=== PATIENT | female | born 1970 | race Caucasian/White ===

== ENCOUNTER 2017-02-25 11:19 | Inpatient (IN) | payer OTHER ==
[2017-02-25] VITALS (9 sets, daily range): BP systolic 102–142; BP diastolic 45–80; PULSE 34–43; RESP 15–21; Ht 162.6 cm; Wt 64.3 kg
[~2017-02-25] VITALS: Ht 162.6 cm; Wt 64.3 kg
[~2017-02-25 11:19] MED LIST: DIAZ10TA4 PO; GABA300C16 PO; QUET400T PO
[2017-02-25] MEDS ORDERED: SOD CHLORIDE 0.9% 1,000 ML IV STA (11:32)
[2017-02-25] MEDS ORDERED: PROMETHAZINE 25 MG TAB PO ONE (12:00)
[2017-02-25] MEDS ORDERED: LEVE-5 PO (12:15)
[2017-02-25] MEDS ORDERED: DUR75P TD (12:15)
[2017-02-25 12:16] LABS: ADD SCAN DIFF NO
[2017-02-25] MEDS ORDERED: CLON-379 PO (12:16)
[2017-02-25 12:18] LABS: BASOPHILS % 0.4 % (0.0-2.0); EOSINOPHILS # 0.1 10^3/ul (0.0-0.5); EOSINOPHILS % 0.8 % (0.0-7.0); HEMATOCRIT 38.3 % (37.0-47.0); HEMOGLOBIN 12.6 g/dl (12.0-16.0); LYMPHOCYTES # 2.4 10^3/ul (0.8-2.9); LYMPHOCYTES % 32.1 % (15.0-51.0); MEAN CORPUSCULAR HGB CONC 32.9 g/dl (32.0-37.0); MEAN CORPUSCULAR VOLUME 85.1 fl (82.0-101.0); MEAN PLATELET VOLUME 10.5 fl (7.4-10.4); MONOCYTE # 0.4 10^3/ul (0.3-0.9); MONOCYTES % 5.2 % (0.0-11.0); NEUTROPHIL # 4.5 10^3/ul (1.6-7.5); NEUTROPHILS % 61.4 % (39.0-77.0); PLATELET COUNT 273 10^3/UL (140-415); RED CELL DISTRIBUTION WIDTH 14.4 % (11.5-14.5); WHITE BLOOD COUNT 7.3 10^3/ul (4.8-10.8)
[2017-02-25 12:42] LABS: INR 1.02; PROTIME 13.4 Sec (12.2-14.2)
[2017-02-25 12:43] LABS: ANION GAP 13 (8-16); BLOOD UREA NITROGEN 13 mg/dl (7-20); CALCIUM 9.7 mg/dl (8.4-10.2); CARBON DIOXIDE 23 mmol/L (21-31); CHLORIDE 108 mmol/L (97-110); CREATININE 0.66 mg/dl (0.44-1.00); GLUCOSE 127 mg/dl (70-220); PARTIAL THROMBOPLASTIN TIME 20.3 Sec (25.0-35.0); POTASSIUM 3.8 mmol/L (3.5-5.1); SODIUM 140 mmol/L (135-144)
[2017-02-25 12:59] LABS: TROPONIN-I < 0.012 ng/ml (0.00-0.12)
[2017-02-25] MEDS ORDERED: ACETAMINOPHEN 500 MG TAB PO STA (12:59)
--- NOTE | 2017-02-25 13:30 | RADRPT ---
PROCEDURE: Chest x-ray CLINICAL INDICATION: Chest pain TECHNIQUE: Chest single view COMPARISON: 01/10/2015 FINDINGS: The heart is normal in size. The pulmonary vessels are normal in caliber. The lungs are clear. Th e costophrenic angles are sharp. The visualized bony thorax is unremarkable. IMPRESSION: No acute cardiopulmonary disease. RPTAT: HH .José Srinivasan MD, Date Time Electronically viewed and signed by .José Srinivasan MD, MD on 02/25/2017 13:29 .W/
[2017-02-25] MEDS ORDERED: NALOXONE (0.4 MG/ML) INJ ONE (13:34)
[2017-02-25] MEDS ORDERED: NALOXONE (0.4 MG/ML) INJ IV ONE (14:00)
[2017-02-25] MEDS ORDERED: SOD CHLORIDE 0.9% 1,000 ML IV SCH (14:48)
--- NOTE | 2017-02-25 14:54 | ERA ---
ER Documentation Chief Complaint Date/Time DATE: 02/25/17 TIME: 14:50 Chief Complaint WITNESSED SYNCOPAL EPISODE HPI This is a 46-year-old female who presents to the emergency room after a syncopal episode. The patient states that she was at her pain management clinic and they did take a blood pressure noted her systolic pressure was 70. The patient was complaining of dizziness. They did stand her up to help her walk and she passed out. The patient states that she is feeling weak and dizzy and came to the ER by ambulance for evaluation from her pain management clinic. The patient states she has a history of a spinal tumor however she has not found a surgeon to remove the tumor at this point ROS All systems reviewed and are negative except as per history of present illness. Medications Home Meds Reported Medications Clonidine Hcl* (Clonidine Hcl*) 0.1 Mg Tab, 0.1 MG PO DAILY, TAB 02/25/17 Levetiracetam* (Keppra*) 500 Mg Tablet, 500 MG PO BID, TAB 02/25/17 Fentanyl Patch* (Duragesic Patch*) 75 Mcg/Hr Transdermal Patch, 50 PATCH TD Q72H , PATCH 02/25/17 Gabapentin* (Gabapentin*) 300 Mg Capsule, 300 MG PO BID, CAP 01/06/15 Diazepam* (Diazepam*) 10 Mg Tablet, 10 MG PO QHS, TAB 01/06/15 Quetiapine Fumarate* (Seroquel*) 400 Mg Tablet, 400 MG PO HS, TAB 01/06/15 Discontinued Reported Medications Diazepam* (Diazepam*) 10 Mg Tablet, 10 MG PO BID Y for ANXIETY, TAB 01/06/15 Allergies Allergies: Coded Allergies: ketorolac (Verified Allergy, Unknown, 01/10/15) metoclopramide (Verified Allergy, Unknown, 01/10/15) ondansetron (Verified Allergy, Unknown, 01/10/15) prednisone (Verified Allergy, Unknown, 01/10/15) prochlorperazine (Verified Allergy, Unknown, 01/06/15) PMhx/Soc History of Surgery: No Anesthesia Reaction: No Hx Neurological Disorder: No Hx Respiratory Disorders: Yes (Chronic URI) Hx Cardiac Disorders: No Hx Psychiatric Problems: No Hx Miscellaneous Medical Probl: Yes (Atopic Dermatitis;Scabies, "INFECTION IN BRAIN") Hx Alcohol Use: No Hx Substance Use: No Hx Tobacco Use: No Smoking Status: Never smoker Physical Exam Vitals Vital Signs Date Time Temp Pulse Resp B/P Pulse Ox O2 Delivery O2 Flow Rate FiO2 02/25/17 13:10 42 22 98/71 100 Nasal Cannula 2.0 02/25/17 13:08 Nasal Cannula 2 02/25/17 11:21 98.5 53 14 95/71 98 Physical Exam INITIAL VITAL SIGNS: Reviewed by me GENERAL: The patient is well developed and appropriate for usual state of health in no apparent distress HEENT: Dry mucous membranes, pupils equal, round, and reactive to light. EOMI. There is no scleral icterus. NECK: C-spine is soft and supple, there is no meningismus. There is no cervical lymphadenopathy. LUNGS: Clear to auscultation bilaterally. There are no rales, wheezes or rhonchi. HEART: Bradycardic, no murmurs, clicks, rubs or gallops. ABDOMEN: Soft, non-tender, non-distended. There are bowel sounds in all four quadrants. No rebound or guarding. EXTREMITIES: There is no peripheral cyanosis or edema. No focal swelling or erythema. NEUROLOGICAL: The patient moves all four extremities with 5/5 strength. Cranial nerves II - XII are intact. Normal gait. Alert and oriented SKIN: There is no apparent rash or petechiae. HEME/LYMPHATIC: There is no evidence of excessive bruising or lymphedema. PSYCHIATRIC: The patient does not appear anxious or depressed. Result Diagram: 02/25/17 1210 02/25/17 1210 Results 24 hrs Laboratory Tests Test 02/25/17 12:10 White Blood Count 7.310^3/ul Red Blood Count 4.5010^6/ul Hemoglobin 12.6g/dl Hematocrit 38.3% Mean Corpuscular Volume 85.1fl Mean Corpuscular Hemoglobin 28.0pg Mean Corpuscular Hemoglobin Concent 32.9g/dl Red Cell Distribution Width 14.4% Platelet Count 34055^3/UL Mean Platelet Volume 10.5fl Neutrophils % 61.4% Lymphocytes % 32.1% Monocytes % 5.2% Eosinophils % 0.8% Basophils % 0.4% Nucleated Red Blood Cells % 0.0/100WBC Neutrophils # 4.510^3/ul Lymphocytes # 2.410^3/ul Monocytes # 0.410^3/ul Eosinophils # 0.110^3/ul Basophils # 0.010^3/ul Nucleated Red Blood Cells # 0.010^3/ul Prothrombin Time 13.4Sec Prothrombin Time Ratio 1.0 INR International Normalized Ratio 1.02 Activated Partial Thromboplast Time 20.3Sec Sodium Level 140mmol/L Potassium Level 3.8mmol/L Chloride Level 108mmol/L Carbon Dioxide Level 23mmol/L Anion Gap 13 Blood Urea Nitrogen 13mg/dl Creatinine 0.66mg/dl Glucose Level 127mg/dl Calcium Level 9.7mg/dl Troponin I < 0.012ng/ml Current Medications Medications (Trade) Dose Ordered Sig/Smith Route PRN Reason Start Time Stop Time Status Last Admin Dose Admin Sodium Chloride (NS) 1,000 ml @ 1,000 mls/hr Q1H STAT IV 02/25/17 11:32 02/25/17 12:31 DC 02/25/17 12:00 Promethazine HCl (Phenergan) 25 mg ONCE ONCE PO 02/25/17 12:00 02/25/17 12:01 DC 02/25/17 12:30 Acetaminophen (Tylenol Tab) 1,000 mg ONCE STAT PO 02/25/17 12:59 02/25/17 13:00 DC 02/25/17 13:08 Naloxone HCl (Narcan) 0.1 mg ONCE ONCE IV 02/25/17 14:00 02/25/17 14:01 DC Naloxone HCl (Narcan) 0.4 mg STK-MED ONCE .ROUTE 02/25/17 13:34 02/25/17 13:35 DC Diphenhydramine HCl 25 mg 25 mg ONCE ONCE PO 02/25/17 15:00 02/25/17 15:01 Sodium Chloride (NS) 1,000 ml @ 80 mls/hr [id number] IV 02/25/17 14:48 02/26/17 03:17 Acetaminophen (Tylenol Tab) 650 mg ER BRIDGE PRN PO MILD PAIN/FEVER 02/25/17 15:00 02/26/17 14:59 Procedures/MDM EKG: Rate/Rhythm: Sinus bradycardia QRS, ST, T-waves: [No changes consistent w/ acute ischemia] Impression: [No evidence of ischemia or arrhythmia] Chest X-ray 1V Interpreted by me: Soft Tissue: No acute abnormalities Bones: No acute abnormalities Mediastinum/Cardiac Silhouette/Lungs: [No acute abnormalities] This 46-year-old female presents to the emergency room for evaluation of generalized weakness and syncopal episode. When I evaluated her she did have bradycardia. She was hypotensive with a systolic blood pressure of 74. I did did give the patient 2 L of fluid. The patient did state that she is not a strong narcotics. 0.1 mg of Narcan was given to this patient. The patient did have an increase in her blood pressure to 92 systolic, her heart rate was 65 bpm. As we are trying to ambulate this patient prior to discharge she felt extremely dizzy and stated she cannot ambulate. This patient will be placed in for admission at this time for gentle hydration and cardiac evaluation for symptomatic bradycardia Departure Diagnosis: Primary Impression: Symptomatic bradycardia Additional Impression: Syncope Condition: ANDREW Farah DO February 25, 2017 14:54
[2017-02-25] MEDS ORDERED: DIPHENHYDRAMINE 25 MG CAP PO ONE (15:00)
[2017-02-25] MEDS ORDERED: ACETAMINOPHEN 325 MG TAB PO PRN (15:00)
[2017-02-25] MEDS ORDERED: MAGNESIUM HYDROXIDE 30ML CUP PO PRN (18:00)
[2017-02-25] MEDS ORDERED: ALBUTEROL/IPRATROPIUM (NEB) 3 ML AMP HHN PRN (18:00)
[2017-02-25] MEDS ORDERED: ONDANSETRON 4 MG INJ IV PRN (18:00)
[2017-02-25] MEDS ORDERED: LORAZEPAM 2 MG INJ IV PRN (18:00)
[2017-02-25] MEDS ORDERED: NA PHOSPHATE/BIPHOS 133 ML ENEMA PR PRN (18:00)
[2017-02-25] MEDS ORDERED: hydrALAzine 20 MG INJ IV PRN (18:00)
[2017-02-25] MEDS: SOD CHLORIDE 0.9% 1,000 ML IV SCH (18:14)
[2017-02-25] MEDS: HYDROCODONE/APAP (5/325) TAB PO PRN (18:27)
[2017-02-25 18:47] LABS: CREATINE KINASE 41 IU/L (23-200)
[2017-02-25 18:56] LABS: CK-MB < 0.22 ng/ml (0.0-2.4)
[2017-02-25 18:59] LABS: TROPONIN-I < 0.012 ng/ml (0.00-0.12)
[2017-02-25] MEDS ORDERED: LORAZEPAM (2 MG/ML PO SYG) SL STA (20:32)
[2017-02-25] MEDS: LEVETIRACETAM 500 MG TAB PO SCH (21:06)
[2017-02-25] MEDS: morphine 2 MG INJ IV PRN (21:07)
[2017-02-25] MEDS: HEPARIN 5,000 UNIT/0.5 ML VIAL SC SCH (21:07)
[2017-02-26] VITALS (22 sets, daily range): BP systolic 89–123; BP diastolic 59–97; PULSE 33–50; RESP 12–25
[2017-02-26 01:29] LABS: CREATINE KINASE 44 IU/L (23-200)
[2017-02-26 01:46] LABS: CK-MB < 0.22 ng/ml (0.0-2.4); TROPONIN-I < 0.012 ng/ml (0.00-0.12)
[2017-02-26] MEDS: PROMETHAZINE 25 MG TAB PO PRN ×3 (03:10→15:11)
[2017-02-26] MEDS: SOD CHLORIDE 0.9% 1,000 ML IV SCH ×3 (03:56→21:07)
[2017-02-26] MEDS: PANTOPRAZOLE (EC) 40 MG TAB PO SCH (05:25)
[2017-02-26] MEDS: HYDROCODONE/APAP (5/325) TAB PO PRN (05:26)
[2017-02-26] MEDS ORDERED: LIDOCAINE 1% (MPF) 5 ML VIAL SC ONE (05:30)
--- NOTE | 2017-02-26 07:58 | HP ---
DATE OF ADMISSION: 02/25/2017 TIME SEEN: 2300 CHIEF COMPLAINT: Loss of consciousness. HISTORY OF PRESENT ILLNESS: The patient is a 46-year-old female with a history of spinal tumor, sei zure, anxiety, dermatitis, pulmonary aspergillosis who was sent from the clinic after she had a sync opal episode. The patient was at the Pain Clinic when she felt dizzy. Blood pressure reportedly at that time shows a systolic blood pressure in the low 70s. The patient continues to feel dizzy with generalized weakness, and reportedly had an episode of syncope or near syncope. She was then sent to the ER for further evaluation. The patient's main complaint at this time is generalized body hany n, especially back pain as well as headache and nausea. When the patient presented to the ER, blood pressure was 95/71, heart rate 53, respiratory rate 14, temperature 98.5, oxygen saturation 98% on room air. She then became progressively bradycardic, and since presentation to the ER, her heart rate has remained in the 30s with the lowest documented ana ng 34. Her systolic blood pressure for the most part has been in the low 100s as well as in the 90s . Laboratory value shows a normal CBC and BMP, and her troponins have been negative. Chest x-ray s hows no acute cardiopulmonary disease. EKG shows sinus bradycardia, no heart block was noted. The patient was initially admitted to the telemetry unit, but has been transferred to ICU. REVIEW OF SYSTEMS: A 12-point review of systems was performed, negative except as mentioned in the HPI. PAST MEDICAL HISTORY: As per HPI. PAST SURGICAL HISTORY: She states she has multiple back surgeries. SOCIAL HISTORY: Denied a history of tobacco, alcohol, or illicit drug use. ALLERGIES: 1. TORADOL. 2. REGLAN. 3. ZOFRAN. 4. PREDNISONE 5. PROCHLORPERAZINE. HOME MEDICATIONS: 1. Clonidine. 2. Diazepam. 3. Fentanyl patch. 4. Gabapentin. 5. Keppra. 6. Seroquel. PHYSICAL EXAMINATION: VITAL SIGNS: Blood pressure 121/77, heart rate 34, respiratory rate 21, temperature 97.9, oxygen sa turation 100% on 2 L. GENERAL: The patient is in mild distress due to generalized pain as well as back pain. HEENT: No obvious head deformity, pupils react to light, extraocular muscles intact. CARDIOVASCULAR: Bradycardic with regular rhythm. LUNGS: Clear. ABDOMEN: Soft, nontender, nondistended. Positive bowel sounds. EXTREMITIES: No edema. NEUROLOGIC: No focal deficits. LABORATORY: CBC and BMP are within normal limits. Her troponins have been negative. IMAGING: Chest x-ray shows no acute cardiopulmonary disease. IMPRESSION: 1. Sinus bradycardia, likely related to probable excessive pain medication. 2. History of spinal tumor. 3. History of seizure. 4. History of depression/anxiety. 5. Chronic pain. 6. History of pulmonary aspergillosis. PLAN: Continue ICU monitoring. Avoid narcotics and sedatives. She is currently awaiting evaluatio n per cardiology. We will obtain a 2-D echo. We will check her TSH and her thyroid profile. Further workup and management will be per clinical course. Dictated By: CHELA MOURA/MONIKA Conf#: [id number] DID#: [id number]
[2017-02-26] MEDS: LEVETIRACETAM 500 MG TAB PO SCH ×2 (08:47→20:33)
[2017-02-26] MEDS: HEPARIN 5,000 UNIT/0.5 ML VIAL SC SCH ×2 (08:48→20:43)
--- NOTE | 2017-02-26 10:39 | CONS ---
Date/Time of Note Date/Time of Note DATE: 02/26/17 TIME: 10:32 Assessment/Plan Assessment/Plan Additional Assessment/Plan Sinus bradycardia Hypotension Chronic pain on narcotics Spinal pathology -Patient with multiple possible etiologies for her bradycardia including her multiple narcotics, Catapres as well as possible neurologic etiology. Blood pressure has improved with IV fluids and heart rate is improving as well. We will continue to hold any antihypertensives or AV irineo blocking agents at the current time. Continue telemetry monitoring, check echocardiogram. 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 While she was there, patient was feeling lightheaded and fatigued. She states her blood pressure was in the 70s. She lie down and felt better. She went outside waiting for her ride and came back in because of the weather was very warm. With coming back in the building, patient passed out. She does not fully recall the episode. Because of the above, she was brought to the emergency room for further evaluation and care. She does complain of intermittent headaches, back and shoulder pain. She does complain of chest pain with deep inspiration which has been on and off for some time. She does tell me she has a history of a severe lung infection and has been having these chest pains since then. She currently feels better. She denies any dizziness or lightheadedness. She denies any current chest pain or shortness of breath. In the emergency room, patient's blood pressure improved with IV fluids and Narcan. She has been on multiple medications including fentanyl patch, Dilaudid , [place], Catapres. Past Medical History Multiple infections Spinal pathology Chronic pain Past Surgical History Multiple spine surgeries Family History Significant Family History: no pertinent family hx Social History Alcohol Use: none Smoking Status: Former smoker Exam/Review of Systems Vital Signs Vitals Vital Signs Date Time Temp Pulse Resp B/P Pulse Ox O2 Delivery O2 Flow Rate FiO2 02/26/17 10:00 50 20 96/80 96 Room Air 02/26/17 08:00 98.6 02/26/17 05:51 21 02/25/17 23:00 2.0 Intake and Output 02/25/17 02/25/17 02/26/17 15:00 23:00 07:00 Intake Total 200 ml 90 ml Output Total 400 ml Balance 200 ml -310 ml Exam No apparent distress, able to give history Constitutional: alert, oriented Head: normocephalic Respiratory: other (Coarse breath sounds bilaterally, no wheezing) Cardiovascular: other (S1-S2 heard), regular rate and rhythm Gastrointestinal: bowel sounds, non-tender, other (No guarding), soft Extremities: other (No edema) Results Result Diagram: 02/25/17 1210 02/25/17 1210 Results 24 hrs Laboratory Tests Test 02/25/17 12:10 02/25/17 18:10 02/26/17 01:00 White Blood Count 7.3 # Red Blood Count 4.50 Hemoglobin 12.6 # Hematocrit 38.3 # Mean Corpuscular Volume 85.1 Mean Corpuscular Hemoglobin 28.0 L Mean Corpuscular Hemoglobin Concent 32.9 Red Cell Distribution Width 14.4 # Platelet Count 273 Mean Platelet Volume 10.5 #H Neutrophils % 61.4 Lymphocytes % 32.1 Monocytes % 5.2 Eosinophils % 0.8 Basophils % 0.4 Nucleated Red Blood Cells % 0.0 Neutrophils # 4.5 Lymphocytes # 2.4 Monocytes # 0.4 Eosinophils # 0.1 Basophils # 0.0 Nucleated Red Blood Cells # 0.0 Prothrombin Time 13.4 Prothrombin Time Ratio 1.0 INR International Normalized Ratio 1.02 Activated Partial Thromboplast Time 20.3 L Sodium Level 140 Potassium Level 3.8 Chloride Level 108 Carbon Dioxide Level 23 Anion Gap 13 Blood Urea Nitrogen 13 Creatinine 0.66 Glucose Level 127 Calcium Level 9.7 Troponin I < 0.012 < 0.012 < 0.012 Creatine Kinase 41 44 Creatine Kinase Index 0.5 0.5 Creatinine Kinase MB (Mass) < 0.22 < 0.22 Free Thyroxine 0.68 Medications Medications Current Medications Ondansetron HCl (Zofran Inj) 4 mg Q6H PRN IV NAUSEA AND/OR VOMITING; Start at 18:00 Acetaminophen (Tylenol Tab) 650 mg Q6H PRN PO PAIN LEVEL 1-3 OR FEVER; Start at 18:00 Acetaminophen/ Hydrocodone Bitart ([place] (5/325)) 1 tab Q6H PRN PO MODERATE PAIN LEVEL 4-6 Last administered on 02/26/17 05:26; Admin Dose 1 TAB; Start at 18:00 Morphine Sulfate (morphine) 2 mg Q4H PRN IV SEVERE PAIN LEVEL 7-10 Last administered on 02/25/17 21:07; Admin Dose 2 MG; Start 02/25/17 at 18:00 Docusate Sodium (Colace) 100 mg Q12H PRN PO CONSTIPATION; Start 02/25/17 at 18: 00 Magnesium Hydroxide (Milk Of Mag) 30 ml DAILY PRN PO CONSTIPATION; Start at 18:00 Sodium Biphosphate/ Sodium Phosphate (Fleet Enema) 133 ml DAILY PRN CO CONSTIPATION; Start 02/25/17 at 18:00 Pantoprazole (Protonix Tab) 40 mg DAILY@06 PO Last administered on 02/26/17 05 :25; Admin Dose 40 MG; Start 02/26/17 at 06:00 Heparin Sodium (Porcine) (Heparin (5000 Units/0.5 ml)) 5,000 unit Q12 SC Last administered on 02/26/17 08:48; Admin Dose 5,000 UNIT; Start 02/25/17 at 21:00 Lorazepam 0.5 mg 0.5 mg Q6H PRN IV ANXIETY Last administered on 02/25/17 23:19 ; Admin Dose 0.5 MG; Start 02/25/17 at 18:00 Sodium Chloride (NS) 1,000 ml @ 100 mls/hr Q10H IV Last administered on 18:14; Admin Dose 100 MLS/HR; Start 02/25/17 at 17:56 Hydralazine HCl (Apresoline) 10 mg Q6H PRN IV ELEVATED BLOOD PRESSURE; Start at 18:00 Nitroglycerin (Nitroglycerin (Sl Tab) 0.4 Mg) 1 tab Q5M PRN SL ANGINA; Start at 18:00 Levetiracetam (Keppra) 500 mg BID PO Last administered on 02/26/17 08:47; Admin Dose 500 MG; Start 02/25/17 at 21:00 Promethazine HCl (Phenergan) 25 mg Q6H PRN PO NAUSEA AND/OR VOMITING Last administered on 02/26/17t 03:10; Admin Dose 25 MG; Start 02/25/17 at 21:00 Procedures Procedures ECG demonstrates sinus bradycardia at 50 bpm, QRS 86 ms, no significant ischemic STT wave abnormalities Telemetry reviewed with sinus bradycardia as low as 33 bpm. Brayden Ramirez DO February 26, 2017 10:39
--- NOTE | 2017-02-26 11:00 | RADRPT ---
PROCEDURE: XR Chest. CLINICAL INDICATION: PICC line placement TECHNIQUE: Single frontal view of the chest was obtained COMPARISON: 01/10/2015 FINDINGS: There is a new left-sided PICC line in place with its tip overlying the mid right atrium. The heart is normal in size. There is mild left lower lobe atelectasis. There is no pleural effusi on or pneumothorax. RPTAT: AA IMPRESSION: New PICC line in appropriate position. Mild left lower lobe linear atelectasis. .Jimi Valverde MD, MD Date Time Electronically viewed and signed by .Jimi Valverde MD, on 02/26/2017 10:59 .S/
[2017-02-26] MEDS: morphine 2 MG INJ IV PRN (11:13)
[2017-02-26] MEDS ORDERED: DIPHENHYDRAMINE 25 MG CAP PO PRN (11:30)
[2017-02-26 12:21] LABS: ADD SCAN DIFF NO
[2017-02-26 12:26] LABS: BASOPHILS % 0.5 % (0.0-2.0); EOSINOPHILS # 0.1 10^3/ul (0.0-0.5); HEMATOCRIT 34.3 % (37.0-47.0); HEMOGLOBIN 11.3 g/dl (12.0-16.0); LYMPHOCYTES # 2.8 10^3/ul (0.8-2.9); LYMPHOCYTES % 45.3 % (15.0-51.0); MEAN CORPUSCULAR HGB CONC 32.9 g/dl (32.0-37.0); MEAN CORPUSCULAR VOLUME 84.9 fl (82.0-101.0); MONOCYTE # 0.4 10^3/ul (0.3-0.9); MONOCYTES % 5.7 % (0.0-11.0); NEUTROPHIL # 2.9 10^3/ul (1.6-7.5); NEUTROPHILS % 47.3 % (39.0-77.0); PLATELET COUNT 280 10^3/UL (140-415); RED BLOOD COUNT 4.04 10^6/ul (4.20-5.40); RED CELL DISTRIBUTION WIDTH 13.9 % (11.5-14.5); WHITE BLOOD COUNT 6.1 10^3/ul (4.8-10.8)
[2017-02-26] MEDS ORDERED: FENTAnyl PATCH 50 MCG/HR TRANSDERM SCH (12:30)
--- NOTE | 2017-02-26 12:41 | RADRPT ---
Echocardiogram Report Patient Name: SHASHI LOWERY Gender: Female Date: 1970 Study Date: 26-Feb-2017 Mine Manager: Lex Brown RDCS Location: [id number] Ref. Physician: BUNNY STORY Quality: Good Procedures: Transthoracic echocardiogram with complete 2D, M-Mode, and doppler examination. Indications: Bradycardia. 2D/M Mode Doppler Measurement Value Normal Ranges Measurement Value Normal Ranges LVIDd 2D 3.5 3.5 - 5.6 cm AV Peak [place] 1.2 m/sec LVIDs 2D 1.9 2.1 - 4.1 cm AV Peak PG 6.0 mmHg FS 2D 46.1 % LVOT Peak [place] 1.0 m/sec LVPWd 2D 0.8 0.6 - 1.1 cm LVOT Peak PG 4.0 mmHg IVSd 2D 0.9 0.6 - 1.1 cm MV E Peak [place]arr[place] 0.9 m/sec IVS/LVPW 2D 1.1 MV A Peak [place]arr[place] 0.5 m/sec AoR Diam 2D 2.6 2.0 - 3.7 cm MV E/A 1.8 LA/Ao 2D 1 0 - 1 MV Decel Time 204 msec EDV 2D 41.8 cm3 MV E/A 1.8 ESV 2D 6.5 cm3 TR Peak [place] 2.4 m/sec LA Dimen 2D 2.6 2.3 - 4.0 cm TR Peak PG 23.0 mmHg RVSP 26.0 mmHg Findings Left Ventricle: Normal left ventricular systolic function. Normal left ventricular cavity size. Normal left ventricular wall thickness. Ejection fraction is visually estimated at 65 %. Right Ventricle: Normal right ventricular size. Normal right ventricular systolic function. Left Atrium: The left atrium is normal in size. Right Atrium: The right atrium is normal in size. Mitral Valve: Normal appearance and function of the mitral valve with trace physiologic regurgitation. Aortic Valve: No hemodynamically significant aortic stenosis by doppler. Aortic cusps appear mildly calcified. Trace aortic valve regurgitation. Tricuspid Valve: Normal appearance of the tricuspid valve. Estimated peak PA systolic pressure 26 mmHg. There is mild tricuspid regurgitation. Pulmonic Valve: Normal pulmonic valve appearance. There is mild pulmonic regurgitation. Pericardium: Normal pericardium with no significant pericardial effusion. Aorta: Normal aortic root. IVC: Normal size and normal respiratory collapse consistent with normal right atrial pressure. Conclusions 1.Normal left ventricular systolic function. Normal left ventricular cavity size. Normal left ventricular wall thickness. Ejection fraction is visually estimated at 65 %. 2.Normal right ventricular size. Normal right ventricular systolic function. 3.The left atrium is normal in size. 4.The right atrium is normal in size. 5.Estimated peak PA systolic pressure 26 mmHg. There is mild tricuspid regurgitation. 6.There is mild pulmonic regurgitation. 7.Normal appearance and function of the mitral valve with trace physiologic regurgitation. 8.No hemodynamically significant aortic stenosis by doppler. Trace aortic valve regurgitation. 9.Normal pericardium with no significant pericardial effusion. Electronically Signed By: Brayden Ramirez 26-Feb-2017 12:41:01 -0700 Patient Name: SHASHI LOWERY Study Date: 26-Feb-2017 [id number]
[2017-02-26 12:50] LABS: CALCIUM 8.8 mg/dl (8.4-10.2); CREATININE 0.56 mg/dl (0.44-1.00); MAGNESIUM 1.7 mg/dl (1.7-2.5); PHOSPHORUS 3.6 mg/dl (2.5-4.9); POTASSIUM 3.6 mmol/L (3.5-5.1)
--- NOTE | 2017-02-26 12:52 | CONS ---
DATE OF ADMISSION: 02/25/2017 DATE OF CONSULTATION: 02/26/2017 PAIN MEDICINE CONSULTATION HISTORY OF PRESENT ILLNESS: This is a very pleasant 46-year-old female who was admitted to [facility] with a syncopal episode, but not true vertigo. From a pain management standpoi nt, she says she has a longstanding history of low back discomfort. She has had 5 surgical procedur es, the last done approximately 2 years ago. She has had multiple epidural shots. She states that she had radiations into the left lower extremity which she describes as sharp, constant discomfort g oing all the way down into her calf ____ this pain is severe. Denies any serious warning signs, but she states she is incontinent of urine, but she is not incontinent of stool, pelvic anesthesia, or recent history of febrile disorder or a major acceleration of her pain. As an outpatient, the patie nt has taken a combination of Dilaudid and fentanyl, although her primary care pain management docto r has stopped the Dilaudid. She only takes fentanyl 50 mcg patch. With that, she states that she h as reasonably good alleviation of her discomfort. The rating is as per above. Not a numerical rati ng, but a subjective rating on her part. She gets significant relief once again from her current pa in control medication. She states she has been nauseous, but not vomiting. No history of constipat ion, pruritus, mental cloudiness, sweating, fatigue, or drowsiness associated with her current pain control medication. She does not appear to be overly sedated at this time. There is no history of purposeful over sedation, negative mood changes, request for frequent injections. No history of ove rdosing in the past, using pain control medications in response to situational stressors, nor does s he insist a certain medication by name or the only medication that she can take. There is no histor y abuse of smoking or drinking or any illicit drug use. Her overall severity of pain is severe. Th e patient's past medical history is somewhat complicated. 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 Questionable history of spinal tumors which is unclear at t his time, anxiety, dermatitis, pulmonary aspergillosis. Apparently she had been seen at a pain [facility], but has not had a workup yet secondary to insurance purposes. She has been referred to neurosurgeon; however, neurosurgical consultation in the community has been refused because of he r insurance status. MEDICATIONS: Please refer to reconciliation sheets. ALLERGIES: 1. TORADOL. 2. REGLAN. 3. ZOFRAN. 4. PREDNISONE. 5. PROCHLORPERAZINE. MAJOR MEDICAL PROBLEMS: As per history of present illness. SOCIAL HISTORY: Nonsmoker, nondrinker. FAMILY HISTORY: Noncontributory towards this examination. REVIEW OF SYSTEMS: A 12-point review of systems unremarkable except what is as per history of prese nt illness. PHYSICAL EXAMINATION: GENERAL: Shows a well-nourished, well-developed, very pleasant female who is currently in no major acute distress. VITAL SIGNS: Blood pressure 99/68, pulse of 40 and regular, respirations of 13, sats 99% on room ai r. HEENT: She is normocephalic and atraumatic. Anicteric, acyanotic. CHEST: Shows bilateral clear breath sounds throughout both lung [place]. CORONARY: S1, S2, without S3, S4, murmur, gallop, rub. Normal rate, normal rhythm. NEUROLOGIC: She is oriented x3. Affect is affable and pleasant. Cranial nerves II through XII are grossly intact. Motor and sensory findings nonfocal. EXTREMITIES: There is no gross evidence of neurological deficits, bilateral lower extremity. Motor , sensory grossly intact. LABORATORY TESTS: White blood cell count of 7.3, hemoglobin of 12.6, hematocrit of 38.3, MCV of 85. 1, platelet count of 273,000. Chemistry: Serum sodium 140, potassium 3.8, chloride 108, bicarbonat e 23, BUN of 13, creatinine 0.66, blood sugar 127. Serum sodium 140, potassium 3.8, chloride 108, b icarbonate 13, creatinine 0.66, blood sugar 127. Chest x-ray: No acute cardiopulmonary disease. ASSESSMENT AND PLAN: Insofar as pain management issue, this patient is on a fentanyl and her pain c ontrol seems to be reasonably under control at this time. I will discontinue other pain control med ications including [place], stop the Lorazepam, discontinue morphine, just continue with her fentanyl patch at 50 mcg, change every 72 hours. Will follow during this hospitalization. On another point, the patient states that her only medication which recently added was Catapres. I have conveyed thi s information to Dr. Brayden Ramirez and Dr. Gonzalez. I will follow while in-house. As an outpatient, I would strongly suggest that patient discontinue long-acting opioids including fentanyl and just sh ort acting as needed. Dictated By: BEAU GARCIA MD LP/MONIKA Conf#: [id number] DID#: [id number]
[2017-02-26 13:19] LABS: THYROID STIMULATING HORMONE 2.09 MIU/L (0.465-4.680)
[2017-02-26] MEDS ORDERED: DIPHENHYDRAMINE 50 MG INJ IV PRN (13:30)
--- NOTE | 2017-02-26 13:40 | PN ---
DATE: 02/26/2017 SUBJECTIVE: Patient alert. No complaints of chest pain, transferred to ICU last night because of c ontinued bradycardia. Seen by cardiology team and pain management team this morning. OBJECTIVE: VITAL SIGNS: Again, heart rate ranges still in the 36 to 40 range. The rest of the vital signs are stable including blood pressure. GENERAL: The patient lying in bed, presently getting PICC line in no acute distress. HEENT: Pupils equal, round, react to light. Extraocular muscles intact. NECK: Supple, no thyromegaly. LUNGS: Clear to auscultation bilaterally. CARDIOVASCULAR: Bradycardic heart sounds. No rubs or gallops. ABDOMEN: Soft, nontender, nondistended. Normal bowel sounds. No rebound or guarding. MUSCULOSKELETAL: No lower extremity bilaterally. NEUROLOGIC: No focal deficits. LABORATORY DATA: There is no new CBC or basic metabolic panel from this morning, it is still pendin g. Free T4 is 0.68 is normal. 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 1. Syncope. Again, continue to monitor for now. Most likely this is secondary to bradycardia. We are trying to work out why patient has bradycardia. Follow up consult recommendations for now. Co nsider MRI of the brain. 2. Sinus bradycardia. EKG did not show any signs of any heart block. Upon further questioning, ap parently the patient had been started on Catapres or clonidine about a month and a half ago. This c ould be possible source of patient's bradycardia. The patient has also been taking fentanyl patch a t home and Dilaudid. This could be less likely but also possibly be a cause of the patient's bradyc ardia. In any event, she is going to be off of those medications for now. Follow up cardiology and pain management recommendations. Continue to monitor heart rate very carefully. Follow up with ec hocardiogram results. 3. History of spinal tumor. Continue to monitor for now. Consider PT consult as well, pain manage ment. 4. History of seizures. Continue Keppra. 5. History of anxiety and depression. Continue to monitor for now. 6. Ativan p.r.n. 7. Chronic pain. Again, continue to follow up recommendations from the pain management team. 8. History of pulmonary aspergillosis. Monitor for now. 9. Neurocysticercosis, again consider brain imaging for now as well. Monitor for any seizures. 10 . Gastrointestinal prophylaxis. PPI. 11. Deep venous thrombosis prophylaxis. Heparin subcutaneously. 12. Critical care time spent on patient care today 40 minutes. Dictated By: BUNNY BISHOP Conf#: [id number] DID#: [id number]
[2017-02-26] MEDS ORDERED: SOD CHLORIDE 0.9% 100 ML ONE (13:52)
[2017-02-26] MEDS: ACETAMINOPHEN 325 MG TAB PO PRN (14:07)
[2017-02-26] MEDS: DIPHENHYDRAMINE 50 MG INJ IV PRN (20:34)
[2017-02-26] MEDS: QUETIAPINE 100 MG TAB PO SCH (22:12)
[2017-02-27] VITALS (23 sets, daily range): BP systolic 73–121; BP diastolic 54–85; PULSE 40–77; RESP 12–28
[2017-02-27] MEDS: DIPHENHYDRAMINE 50 MG INJ IV PRN ×5 (02:38→22:38)
[2017-02-27] MEDS: PANTOPRAZOLE (EC) 40 MG TAB PO SCH (06:24)
[2017-02-27 06:27] LABS: ADD SCAN DIFF NO
[2017-02-27 06:37] LABS: BASOPHILS % 0.6 % (0.0-2.0); EOSINOPHILS # 0.1 10^3/ul (0.0-0.5); EOSINOPHILS % 1.8 % (0.0-7.0); HEMOGLOBIN 10.6 g/dl (12.0-16.0); LYMPHOCYTES # 2.5 10^3/ul (0.8-2.9); LYMPHOCYTES % 48.2 % (15.0-51.0); MEAN CORPUSCULAR HEMOGLOBIN 28.2 pg (29.0-33.0); MEAN CORPUSCULAR HGB CONC 33.1 g/dl (32.0-37.0); MEAN CORPUSCULAR VOLUME 85.1 fl (82.0-101.0); MEAN PLATELET VOLUME 10.4 fl (7.4-10.4); MONOCYTE # 0.4 10^3/ul (0.3-0.9); MONOCYTES % 6.9 % (0.0-11.0); NEUTROPHIL # 2.2 10^3/ul (1.6-7.5); NEUTROPHILS % 42.5 % (39.0-77.0); PLATELET COUNT 234 10^3/UL (140-415); RED BLOOD COUNT 3.76 10^6/ul (4.20-5.40); RED CELL DISTRIBUTION WIDTH 14.1 % (11.5-14.5); WHITE BLOOD COUNT 5.1 10^3/ul (4.8-10.8)
[2017-02-27 06:53] LABS: POTASSIUM 3.2 mmol/L (3.5-5.1)
[2017-02-27 06:55] LABS: CREATININE 0.56 mg/dl (0.44-1.00)
[2017-02-27 06:56] LABS: CALCIUM 8.2 mg/dl (8.4-10.2)
[2017-02-27] MEDS: SOD CHLORIDE 0.9% 1,000 ML IV SCH ×2 (07:15→22:00)
[2017-02-27] MEDS: ACETAMINOPHEN 325 MG TAB PO PRN (08:12)
[2017-02-27] MEDS: PROMETHAZINE 25 MG TAB PO PRN ×3 (08:17→20:23)
--- NOTE | 2017-02-27 09:55 | PN ---
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 1. Syncope - likely sec to bradycardia. - Again, continue to monitor for now. 2. Sinus bradycardia - HR improved now (55-60 range presently). EKG did not show any signs of any heart block. Upon further questioning, apparently the patient had been started on Catapres or clonidine about a month and a half ago. This could be possible source of patient's bradycardia. The patient has also been taking fentanyl patch at home and Dilaudid. This could be less likely but also possibly be a cause of the patient's bradycardia. - holding those medications for now. - Follow up cardiology and pain management recommendations. - Continue to monitor heart rate very carefully. 3. History of spinal tumor. - Continue to monitor for now. - Consider PT consult as well, pain management. 4. History of seizures - possibly sec to prior Hx of neurocysticercosis -monitor, Continue Keppra. 5. History of anxiety and depression. Continue to monitor for now. 7. Chronic pain. Again, continue to follow up recommendations from the pain management team. On Fentanyl patch for now. 8. History of pulmonary aspergillosis. Monitor for now. 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 10. Gastrointestinal prophylaxis. PPI. 11. Deep venous thrombosis prophylaxis. Heparin subcutaneously. Critical care time spent on patient care today 40 minutes. Problems: Subjective 24 Hr Interval Summary Free Text/Dictation Pt more awake and alert, has some + cp however. Exam/Review of Systems Vital Signs Vitals Vital Signs Date Time Temp Pulse Resp B/P Pulse Ox O2 Delivery O2 Flow Rate FiO2 02/27/17 08:00 52 02/27/17 07:00 22 98/83 100 Room Air 02/27/17 04:00 98.3 02/27/17 02:24 21 02/25/17 23:00 2.0 Intake and Output 02/26/17 02/26/17 02/27/17 15:00 23:00 07:00 Intake Total 740 ml 860 ml 700 ml Output Total 300 ml 400 ml Balance 740 ml 560 ml 300 ml Exam GENERAL: The patient lying in bed, more alert HEENT: Pupils equal, round, react to light. Extraocular muscles intact. NECK: Supple, no thyromegaly. LUNGS: Clear to auscultation bilaterally. CARDIOVASCULAR: S1,S2, No rubs or gallops. ABDOMEN: Soft, nontender, nondistended. Normal bowel sounds. No rebound or guarding. MUSCULOSKELETAL: No lower extremity bilaterally. NEUROLOGIC: No focal deficits. Results Result Diagram: 02/27/17 0445 02/27/17 0444 Results 24 hrs Laboratory Tests Test 02/26/17 11:56 02/27/17 04:44 02/27/17 04:45 White Blood Count 6.1 5.1 Red Blood Count 4.04 L 3.76 L Hemoglobin 11.3 L 10.6 L Hematocrit 34.3 L 32.0 L Mean Corpuscular Volume 84.9 85.1 Mean Corpuscular Hemoglobin 28.0 L 28.2 L Mean Corpuscular Hemoglobin Concent 32.9 33.1 Red Cell Distribution Width 13.9 14.1 Platelet Count 280 234 Mean Platelet Volume 10.0 10.4 Neutrophils % 47.3 42.5 Lymphocytes % 45.3 48.2 Monocytes % 5.7 6.9 Eosinophils % 1.0 1.8 Basophils % 0.5 0.6 Nucleated Red Blood Cells % 0.0 0.0 Neutrophils # 2.9 2.2 Lymphocytes # 2.8 2.5 Monocytes # 0.4 0.4 Eosinophils # 0.1 0.1 Basophils # 0.0 0.0 Nucleated Red Blood Cells # 0.0 0.0 Sodium Level 136 140 Potassium Level 3.6 3.2 L Chloride Level 104 108 Carbon Dioxide Level 26 23 Anion Gap 10 12 Blood Urea Nitrogen 13 13 Creatinine 0.56 0.56 Glucose Level 99 74 Hemoglobin A1c 5.5 Calcium Level 8.8 8.2 L Phosphorus Level 3.6 Magnesium Level 1.7 Triglycerides Level 101 Cholesterol Level 150 LDL Cholesterol, Calculated 93 HDL Cholesterol 37 Cholesterol/HDL Ratio 4.0 Thyroid Stimulating Hormone (TSH) 2.090 Free Thyroxine 0.70 Free Triiodothyronine (T3) pg/mL 2.76 L Medications Medications Current Medications Acetaminophen (Tylenol Tab) 650 mg Q6H PRN PO PAIN LEVEL 1-3 OR FEVER Last administered on 02/27/17 08:12; Admin Dose 650 MG; Start 02/25/17 at 18:00 Docusate Sodium (Colace) 100 mg Q12H PRN PO CONSTIPATION; Start 02/25/17 at 18: 00 Magnesium Hydroxide (Milk Of Mag) 30 ml DAILY PRN PO CONSTIPATION; Start at 18:00 Sodium Biphosphate/ Sodium Phosphate (Fleet Enema) 133 ml DAILY PRN [place] CONSTIPATION; Start 02/25/17 at 18:00 Pantoprazole (Protonix Tab) 40 mg DAILY@06 PO Last administered on 02/27/17 06 :24; Admin Dose 40 MG; Start 02/26/17 at 06:00 Heparin Sodium (Porcine) 5000 unit 5,000 unit Q12 SC Last administered on 20:43; Admin Dose 5,000 UNIT; Start 02/25/17 at 21:00 Sodium Chloride (NS) 1,000 ml @ 100 mls/hr Q10H IV Last administered on 07:15; Admin Dose 100 MLS/HR; Start 02/25/17 at 17:56 Nitroglycerin (Nitroglycerin (Sl Tab) 0.4 Mg) 1 tab Q5M PRN SL ANGINA; Start at 18:00 Levetiracetam (Keppra) 500 mg BID PO Last administered on 02/26/17 20:33; Admin Dose 500 MG; Start 02/25/17 at 21:00 Promethazine HCl (Phenergan) 25 mg Q6H PRN PO NAUSEA AND/OR VOMITING Last administered on 02/27/17 08:17; Admin Dose 25 MG; Start 02/25/17 at 21:00 IV Flush (NS 10 ml) 10 ml PRN PRN IV IV PROTOCOL; Start 02/26/17 at 10:30 Fentanyl (Duragesic 50 Mcg/Hr Patch) 1 patch Q72H TRANSDERM Last administered on 02/26/17 12:37; Admin Dose 1 PATCH; Start 02/26/17 at 12:30 Diphenhydramine HCl (Benadryl) 25 mg Q6 PRN IV NAUSEA Last administered on 02/27 09:39; Admin Dose 25 MG; Start 02/26/17 at 20:00 Quetiapine Fumarate 100 mg 100 mg HS PO Last administered on 02/26/17 22:12; Admin Dose 100 MG; Start 02/26/17 at 21:30 Potassium Chloride (KCl 40 MEQ/250 ML NS) 250 ml @ 62.5 mls/hr ONCE ONCE IVPB ; Start 02/27/17 at 10:00; Stop 02/27/17 at 13:59 Procedures Procedures ECHO: Conclusions 1. Normal left ventricular systolic function. Normal left ventricular cavity size. Normal left ventricular wall thickness. Ejection fraction is visually estimated at 65 %. 2. Normal right ventricular size. Normal right ventricular systolic function. 3. The left atrium is normal in size. 4. The right atrium is normal in size. 5. Estimated peak PA systolic pressure 26 mmHg. There is mild tricuspid regurgitation. 6. There is mild pulmonic regurgitation. 7. Normal appearance and function of the mitral valve with trace physiologic regurgitation. 8. No hemodynamically significant aortic stenosis by doppler. Trace aortic valve regurgitation. 9. Normal pericardium with no significant pericardial effusion. BUNNY STORY February 27, 2017 09:55
[2017-02-27] MEDS ORDERED: POTASSIUM CHLORIDE 250 ML IVPB ONE (10:00)
[2017-02-27] MEDS: LEVETIRACETAM 500 MG TAB PO SCH ×2 (10:10→22:38)
[2017-02-27] MEDS: DOCUSATE SODIUM 100 MG CAP PO PRN (10:10)
[2017-02-27] MEDS: HEPARIN 5,000 UNIT/0.5 ML VIAL SC SCH ×2 (10:12→21:00)
[2017-02-27] MEDS ORDERED: DIPHENHYDRAMINE 50 MG INJ IV ONE (11:00)
--- NOTE | 2017-02-27 13:35 | CONS ---
Date/Time of Note Date/Time of Note DATE: 02/27/17 TIME: 13:33 Assessment/Plan Assessment/Plan Additional Assessment/Plan Sinus bradycardia-improved Hypotension-improved Preserved ejection fraction Chronic pain on narcotics Spinal pathology -Patient with improvement in heart rates on telemetry and blood pressure remains stable. Echocardiogram with preserved ejection fraction. No need for pacemaker at the current time. Consultation Date/Type/Reason Admit Date/Time February 25, 2017 at 14:49 Initial Consult Date Type of Consultation: cv 24 HR Interval Summary Free Text/Dictation Denies dizziness, shortness of breath, palpitations Exam/Review of Systems Vital Signs Vitals Vital Signs Date Time Temp Pulse Resp B/P Pulse Ox O2 Delivery O2 Flow Rate FiO2 02/27/17 11:00 77 23 108/72 96 Room Air 02/27/17 08:00 97.9 02/27/17 02:24 21 02/25/17 23:00 2.0 Intake and Output 02/26/17 02/26/17 02/27/17 15:00 23:00 07:00 Intake Total 740 ml 860 ml 700 ml Output Total 300 ml 400 ml Balance 740 ml 560 ml 300 ml Exam No apparent distress Constitutional: alert, oriented Head: normocephalic Respiratory: other (Coarse breath sounds bilaterally, no wheezing) Cardiovascular: other (S1-S2 heard), regular rate and rhythm Gastrointestinal: bowel sounds, non-tender, soft Extremities: other (No edema) Results Result Diagram: 02/27/17 0445 02/27/17 0444 Results 24 hrs Laboratory Tests Test 02/27/17 04:44 02/27/17 04:45 02/27/17 10:30 Sodium Level 140 Potassium Level 3.2 L Chloride Level 108 Carbon Dioxide Level 23 Anion Gap 12 Blood Urea Nitrogen 13 Creatinine 0.56 Glucose Level 74 Calcium Level 8.2 L White Blood Count 5.1 Red Blood Count 3.76 L Hemoglobin 10.6 L Hematocrit 32.0 L Mean Corpuscular Volume 85.1 Mean Corpuscular Hemoglobin 28.2 L Mean Corpuscular Hemoglobin Concent 33.1 Red Cell Distribution Width 14.1 Platelet Count 234 Mean Platelet Volume 10.4 Neutrophils % 42.5 Lymphocytes % 48.2 Monocytes % 6.9 Eosinophils % 1.8 Basophils % 0.6 Nucleated Red Blood Cells % 0.0 Neutrophils # 2.2 Lymphocytes # 2.5 Monocytes # 0.4 Eosinophils # 0.1 Basophils # 0.0 Nucleated Red Blood Cells # 0.0 Troponin I < 0.012 Medications Medications Current Medications Acetaminophen (Tylenol Tab) 650 mg Q6H PRN PO PAIN LEVEL 1-3 OR FEVER Last administered on 02/27/17 08:12; Admin Dose 650 MG; Start 02/25/17 at 18:00 Docusate Sodium (Colace) 100 mg Q12H PRN PO CONSTIPATION Last administered on 10:10; Admin Dose 100 MG; Start 02/25/17 at 18:00 Magnesium Hydroxide (Milk Of Mag) 30 ml DAILY PRN PO CONSTIPATION Last administered on 02/27/17 10:10; Admin Dose 30 ML; Start 02/25/17 at 18:00 Sodium Biphosphate/ Sodium Phosphate (Fleet Enema) 133 ml DAILY PRN [place] CONSTIPATION; Start 02/25/17 at 18:00 Pantoprazole (Protonix Tab) 40 mg DAILY@06 PO Last administered on 02/27/17 06 :24; Admin Dose 40 MG; Start 02/26/17 at 06:00 Heparin Sodium (Porcine) 5000 unit 5,000 unit Q12 SC Last administered on 10:12; Admin Dose 5,000 UNIT; Start 02/25/17 at 21:00 Sodium Chloride (NS) 1,000 ml @ 100 mls/hr Q10H IV Last administered on 07:15; Admin Dose 100 MLS/HR; Start 02/25/17 at 17:56 Nitroglycerin (Nitroglycerin (Sl Tab) 0.4 Mg) 1 tab Q5M PRN SL ANGINA; Start at 18:00 Levetiracetam (Keppra) 500 mg BID PO Last administered on 02/27/17 10:10; Admin Dose 500 MG; Start 02/25/17 at 21:00 Promethazine HCl (Phenergan) 25 mg Q6H PRN PO NAUSEA AND/OR VOMITING Last administered on 02/27/17 08:17; Admin Dose 25 MG; Start 02/25/17 at 21:00 IV Flush (NS 10 ml) 10 ml PRN PRN IV IV PROTOCOL; Start 02/26/17 at 10:30 Fentanyl (Duragesic 50 Mcg/Hr Patch) 1 patch Q72H TRANSDERM Last administered on 02/26/17 12:37; Admin Dose 1 PATCH; Start 02/26/17 at 12:30 Diphenhydramine HCl (Benadryl) 25 mg Q6 PRN IV NAUSEA Last administered on 02/27 09:39; Admin Dose 25 MG; Start 02/26/17 at 20:00 Quetiapine Fumarate 100 mg 100 mg HS PO Last administered on 02/26/17 22:12; Admin Dose 100 MG; Start 02/26/17 at 21:30 Potassium Chloride (KCl 40 MEQ/250 ML NS) 250 ml @ 62.5 mls/hr ONCE ONCE IVPB Last administered on 02/27/17 10:13; Admin Dose 62.5 MLS/HR; Start 02/27/17 at 10:00; Stop 02/27/17 at 13:59 Brayden Ramirez DO February 27, 2017 13:35
[2017-02-27] MEDS ORDERED: POTASSIUM CHLORIDE (SR) 20 MEQ TAB PO STA (16:46)
--- NOTE | 2017-02-27 17:39 | RADRPT ---
Vent Rate: 58 bpm RR Interval: 0 msec CA Interval: 154 msec QRS Duration: 86 msec QT Interval: 464 msec QTC Interval: 455 msec P-R-T [place]: 10 - 17 - 10 degrees Sinus bradycardia Low voltage QRS Cannot rule out Anterior infarct , age undetermined Abnormal ECG Electronically Signed By: Brayden Ramirez [id number]
[2017-02-27] MEDS: FENTAnyl PATCH 50 MCG/HR TRANSDERM SCH (20:00)
[2017-02-27] MEDS: QUETIAPINE 100 MG TAB PO SCH (22:39)
[2017-02-28] VITALS (11 sets, daily range): BP systolic 96–105; BP diastolic 54–64; PULSE 56–89; RESP 16–18
[2017-02-28] MEDS: DIPHENHYDRAMINE 50 MG INJ IV PRN ×4 (04:38→21:23)
[2017-02-28] MEDS: PANTOPRAZOLE (EC) 40 MG TAB PO SCH (06:01)
[2017-02-28] MEDS: SOD CHLORIDE 0.9% 1,000 ML IV SCH ×3 (06:01→22:42)
[2017-02-28 08:55] LABS: ADD SCAN DIFF NO
[2017-02-28 08:58] LABS: BASOPHILS % 0.7 % (0.0-2.0); EOSINOPHILS % 0.5 % (0.0-7.0); HEMATOCRIT 33.7 % (37.0-47.0); HEMOGLOBIN 11.4 g/dl (12.0-16.0); LYMPHOCYTES # 1.3 10^3/ul (0.8-2.9); LYMPHOCYTES % 21.7 % (15.0-51.0); MEAN CORPUSCULAR HEMOGLOBIN 28.1 pg (29.0-33.0); MEAN CORPUSCULAR HGB CONC 33.8 g/dl (32.0-37.0); MEAN PLATELET VOLUME 10.3 fl (7.4-10.4); MONOCYTE # 0.3 10^3/ul (0.3-0.9); MONOCYTES % 4.7 % (0.0-11.0); NEUTROPHIL # 4.3 10^3/ul (1.6-7.5); NEUTROPHILS % 72.2 % (39.0-77.0); PLATELET COUNT 276 10^3/UL (140-415); RED BLOOD COUNT 4.06 10^6/ul (4.20-5.40); RED CELL DISTRIBUTION WIDTH 13.9 % (11.5-14.5)
[2017-02-28] MEDS: LEVETIRACETAM 500 MG TAB PO SCH ×2 (08:59→21:12)
[2017-02-28] MEDS: HEPARIN 5,000 UNIT/0.5 ML VIAL SC SCH ×2 (09:01→21:18)
[2017-02-28 09:26] LABS: CALCIUM 8.9 mg/dl (8.4-10.2); CREATININE 0.57 mg/dl (0.44-1.00); POTASSIUM 3.7 mmol/L (3.5-5.1)
--- NOTE | 2017-02-28 10:14 | CONS ---
Date/Time of Note Date/Time of Note DATE: 02/28/17 TIME: 10:13 Assessment/Plan Assessment/Plan Additional Assessment/Plan Sinus bradycardia-improved Hypotension-improved Preserved ejection fraction Chronic pain on narcotics Spinal pathology -Patient with improvement in heart rates on telemetry and blood pressure remains stable. No need for pacemaker at the current time. DC planning Consultation Date/Type/Reason Admit Date/Time February 25, 2017 at 14:49 Type of Consultation: cv 24 HR Interval Summary Free Text/Dictation Denies dizziness, chest pain or palpitations Exam/Review of Systems Vital Signs Vitals Vital Signs Date Time Temp Pulse Resp B/P Pulse Ox O2 Delivery O2 Flow Rate FiO2 02/28/17 08:21 84 02/28/17 07:58 98.6 18 104/64 96 02/27/17 18:16 21 02/27/17 16:00 Room Air 02/25/17 23:00 2.0 Intake and Output 02/27/17 02/27/17 02/28/17 15:00 23:00 07:00 Intake Total 482.5 ml 1050 ml 660 ml Balance 482.5 ml 1050 ml 660 ml Exam No apparent distress Constitutional: alert, oriented Head: normocephalic Respiratory: other (Coarse breath sounds bilaterally, no wheezing) Cardiovascular: other (S1-S2 heard), regular rate and rhythm Gastrointestinal: bowel sounds, non-tender, soft Extremities: other (No edema) Results Result Diagram: 02/28/17 0756 02/28/17 0756 Results 24 hrs Laboratory Tests Test 02/27/17 10:30 02/28/17 07:56 Troponin I < 0.012 White Blood Count 6.0 Red Blood Count 4.06 L Hemoglobin 11.4 L Hematocrit 33.7 L Mean Corpuscular Volume 83.0 Mean Corpuscular Hemoglobin 28.1 L Mean Corpuscular Hemoglobin Concent 33.8 Red Cell Distribution Width 13.9 Platelet Count 276 Mean Platelet Volume 10.3 Neutrophils % 72.2 Lymphocytes % 21.7 Monocytes % 4.7 Eosinophils % 0.5 Basophils % 0.7 Nucleated Red Blood Cells % 0.0 Neutrophils # 4.3 Lymphocytes # 1.3 Monocytes # 0.3 Eosinophils # 0.0 Basophils # 0.0 Nucleated Red Blood Cells # 0.0 Sodium Level 138 Potassium Level 3.7 Chloride Level 109 Carbon Dioxide Level 20 L Anion Gap 13 Blood Urea Nitrogen 6 L Creatinine 0.57 Glucose Level 81 Calcium Level 8.9 Medications Medications Current Medications Acetaminophen (Tylenol Tab) 650 mg Q6H PRN PO PAIN LEVEL 1-3 OR FEVER Last administered on 02/27/17 08:12; Admin Dose 650 MG; Start 02/25/17 at 18:00 Docusate Sodium (Colace) 100 mg Q12H PRN PO CONSTIPATION Last administered on 10:10; Admin Dose 100 MG; Start 02/25/17 at 18:00 Magnesium Hydroxide (Milk Of Mag) 30 ml DAILY PRN PO CONSTIPATION Last administered on 02/27/17 10:10; Admin Dose 30 ML; Start 02/25/17 at 18:00 Sodium Biphosphate/ Sodium Phosphate (Fleet Enema) 133 ml DAILY PRN [place] CONSTIPATION; Start 02/25/17 at 18:00 Pantoprazole (Protonix Tab) 40 mg DAILY@06 PO Last administered on 02/28/17 06 :01; Admin Dose 40 MG; Start 02/26/17 at 06:00 Heparin Sodium (Porcine) 5000 unit 5,000 unit Q12 SC Last administered on 09:01; Admin Dose 5,000 UNIT; Start 02/25/17 at 21:00 Sodium Chloride (NS) 1,000 ml @ 100 mls/hr Q10H IV Last administered on 06:01; Admin Dose 100 MLS/HR; Start 02/25/17 at 17:56 Nitroglycerin (Nitroglycerin (Sl Tab) 0.4 Mg) 1 tab Q5M PRN SL ANGINA; Start at 18:00 Levetiracetam (Keppra) 500 mg BID PO Last administered on 02/28/17 08:59; Admin Dose 500 MG; Start 02/25/17 at 21:00 IV Flush (NS 10 ml) 10 ml PRN PRN IV IV PROTOCOL; Start 02/26/17 at 10:30 Diphenhydramine HCl (Benadryl) 25 mg Q6 PRN IV NAUSEA Last administered on 02/28 08:53; Admin Dose 25 MG; Start 02/26/17 at 20:00 Quetiapine Fumarate (Seroquel) 100 mg HS PO Last administered on 02/27/17 22: 39; Admin Dose 100 MG; Start 02/26/17 at 21:30 Fentanyl (Duragesic 50 Mcg/Hr Patch) 1 patch Q72H TRANSDERM Last administered on 02/27/17 20:00; Admin Dose 1 PATCH; Start 02/27/17 at 19:00 Promethazine HCl (Phenergan) 25 mg Q6H PRN PO NAUSEA AND/OR VOMITING Last administered on 02/27/17 20:23; Admin Dose 25 MG; Start 02/27/17 at 19:30 Brayden Ramirez DO February 28, 2017 10:14
[2017-02-28] MEDS: PROMETHAZINE 25 MG TAB PO PRN ×2 (10:46→17:55)
--- NOTE | 2017-02-28 15:31 | PN ---
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 1. Syncope - likely sec to bradycardia. - Again, continue to monitor for now. 2. Sinus bradycardia - HR improved now (65-70 range presently). EKG did not show any signs of any heart block. Upon further questioning, apparently the patient had been started on Catapres or clonidine about a month and a half ago. This could be possible source of patient's bradycardia. The patient has also been taking fentanyl patch at home and Dilaudid. This could be less likely but also possibly be a cause of the patient's bradycardia. - holding those medications for now. - Follow up cardiology and pain management recommendations. - Continue to monitor heart rate very carefully. 3. History of spinal tumor. - Continue to monitor for now. - Consider PT consult as well, pain management. 4. History of seizures - possibly sec to prior Hx of neurocysticercosis -monitor, Continue Keppra. 5. History of anxiety and depression. Continue to monitor for now. 7. Chronic pain. Again, continue to follow up recommendations from the pain management team. On Fentanyl patch for now. 8. History of pulmonary aspergillosis. Monitor for now. 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 10. Gastrointestinal prophylaxis. PPI. 11. Deep venous thrombosis prophylaxis. Heparin subcutaneously. Critical care time spent on patient care today 40 minutes. Problems: Subjective 24 Hr Interval Summary Free Text/Dictation No acute events overnight. Exam/Review of Systems Vital Signs Vitals Vital Signs Date Time Temp Pulse Resp B/P Pulse Ox O2 Delivery O2 Flow Rate FiO2 02/28/17 12:06 73 02/28/17 11:20 98.6 18 96/59 97 02/27/17 18:16 21 02/27/17 16:00 Room Air 02/25/17 23:00 2.0 Intake and Output 02/27/17 02/27/17 02/28/17 14:59 22:59 06:59 Intake Total 482.5 ml 1050 ml 660 ml Balance 482.5 ml 1050 ml 660 ml Exam GENERAL: The patient lying in bed, more alert HEENT: Pupils equal, round, react to light. Extraocular muscles intact. NECK: Supple, no thyromegaly. LUNGS: Clear to auscultation bilaterally. CARDIOVASCULAR: S1,S2, No rubs or gallops. ABDOMEN: Soft, nontender, nondistended. Normal bowel sounds. No rebound or guarding. MUSCULOSKELETAL: No lower extremity bilaterally. NEUROLOGIC: No focal deficits. Results Result Diagram: 02/28/17 0756 02/28/17 0756 Results 24 hrs Laboratory Tests Test 02/28/17 07:56 White Blood Count 6.0 Red Blood Count 4.06 L Hemoglobin 11.4 L Hematocrit 33.7 L Mean Corpuscular Volume 83.0 Mean Corpuscular Hemoglobin 28.1 L Mean Corpuscular Hemoglobin Concent 33.8 Red Cell Distribution Width 13.9 Platelet Count 276 Mean Platelet Volume 10.3 Neutrophils % 72.2 Lymphocytes % 21.7 Monocytes % 4.7 Eosinophils % 0.5 Basophils % 0.7 Nucleated Red Blood Cells % 0.0 Neutrophils # 4.3 Lymphocytes # 1.3 Monocytes # 0.3 Eosinophils # 0.0 Basophils # 0.0 Nucleated Red Blood Cells # 0.0 Sodium Level 138 Potassium Level 3.7 Chloride Level 109 Carbon Dioxide Level 20 L Anion Gap 13 Blood Urea Nitrogen 6 L Creatinine 0.57 Glucose Level 81 Calcium Level 8.9 Medications Medications Current Medications Acetaminophen (Tylenol Tab) 650 mg Q6H PRN PO PAIN LEVEL 1-3 OR FEVER Last administered on 02/27/17 08:12; Admin Dose 650 MG; Start 02/25/17 at 18:00 Docusate Sodium (Colace) 100 mg Q12H PRN PO CONSTIPATION Last administered on 10:10; Admin Dose 100 MG; Start 02/25/17 at 18:00 Magnesium Hydroxide (Milk Of Mag) 30 ml DAILY PRN PO CONSTIPATION Last administered on 02/27/17 10:10; Admin Dose 30 ML; Start 02/25/17 at 18:00 Sodium Biphosphate/ Sodium Phosphate (Fleet Enema) 133 ml DAILY PRN [place] CONSTIPATION; Start 02/25/17 at 18:00 Pantoprazole (Protonix Tab) 40 mg DAILY@06 PO Last administered on 02/28/17 06 :01; Admin Dose 40 MG; Start 02/26/17 at 06:00 Heparin Sodium (Porcine) 5000 unit 5,000 unit Q12 SC Last administered on 09:01; Admin Dose 5,000 UNIT; Start 02/25/17 at 21:00 Sodium Chloride (NS) 1,000 ml @ 100 mls/hr Q10H IV Last administered on 10:49; Admin Dose 100 MLS/HR; Start 02/25/17 at 17:56 Nitroglycerin (Nitroglycerin (Sl Tab) 0.4 Mg) 1 tab Q5M PRN SL ANGINA; Start at 18:00 Levetiracetam (Keppra) 500 mg BID PO Last administered on 02/28/17 08:59; Admin Dose 500 MG; Start 02/25/17 at 21:00 IV Flush (NS 10 ml) 10 ml PRN PRN IV IV PROTOCOL; Start 02/26/17 at 10:30 Diphenhydramine HCl (Benadryl) 25 mg Q6 PRN IV NAUSEA Last administered on 02/28 14:55; Admin Dose 25 MG; Start 02/26/17 at 20:00 Quetiapine Fumarate (Seroquel) 100 mg HS PO Last administered on 02/27/17 22: 39; Admin Dose 100 MG; Start 02/26/17 at 21:30 Fentanyl (Duragesic 50 Mcg/Hr Patch) 1 patch Q72H TRANSDERM Last administered on 02/27/17 20:00; Admin Dose 1 PATCH; Start 02/27/17 at 19:00 Promethazine HCl (Phenergan) 25 mg Q6H PRN PO NAUSEA AND/OR VOMITING Last administered on 02/28/17 10:46; Admin Dose 25 MG; Start 02/27/17 at 19:30 BUNNY STORY February 28, 2017 15:31
[2017-02-28] MEDS: QUETIAPINE 100 MG TAB PO SCH (21:12)
[2017-03-01] VITALS (12 sets, daily range): BP systolic 88–119; BP diastolic 55–74; PULSE 62–84; RESP 16–18
[2017-03-01] MEDS: DIPHENHYDRAMINE 50 MG INJ IV PRN ×4 (03:18→21:03)
[2017-03-01] MEDS: PANTOPRAZOLE (EC) 40 MG TAB PO SCH (05:45)
[2017-03-01 07:45] LABS: ADD SCAN DIFF NO
[2017-03-01 07:53] LABS: BASOPHILS % 0.9 % (0.0-2.0); EOSINOPHILS # 0.2 10^3/ul (0.0-0.5); EOSINOPHILS % 3.2 % (0.0-7.0); HEMATOCRIT 32.2 % (37.0-47.0); HEMOGLOBIN 10.7 g/dl (12.0-16.0); LYMPHOCYTES # 1.8 10^3/ul (0.8-2.9); LYMPHOCYTES % 39.1 % (15.0-51.0); MEAN CORPUSCULAR HEMOGLOBIN 28.1 pg (29.0-33.0); MEAN CORPUSCULAR HGB CONC 33.2 g/dl (32.0-37.0); MEAN CORPUSCULAR VOLUME 84.5 fl (82.0-101.0); MEAN PLATELET VOLUME 10.2 fl (7.4-10.4); MONOCYTE # 0.3 10^3/ul (0.3-0.9); MONOCYTES % 5.6 % (0.0-11.0); NEUTROPHIL # 2.4 10^3/ul (1.6-7.5); PLATELET COUNT 264 10^3/UL (140-415); RED BLOOD COUNT 3.81 10^6/ul (4.20-5.40); RED CELL DISTRIBUTION WIDTH 14.3 % (11.5-14.5); WHITE BLOOD COUNT 4.7 10^3/ul (4.8-10.8)
[2017-03-01 08:09] LABS: POTASSIUM 3.7 mmol/L (3.5-5.1)
[2017-03-01 08:12] LABS: CALCIUM 8.7 mg/dl (8.4-10.2); CREATININE 0.58 mg/dl (0.44-1.00)
[2017-03-01] MEDS: LEVETIRACETAM 500 MG TAB PO SCH ×2 (09:10→20:34)
[2017-03-01] MEDS: HEPARIN 5,000 UNIT/0.5 ML VIAL SC SCH ×2 (09:15→20:39)
[2017-03-01] MEDS: SOD CHLORIDE 0.9% 1,000 ML IV SCH ×3 (12:15→21:03)
--- NOTE | 2017-03-01 13:10 | PDOCDIS ---
Discharge Instructions CONDITION Patient Condition: Stable HOME CARE INSTRUCTIONS: Special Diet: regular diet ACTIVITY: Activity Restrictions: Slowly Increase Activity FOLLOW UP/APPOINTMENTS Appointments Please take your medications as prescribed, see your doctor in the clinic in 1 week. BUNNY STORY March 01, 2017 13:10
[2017-03-01] MEDS ORDERED: HYDR-902 PO (13:14)
--- NOTE | 2017-03-01 13:56 | DS ---
DATE OF ADMISSION: 02/25/2017 DATE OF DISCHARGE: 03/01/2017 HOSPITAL COURSE: A 46-year-old female originally admitted on 02/26/2017, being discharged home afte r being seen by physical therapy on 03/01/2017. The patient came in with altered level of conscious ness. She was admitted initially to the intensive care unit because she had sinus bradycardia. Hea rt rate was in the 30 to 40 range. It was determined that patient had recently been started on clon idine as an outpatient, and also she was on multiple pain medicines for chronic pain syndrome as wel l. So, most of her pain medicines were held and her clonidine was held. She was seen by cardiology team who recommended medical management at this time. There was no need for pacemaker at this curr ent time as after about 48 hours, her heart rate did come back to normal range. EKG did not show an y signs of any significant heart blocks or other acute EKG changes. She also was found with hypoten aspen on admission which improved after IV fluids were given. She also had an echocardiogram perform ed that showed ejection fraction of 65%, normal left ventricular systolic function, normal left vent ricular cavity size, normal left ventricular wall thickness. The valves appeared normal. The patie nt became more alert. She was supposed to be seen by physical therapy on the day of discharge. She was also seen by pain management doctor who recommended cautiously giving her a fentanyl patch, but stopping her other pain medications and on discharge, she will only be on short-acting opioid medic ations and not long-acting medicines. The patient is ambulating, tolerating p.o. diet and after ana ng seen by PT today and if her vital signs continue to remain stable, she will be discharged today i n improved condition. DISCHARGE MEDICATIONS: She will be sent with: 1. [place] 10/325 one tab p.o. q.6h. p.r.n. 2. Diazepam 10 mg at bedtime. 3. Gabapentin 300 mg b.i.d. 4. Keppra 500 mg b.i.d. 5. Seroquel 400 mg at bedtime. FOLLOWUP: She will need to follow up with primary care doctor in clinic in the next 1 to 2 weeks. FINAL DIAGNOSES: 1. Sinus bradycardia, likely secondary to a combination of clonidine use and pain medicine use as a n outpatient. Now heart rate improved, in normal sinus rhythm. 2. Hypotension, resolved. 3. History of spinal tumor in the past with multiple surgeries in the past, leading to chronic pain syndrome, now on pain management. 4. History of seizures. Continue Keppra. 5. History of anxiety and depression. 6. History of pulmonary aspergillosis in the past. 7. Neurocysticercosis, stable. Time spent discharging the patient 40 minutes. Dictated By: BUNNY BISHOP Conf#: [id number] DID#: [id number]
[2017-03-01] MEDS: QUETIAPINE 100 MG TAB PO SCH (20:35)
[2017-03-01] MEDS: PROMETHAZINE 25 MG TAB PO PRN (22:47)
[2017-03-02] VITALS (12 sets, daily range): BP systolic 92–111; BP diastolic 53–79; PULSE 54–83; RESP 18–20
[2017-03-02] MEDS: DIPHENHYDRAMINE 50 MG INJ IV PRN ×4 (02:32→20:45)
[2017-03-02] MEDS: PANTOPRAZOLE (EC) 40 MG TAB PO SCH (06:01)
[2017-03-02 07:53] LABS: ADD SCAN DIFF NO
[2017-03-02] MEDS: SOD CHLORIDE 0.9% 1,000 ML IV SCH ×4 (07:56→20:05)
[2017-03-02 08:17] LABS: BASOPHILS % 0.7 % (0.0-2.0); EOSINOPHILS # 0.3 10^3/ul (0.0-0.5); EOSINOPHILS % 4.3 % (0.0-7.0); HEMATOCRIT 32.1 % (37.0-47.0); HEMOGLOBIN 10.6 g/dl (12.0-16.0); LYMPHOCYTES # 2.1 10^3/ul (0.8-2.9); MEAN CORPUSCULAR VOLUME 84.9 fl (82.0-101.0); MEAN PLATELET VOLUME 10.4 fl (7.4-10.4); MONOCYTE # 0.3 10^3/ul (0.3-0.9); MONOCYTES % 5.9 % (0.0-11.0); NEUTROPHILS % 52.1 % (39.0-77.0); PLATELET COUNT 255 10^3/UL (140-415); RED BLOOD COUNT 3.78 10^6/ul (4.20-5.40); RED CELL DISTRIBUTION WIDTH 14.3 % (11.5-14.5); WHITE BLOOD COUNT 5.8 10^3/ul (4.8-10.8)
[2017-03-02] MEDS: LEVETIRACETAM 500 MG TAB PO SCH ×2 (08:52→20:04)
[2017-03-02] MEDS: HEPARIN 5,000 UNIT/0.5 ML VIAL SC SCH ×2 (08:53→20:07)
[2017-03-02 09:55] LABS: POTASSIUM 3.7 mmol/L (3.5-5.1)
[2017-03-02 09:57] LABS: CREATININE 0.59 mg/dl (0.44-1.00)
[2017-03-02 09:58] LABS: CALCIUM 9.1 mg/dl (8.4-10.2)
--- NOTE | 2017-03-02 10:14 | PN ---
Date/Time of Note Date/Time of Note DATE: 03/02/17 TIME: 10:13 Assessment/Plan VTE Prophylaxis VTE Prophylaxis Intervention: SCD's Lines/Catheters IV Catheter Type (from Nrsg): PICC Line Central line still needed: No Urinary Cath still in place: No Assessment/Plan Assessment/Plan Sinus bradycardia-improved Hypotension-improved Preserved ejection fraction Chronic pain on narcotics Spinal pathology -Patient with improvement in heart rates on telemetry and blood pressure remains stable. No need for pacemaker at the current time. DC planning Subjective 24 Hr Interval Summary Free Text/Dictation The patient with no change Exam/Review of Systems Vital Signs Vitals Vital Signs Date Time Temp Pulse Resp B/P Pulse Ox O2 Delivery O2 Flow Rate FiO2 03/02/17 07:54 98.3 95 18 111/79 100 02/28/17 16:00 Room Air 02/27/17 18:16 21 Intake and Output 03/01/17 03/01/17 03/02/17 15:00 23:00 07:00 Intake Total 1955 ml 1150 ml Balance 1955 ml 1150 ml Results Result Diagram: 03/02/17 0628 03/02/17 0628 Results 24 hrs Laboratory Tests Test 03/02/17 06:28 White Blood Count 5.8 # Red Blood Count 3.78 L Hemoglobin 10.6 L Hematocrit 32.1 L Mean Corpuscular Volume 84.9 Mean Corpuscular Hemoglobin 28.0 L Mean Corpuscular Hemoglobin Concent 33.0 Red Cell Distribution Width 14.3 Platelet Count 255 Mean Platelet Volume 10.4 Neutrophils % 52.1 Lymphocytes % 37.0 Monocytes % 5.9 Eosinophils % 4.3 Basophils % 0.7 Nucleated Red Blood Cells % 0.0 Neutrophils # 3.0 Lymphocytes # 2.1 Monocytes # 0.3 Eosinophils # 0.3 Basophils # 0.0 Nucleated Red Blood Cells # 0.0 Sodium Level 143 Potassium Level 3.7 Chloride Level 114 H Carbon Dioxide Level 25 Anion Gap 8 # Blood Urea Nitrogen 4 L Creatinine 0.59 Glucose Level 90 Calcium Level 9.1 Medications Medications Current Medications Acetaminophen (Tylenol Tab) 650 mg Q6H PRN PO PAIN LEVEL 1-3 OR FEVER Last administered on 02/27/17t 08:12; Admin Dose 650 MG; Start 02/25/17 at 18:00 Docusate Sodium (Colace) 100 mg Q12H PRN PO CONSTIPATION Last administered on 10:10; Admin Dose 100 MG; Start 02/25/17 at 18:00 Magnesium Hydroxide (Milk Of Mag) 30 ml DAILY PRN PO CONSTIPATION Last administered on 02/27/17 10:10; Admin Dose 30 ML; Start 02/25/17 at 18:00 Sodium Biphosphate/ Sodium Phosphate (Fleet Enema) 133 ml DAILY PRN [place] CONSTIPATION; Start 02/25/17 at 18:00 Pantoprazole (Protonix Tab) 40 mg DAILY@06 PO Last administered on 03/02/17 06 :01; Admin Dose 40 MG; Start 02/26/17 at 06:00 Heparin Sodium (Porcine) 5000 unit 5,000 unit Q12 SC Last administered on 08:53; Admin Dose 5,000 UNIT; Start 02/25/17 at 21:00 Sodium Chloride (NS) 1,000 ml @ 100 mls/hr Q10H IV Last administered on 09:35; Admin Dose 100 MLS/HR; Start 02/25/17 at 17:56 Nitroglycerin (Nitroglycerin (Sl Tab) 0.4 Mg) 1 tab Q5M PRN SL ANGINA; Start at 18:00 Levetiracetam (Keppra) 500 mg BID PO Last administered on 03/02/17 08:52; Admin Dose 500 MG; Start 02/25/17 at 21:00 IV Flush (NS 10 ml) 10 ml PRN PRN IV IV PROTOCOL; Start 02/26/17 at 10:30 Diphenhydramine HCl (Benadryl) 25 mg Q6 PRN IV NAUSEA Last administered on 03/02 08:53; Admin Dose 25 MG; Start 02/26/17 at 20:00 Quetiapine Fumarate (Seroquel) 100 mg HS PO Last administered on 03/01/17 20: 35; Admin Dose 100 MG; Start 02/26/17 at 21:30 Fentanyl (Duragesic 50 Mcg/Hr Patch) 1 patch Q72H TRANSDERM Last administered on 02/27/17 20:00; Admin Dose 1 PATCH; Start 02/27/17 at 19:00 Promethazine HCl (Phenergan) 25 mg Q6H PRN PO NAUSEA AND/OR VOMITING Last administered on 03/01/17t 22:47; Admin Dose 25 MG; Start 02/27/17 at 19:30 KEISHA BOONE MD March 02, 2017 10:14
[2017-03-02] MEDS: PROMETHAZINE 25 MG TAB PO PRN (11:36)
[2017-03-02] MEDS: ACETAMINOPHEN 325 MG TAB PO PRN (12:59)
--- NOTE | 2017-03-02 13:13 | DS ---
Date/Time of Note Date/Time of Note DATE: 03/02/17 TIME: 13:12 Discharge Summary Admission/Discharge Info Admit Date/Time February 25, 2017 at 14:49 Discharge Date/Time Final Diagnosis FINAL DIAGNOSES: 1. Sinus bradycardia, likely secondary to a combination of clonidine use and pain medicine use as an outpatient. Now heart rate improved, in normal sinus rhythm. 2. Hypotension, resolved. 3. History of spinal tumor in the past with multiple surgeries in the past, leading to chronic pain syndrome, now on pain management. 4. History of seizures. Continue Keppra. 5. History of anxiety and depression. 6. History of pulmonary aspergillosis in the past. 7. Neurocysticercosis, stable. Time spent discharging the patient 40 minutes. Hospital Course DATE OF ADMISSION: 02/25/2017 DATE OF DISCHARGE: 03/02/2017 HOSPITAL COURSE: A 46-year-old female originally admitted on 02/26/2017, being discharged home after being seen by physical therapy on 03/02/2017. The patient came in with altered level of consciousness. She was admitted initially to the intensive care unit because she had sinus bradycardia. Heart rate was in the 30 to 40 range. It was determined that patient had recently been started on clonidine as an outpatient, and also she was on multiple pain medicines for chronic pain syndrome as well. So, most of her pain medicines were held and her clonidine was held. She was seen by cardiology team who recommended medical management at this time. There was no need for pacemaker at this current time as after about 48 hours, her heart rate did come back to normal range. EKG did not show any signs of any significant heart blocks or other acute EKG changes. She also was found with hypotension on admission which improved after IV fluids were given. She also had an echocardiogram performed that showed ejection fraction of 65%, normal left ventricular systolic function, normal left ventricular cavity size, normal left ventricular wall thickness. The valves appeared normal. The patient became more alert. She was supposed to be seen by physical therapy on the day of discharge. She was also seen by pain management doctor who recommended cautiously giving her a fentanyl patch, but stopping her other pain medications and on discharge, she will only be on short-acting opioid medications and not long-acting medicines. The patient is ambulating with assistance from PT, tolerating p.o. diet and she will be discharged today to SNF with [facility] in improved condition. Discharge Med List - see Med Rec sheet Home Meds Active Scripts Hydrocodone/Acetaminophen ([place]ade 10-325 Tablet) 1 Each Tablet, 1 EACH PO Q6 for PAIN LEVEL 7-10 for 30 Days, TAB Prov:BUNNY STORY 03/01/17 Reported Medications Levetiracetam* (Keppra*) 500 Mg Tablet, 500 MG PO BID, TAB 02/25/17 Gabapentin* (Gabapentin*) 300 Mg Capsule, 300 MG PO BID, CAP 01/06/15 Diazepam* (Diazepam*) 10 Mg Tablet, 10 MG PO QHS, TAB 01/06/15 Quetiapine Fumarate* (Seroquel*) 400 Mg Tablet, 400 MG PO HS, TAB 01/06/15 Discontinued Reported Medications Clonidine Hcl* (Clonidine Hcl*) 0.1 Mg Tab, 0.1 MG PO DAILY, TAB 02/25/17 Fentanyl Patch* (Duragesic Patch*) 75 Mcg/Hr Transdermal Patch, 50 PATCH TD Q72H , PATCH 02/25/17 Diazepam* (Diazepam*) 10 Mg Tablet, 10 MG PO BID Y for ANXIETY, TAB 01/06/15 Primary Care Provider Brayden Simms MD Pending Labs Laboratory Tests Test 03/02/17 06:28 White Blood Count 5.810^3/ul (4.8-10.8) Red Blood Count 3.7810^6/ul (4.20-5.40) Hemoglobin 10.6g/dl (12.0-16.0) Hematocrit 32.1% (37.0-47.0) Mean Corpuscular Volume 84.9fl (82.0-101.0) Mean Corpuscular Hemoglobin 28.0pg (29.0-33.0) Mean Corpuscular Hemoglobin Concent 33.0g/dl (32.0-37.0) Red Cell Distribution Width 14.3% (11.5-14.5) Platelet Count 22865^3/UL (140-415) Mean Platelet Volume 10.4fl (7.4-10.4) Neutrophils % 52.1% (39.0-77.0) Lymphocytes % 37.0% (15.0-51.0) Monocytes % 5.9% (0.0-11.0) Eosinophils % 4.3% (0.0-7.0) Basophils % 0.7% (0.0-2.0) Nucleated Red Blood Cells % 0.0/100WBC (0.0-0.0) Neutrophils # 3.010^3/ul (1.6-7.5) Lymphocytes # 2.110^3/ul (0.8-2.9) Monocytes # 0.310^3/ul (0.3-0.9) Eosinophils # 0.310^3/ul (0.0-0.5) Basophils # 0.010^3/ul (0.0-0.1) Nucleated Red Blood Cells # 0.010^3/ul (0.0-0.0) Sodium Level 143mmol/L (135-144) Potassium Level 3.7mmol/L (3.5-5.1) Chloride Level 114mmol/L (97-110) Carbon Dioxide Level 25mmol/L (21-31) Anion Gap 8 (8-16) Blood Urea Nitrogen 4mg/dl (7-20) Creatinine 0.59mg/dl (0.44-1.00) Glucose Level 90mg/dl (70-220) Calcium Level 9.1mg/dl (8.4-10.2) BUNNY STORY March 02, 2017 13:13
[2017-03-02] MEDS: QUETIAPINE 100 MG TAB PO SCH (20:04)
[2017-03-02] MEDS: FENTAnyl PATCH 50 MCG/HR TRANSDERM SCH (20:14)
[2017-03-03] VITALS (13 sets, daily range): BP systolic 98–133; BP diastolic 62–78; PULSE 58–85; RESP 18–20
[2017-03-03] MEDS: SOD CHLORIDE 0.9% 1,000 ML IV SCH ×3 (03:56→18:11)
[2017-03-03] MEDS: DIPHENHYDRAMINE 50 MG INJ IV PRN ×4 (04:03→20:53)
[2017-03-03] MEDS: PANTOPRAZOLE (EC) 40 MG TAB PO SCH (05:58)
[2017-03-03 07:01] LABS: ADD SCAN DIFF NO
[2017-03-03 07:11] LABS: BASOPHIL # 0.1 10^3/ul (0.0-0.1); EOSINOPHILS # 0.3 10^3/ul (0.0-0.5); EOSINOPHILS % 5.2 % (0.0-7.0); HEMATOCRIT 32.2 % (37.0-47.0); HEMOGLOBIN 10.5 g/dl (12.0-16.0); LYMPHOCYTES % 40.8 % (15.0-51.0); MEAN CORPUSCULAR HEMOGLOBIN 28.1 pg (29.0-33.0); MEAN CORPUSCULAR HGB CONC 32.6 g/dl (32.0-37.0); MEAN CORPUSCULAR VOLUME 86.1 fl (82.0-101.0); MEAN PLATELET VOLUME 10.7 fl (7.4-10.4); MONOCYTE # 0.3 10^3/ul (0.3-0.9); MONOCYTES % 6.4 % (0.0-11.0); NEUTROPHIL # 2.3 10^3/ul (1.6-7.5); NEUTROPHILS % 46.4 % (39.0-77.0); PLATELET COUNT 243 10^3/UL (140-415); RED BLOOD COUNT 3.74 10^6/ul (4.20-5.40); RED CELL DISTRIBUTION WIDTH 14.9 % (11.5-14.5)
[2017-03-03 07:38] LABS: CALCIUM 8.9 mg/dl (8.4-10.2); CREATININE 0.6 mg/dl (0.44-1.00); POTASSIUM 3.8 mmol/L (3.5-5.1)
[2017-03-03] MEDS: LEVETIRACETAM 500 MG TAB PO SCH ×2 (08:35→20:47)
[2017-03-03] MEDS: HEPARIN 5,000 UNIT/0.5 ML VIAL SC SCH ×2 (08:36→20:50)
--- NOTE | 2017-03-03 14:36 | PN ---
Date/Time of Note Date/Time of Note DATE: 03/03/17 TIME: 14:27 Assessment/Plan VTE Prophylaxis VTE Prophylaxis Intervention: heparin Lines/Catheters IV Catheter Type (from Nrsg): PICC Line Central line still needed: Yes Urinary Cath still in place: No Assessment/Plan Assessment/Plan 1. Sinus bradycardia, likely secondary to a combination of clonidine use and pain medicine use as an outpatient. Now heart rate improved, in normal sinus rhythm. 2. Hypotension, resolved. 3. History of spinal tumor in the past with multiple surgeries in the past, leading to chronic pain syndrome, now on pain management. 4. Seizure disorder. stable, Continue Keppra. 5. Anxiety and depression, stable, on seroqual 6. History of pulmonary aspergillosis in the past. 7. Neurocysticercosis, stable. 8. Mechanical fall with right shoulder pain, X-ray 9. DVT prophylaxis: heparin Subjective 24 Hr Interval Summary Free Text/Dictation no dizziness. fell on right shoulder yesterday due to slippery floor with pain on right shoulder, no difficulty in moving hand and fingers. pain only at right shoulder. Exam/Review of Systems Vital Signs Vitals Vital Signs Date Time Temp Pulse Resp B/P Pulse Ox O2 Delivery O2 Flow Rate FiO2 03/03/17 12:10 73 03/03/17 11:38 97.4 20 98/62 98 02/28/17 16:00 Room Air 02/27/17 18:16 21 Intake and Output 03/02/17 03/02/17 03/03/17 15:00 23:00 07:00 Intake Total 950 ml 1350 ml Balance 950 ml 1350 ml Exam Constitutional: alert, oriented, well developed Head: atraumatic, normocephalic Eyes: EOMI, PERRL, nl conjunctiva, nl lids, nl sclera ENMT: nl external ears & nose, nl lips & teeth, nl nasal mucosa & septum Neck: non-tender, supple Respiratory: clear to auscultation, normal air movement, No congested cough, No crackles/rales, No diminished breath sounds, No intercostal retraction, No labored breathing, No other, No respirations, No tactile fremitus, No wheezing Cardiovascular: nl pulses, regular rate and rhythm, No S3, No S4, No bruits, No diastolic murmur, No edema, No gallop, No irregular rhythm, No jugular venous distention (JVD), No murmurs/extra sounds, No other, No rub, No systolic murmur Gastrointestinal: nl liver, spleen, non-tender, soft, No ascites, No bowel sounds, No distended, No firm, No hepatomegaly, No mass , No other, No rebound or guarding, No splenomegaly, No surgical scars, No tender Musculoskeletal: nl extremities to inspection Extremities: normal pulses, other (right shoulder pain limits her movement on right shoulder but no skin lesions, no linitation on right hand, fingers, or right elbow), No calf tenderness, No clubbing, No cyanosis, No edema, No palpable cord, No pitting pedal edema Neurological: SASH FINISHER II-XII intact, nl mental status, nl speech, nl strength Skin: nl turgor Lymph: nl lymph nodes Results Result Diagram: 03/03/1760403/03/17 06 Results 24 hrs Laboratory Tests Test 03/03/17 06:05 White Blood Count 5.0 Red Blood Count 3.74 L Hemoglobin 10.5 L Hematocrit 32.2 L Mean Corpuscular Volume 86.1 Mean Corpuscular Hemoglobin 28.1 L Mean Corpuscular Hemoglobin Concent 32.6 Red Cell Distribution Width 14.9 H Platelet Count 243 Mean Platelet Volume 10.7 H Neutrophils % 46.4 Lymphocytes % 40.8 Monocytes % 6.4 Eosinophils % 5.2 Basophils % 1.0 Nucleated Red Blood Cells % 0.0 Neutrophils # 2.3 Lymphocytes # 2.0 Monocytes # 0.3 Eosinophils # 0.3 Basophils # 0.1 Nucleated Red Blood Cells # 0.0 Sodium Level 145 H Potassium Level 3.8 Chloride Level 110 Carbon Dioxide Level 23 Anion Gap 16 # Blood Urea Nitrogen 6 L Creatinine 0.60 Glucose Level 82 Calcium Level 8.9 Medications Medications Current Medications Acetaminophen (Tylenol Tab) 650 mg Q6H PRN PO PAIN LEVEL 1-3 OR FEVER Last administered on 03/02/17 12:59; Admin Dose 650 MG; Start 02/25/17 at 18:00 Docusate Sodium (Colace) 100 mg Q12H PRN PO CONSTIPATION Last administered on 10:10; Admin Dose 100 MG; Start 02/25/17 at 18:00 Magnesium Hydroxide (Milk Of Mag) 30 ml DAILY PRN PO CONSTIPATION Last administered on 02/27/17 10:10; Admin Dose 30 ML; Start 02/25/17 at 18:00 Sodium Biphosphate/ Sodium Phosphate (Fleet Enema) 133 ml DAILY PRN [place] CONSTIPATION; Start 02/25/17 at 18:00 Pantoprazole (Protonix Tab) 40 mg DAILY@06 PO Last administered on 03/03/17 05 :58; Admin Dose 40 MG; Start 02/26/17 at 06:00 Heparin Sodium (Porcine) 5000 unit 5,000 unit Q12 SC Last administered on 08:36; Admin Dose 5,000 UNIT; Start 02/25/17 at 21:00 Sodium Chloride (NS) 1,000 ml @ 100 mls/hr Q10H IV Last administered on 05:58; Admin Dose 100 MLS/HR; Start 02/25/17 at 17:56 Nitroglycerin (Nitroglycerin (Sl Tab) 0.4 Mg) 1 tab Q5M PRN SL ANGINA; Start at 18:00 Levetiracetam (Keppra) 500 mg BID PO Last administered on 03/03/17 08:35; Admin Dose 500 MG; Start 02/25/17 at 21:00 IV Flush (NS 10 ml) 10 ml PRN PRN IV IV PROTOCOL; Start 02/26/17 at 10:30 Diphenhydramine HCl (Benadryl) 25 mg Q6 PRN IV NAUSEA Last administered on 03/03 10:01; Admin Dose 25 MG; Start 02/26/17 at 20:00 Quetiapine Fumarate (Seroquel) 100 mg HS PO Last administered on 03/02/17 20: 04; Admin Dose 100 MG; Start 02/26/17 at 21:30 Fentanyl (Duragesic 50 Mcg/Hr Patch) 1 patch Q72H TRANSDERM Last administered on 03/02/17 20:14; Admin Dose 1 PATCH; Start 02/27/17 at 19:00 Promethazine HCl (Phenergan) 25 mg Q6H PRN PO NAUSEA AND/OR VOMITING Last administered on 03/02/17 11:36; Admin Dose 25 MG; Start 02/27/17 at 19:30 SLY WRIGHT MD March 03, 2017 14:36
--- NOTE | 2017-03-03 15:55 | RADRPT ---
PROCEDURE: XR right shoulder. CLINICAL INDICATION: Pain TECHNIQUE: AP and lateral views of the right shoulder were performed. COMPARISON: None. FINDINGS: There is a subluxed appearance of the right shoulder inferiorly however this may be positional in na ture. There is no radiographic evidence for fracture. IMPRESSION: Suspected anterior partial dislocation or subluxation of the right shoulder without visible fracture . This may be artifactual secondary to poor positioning during the exam. Repeat study can be perfo rmed with a full shoulder series to confirm. RPTAT: AA .Racheal Kohler MD, Date Time Electronically viewed and signed by .Racheal Kohler MD, on 03/03/2017 15:54 .J/
[2017-03-03] MEDS: QUETIAPINE 100 MG TAB PO SCH (20:47)
[2017-03-03] MEDS: ACETAMINOPHEN 325 MG TAB PO PRN (20:47)
[2017-03-04] VITALS (12 sets, daily range): BP systolic 93–116; BP diastolic 52–71; PULSE 60–99; RESP 18–20
[2017-03-04] MEDS: DIPHENHYDRAMINE 50 MG INJ IV PRN ×3 (03:04→19:46)
[2017-03-04] MEDS: SOD CHLORIDE 0.9% 1,000 ML IV SCH ×2 (03:05→09:21)
[2017-03-04] MEDS: PANTOPRAZOLE (EC) 40 MG TAB PO SCH (05:48)
[2017-03-04 07:11] LABS: ADD SCAN DIFF NO
[2017-03-04 07:16] LABS: BASOPHILS % 0.6 % (0.0-2.0); EOSINOPHILS # 0.2 10^3/ul (0.0-0.5); EOSINOPHILS % 4.7 % (0.0-7.0); HEMATOCRIT 31.6 % (37.0-47.0); HEMOGLOBIN 10.4 g/dl (12.0-16.0); LYMPHOCYTES # 2.2 10^3/ul (0.8-2.9); LYMPHOCYTES % 42.3 % (15.0-51.0); MEAN CORPUSCULAR HEMOGLOBIN 28.4 pg (29.0-33.0); MEAN CORPUSCULAR HGB CONC 32.9 g/dl (32.0-37.0); MEAN CORPUSCULAR VOLUME 86.3 fl (82.0-101.0); MEAN PLATELET VOLUME 10.3 fl (7.4-10.4); MONOCYTE # 0.3 10^3/ul (0.3-0.9); MONOCYTES % 6.5 % (0.0-11.0); NEUTROPHIL # 2.3 10^3/ul (1.6-7.5); NEUTROPHILS % 45.7 % (39.0-77.0); PLATELET COUNT 231 10^3/UL (140-415); RED BLOOD COUNT 3.66 10^6/ul (4.20-5.40); RED CELL DISTRIBUTION WIDTH 14.4 % (11.5-14.5); WHITE BLOOD COUNT 5.1 10^3/ul (4.8-10.8)
[2017-03-04 07:34] LABS: POTASSIUM 3.8 mmol/L (3.5-5.1)
[2017-03-04 07:37] LABS: CREATININE 0.61 mg/dl (0.44-1.00)
[2017-03-04 07:38] LABS: CALCIUM 8.6 mg/dl (8.4-10.2)
[2017-03-04] MEDS: ACETAMINOPHEN 325 MG TAB PO PRN ×3 (09:11→21:33)
[2017-03-04] MEDS: LEVETIRACETAM 500 MG TAB PO SCH ×2 (09:11→21:33)
[2017-03-04] MEDS: HEPARIN 5,000 UNIT/0.5 ML VIAL SC SCH ×2 (09:21→21:40)
--- NOTE | 2017-03-04 13:33 | CONS ---
Date/Time of Note Date/Time of Note DATE: 03/04/17 TIME: 13:32 Assessment/Plan Assessment/Plan Additional Assessment/Plan Sinus bradycardia-improved Intermittent hypotension Preserved ejection fraction Chronic pain on narcotics Spinal pathology -Heart rate trend remained stable. Continue to hold antihypertensives at the current time. Consultation Date/Type/Reason Admit Date/Time February 25, 2017 at 14:49 Type of Consultation: cv 24 HR Interval Summary Free Text/Dictation Denies palpitations, dizziness Exam/Review of Systems Vital Signs Vitals Vital Signs Date Time Temp Pulse Resp B/P Pulse Ox O2 Delivery O2 Flow Rate FiO2 03/04/17 12:11 98.3 64 20 93/52 98 02/28/17 16:00 Room Air Intake and Output 03/03/17 03/03/17 03/04/17 14:59 22:59 06:59 Intake Total 2200 ml 450 ml Balance 2200 ml 450 ml Exam No apparent distress Constitutional: alert, oriented Head: normocephalic Respiratory: other (Coarse breath sounds bilaterally, no wheezing) Cardiovascular: other (S1-S2 heard), regular rate and rhythm Gastrointestinal: bowel sounds, non-tender, soft Extremities: other (No edema) Results Result Diagram: 03/04/17 0650 03/04/17 0650 Results 24 hrs Laboratory Tests Test 03/04/17 06:50 White Blood Count 5.1 Red Blood Count 3.66 L Hemoglobin 10.4 L Hematocrit 31.6 L Mean Corpuscular Volume 86.3 Mean Corpuscular Hemoglobin 28.4 L Mean Corpuscular Hemoglobin Concent 32.9 Red Cell Distribution Width 14.4 Platelet Count 231 Mean Platelet Volume 10.3 Neutrophils % 45.7 Lymphocytes % 42.3 Monocytes % 6.5 Eosinophils % 4.7 Basophils % 0.6 Nucleated Red Blood Cells % 0.0 Neutrophils # 2.3 Lymphocytes # 2.2 Monocytes # 0.3 Eosinophils # 0.2 Basophils # 0.0 Nucleated Red Blood Cells # 0.0 Sodium Level 142 Potassium Level 3.8 Chloride Level 114 H Carbon Dioxide Level 27 Anion Gap 5 #L Blood Urea Nitrogen 7 Creatinine 0.61 Glucose Level 80 Calcium Level 8.6 Medications Medications Current Medications Acetaminophen (Tylenol Tab) 650 mg Q6H PRN PO PAIN LEVEL 1-3 OR FEVER Last administered on 03/04/17t 09:11; Admin Dose 650 MG; Start 02/25/17 at 18:00 Docusate Sodium (Colace) 100 mg Q12H PRN PO CONSTIPATION Last administered on 10:10; Admin Dose 100 MG; Start 02/25/17 at 18:00 Magnesium Hydroxide (Milk Of Mag) 30 ml DAILY PRN PO CONSTIPATION Last administered on 02/27/17 10:10; Admin Dose 30 ML; Start 02/25/17 at 18:00 Sodium Biphosphate/ Sodium Phosphate (Fleet Enema) 133 ml DAILY PRN [place] CONSTIPATION; Start 02/25/17 at 18:00 Pantoprazole (Protonix Tab) 40 mg DAILY@06 PO Last administered on 03/04/17 05 :48; Admin Dose 40 MG; Start 02/26/17 at 06:00 Heparin Sodium (Porcine) (Heparin (5000 Units/0.5 ml)) 5,000 unit Q12 SC Last administered on 03/04/17 09:21; Admin Dose 5,000 UNIT; Start 02/25/17 at 21:00 Nitroglycerin (Nitroglycerin (Sl Tab) 0.4 Mg) 1 tab Q5M PRN SL ANGINA; Start at 18:00 Levetiracetam (Keppra) 500 mg BID PO Last administered on 03/04/17 09:11; Admin Dose 500 MG; Start 02/25/17 at 21:00 IV Flush (NS 10 ml) 10 ml PRN PRN IV IV PROTOCOL; Start 02/26/17 at 10:30 Diphenhydramine HCl (Benadryl) 25 mg Q6 PRN IV NAUSEA Last administered on 03/04 09:11; Admin Dose 25 MG; Start 02/26/17 at 20:00 Quetiapine Fumarate (Seroquel) 100 mg HS PO Last administered on 03/03/17 20: 47; Admin Dose 100 MG; Start 02/26/17 at 21:30 Fentanyl (Duragesic 50 Mcg/Hr Patch) 1 patch Q72H TRANSDERM Last administered on 03/02/17 20:14; Admin Dose 1 PATCH; Start 02/27/17 at 19:00 Promethazine HCl (Phenergan) 25 mg Q6H PRN PO NAUSEA AND/OR VOMITING Last administered on 03/02/17 11:36; Admin Dose 25 MG; Start 02/27/17 at 19:30 Brayden Ramirez DO March 04, 2017 13:33
--- NOTE | 2017-03-04 16:05 | PN ---
Date/Time of Note Date/Time of Note DATE: 03/04/17 TIME: 16:02 Assessment/Plan VTE Prophylaxis VTE Prophylaxis Intervention: heparin, SCD's Lines/Catheters IV Catheter Type (from Nrsg): PICC Line Central line still needed: Yes (difficult peripheral access ) Urinary Cath still in place: No Assessment/Plan Assessment/Plan 1. Sinus bradycardia, likely secondary to a combination of clonidine use and pain medicine use as an outpatient. Now heart rate improved, in normal sinus rhythm. 2. Hypotension, resolved. 3. History of spinal tumor in the past with multiple surgeries in the past, leading to chronic pain syndrome, now on pain management. 4. Seizure disorder. stable, Continue Keppra. 5. Anxiety and depression, stable, on seroqual 6. History of pulmonary aspergillosis in the past. 7. Neurocysticercosis, stable. 8. Mechanical fall with right shoulder pain, d ray showed partial dislocation, will order MRI Right shoulder and Orthopedic DrApril [place] ena sánchez consulted to see pt 9. DVT prophylaxis: heparin downgrade to med/surge floor Subjective 24 Hr Interval Summary Free Text/Dictation HR stable,c/o right shoulder pain Exam/Review of Systems Vital Signs Vitals Vital Signs Date Time Temp Pulse Resp B/P Pulse Ox O2 Delivery O2 Flow Rate FiO2 03/04/17 15:53 98.3 68 20 116/54 98 02/28/17 16:00 Room Air Intake and Output 03/03/17 03/03/17 03/04/17 15:00 23:00 07:00 Intake Total 2200 ml 450 ml Balance 2200 ml 450 ml Exam GENERAL: The patient lying in bed, more alert HEENT: Pupils equal, round, react to light. Extraocular muscles intact. NECK: Supple, no thyromegaly. LUNGS: Clear to auscultation bilaterally. CARDIOVASCULAR: S1,S2, No rubs or gallops. ABDOMEN: Soft, nontender, nondistended. Normal bowel sounds. No rebound or guarding. MUSCULOSKELETAL: No lower extremity bilaterally. NEUROLOGIC: No focal deficits. Right shoulder Tender to palpation Results Result Diagram: 03/04/17 0650 03/04/17 0650 Results 24 hrs Laboratory Tests Test 03/04/17 06:50 White Blood Count 5.1 Red Blood Count 3.66 L Hemoglobin 10.4 L Hematocrit 31.6 L Mean Corpuscular Volume 86.3 Mean Corpuscular Hemoglobin 28.4 L Mean Corpuscular Hemoglobin Concent 32.9 Red Cell Distribution Width 14.4 Platelet Count 231 Mean Platelet Volume 10.3 Neutrophils % 45.7 Lymphocytes % 42.3 Monocytes % 6.5 Eosinophils % 4.7 Basophils % 0.6 Nucleated Red Blood Cells % 0.0 Neutrophils # 2.3 Lymphocytes # 2.2 Monocytes # 0.3 Eosinophils # 0.2 Basophils # 0.0 Nucleated Red Blood Cells # 0.0 Sodium Level 142 Potassium Level 3.8 Chloride Level 114 H Carbon Dioxide Level 27 Anion Gap 5 #L Blood Urea Nitrogen 7 Creatinine 0.61 Glucose Level 80 Calcium Level 8.6 Medications Medications Current Medications Acetaminophen (Tylenol Tab) 650 mg Q6H PRN PO PAIN LEVEL 1-3 OR FEVER Last administered on 03/04/17 14:50; Admin Dose 650 MG; Start 02/25/17 at 18:00 Docusate Sodium (Colace) 100 mg Q12H PRN PO CONSTIPATION Last administered on 10:10; Admin Dose 100 MG; Start 02/25/17 at 18:00 Magnesium Hydroxide (Milk Of Mag) 30 ml DAILY PRN PO CONSTIPATION Last administered on 02/27/17 10:10; Admin Dose 30 ML; Start 02/25/17 at 18:00 Sodium Biphosphate/ Sodium Phosphate (Fleet Enema) 133 ml DAILY PRN [place] CONSTIPATION; Start 02/25/17 at 18:00 Pantoprazole (Protonix Tab) 40 mg DAILY@06 PO Last administered on 03/04/17 05 :48; Admin Dose 40 MG; Start 02/26/17 at 06:00 Heparin Sodium (Porcine) (Heparin (5000 Units/0.5 ml)) 5,000 unit Q12 SC Last administered on 03/04/17 09:21; Admin Dose 5,000 UNIT; Start 02/25/17 at 21:00 Nitroglycerin (Nitroglycerin (Sl Tab) 0.4 Mg) 1 tab Q5M PRN SL ANGINA; Start at 18:00 Levetiracetam (Keppra) 500 mg BID PO Last administered on 03/04/17 09:11; Admin Dose 500 MG; Start 02/25/17 at 21:00 IV Flush (NS 10 ml) 10 ml PRN PRN IV IV PROTOCOL; Start 02/26/17 at 10:30 Diphenhydramine HCl (Benadryl) 25 mg Q6 PRN IV NAUSEA Last administered on 03/04 09:11; Admin Dose 25 MG; Start 02/26/17 at 20:00 Quetiapine Fumarate (Seroquel) 100 mg HS PO Last administered on 03/03/17 20: 47; Admin Dose 100 MG; Start 02/26/17 at 21:30 Fentanyl (Duragesic 50 Mcg/Hr Patch) 1 patch Q72H TRANSDERM Last administered on 03/02/17 20:14; Admin Dose 1 PATCH; Start 02/27/17 at 19:00 Promethazine HCl (Phenergan) 25 mg Q6H PRN PO NAUSEA AND/OR VOMITING Last administered on 03/02/17 11:36; Admin Dose 25 MG; Start 02/27/17 at 19:30 SHARI MONGE MD March 04, 2017 16:04
[2017-03-04] MEDS ORDERED: LORAZEPAM 2 MG INJ IV ONE (16:30)
--- NOTE | 2017-03-04 17:59 | RADRPT ---
PROCEDURE: MRI OF THE RIGHT SHOULDER CLINICAL INDICATION: The patient fell. Right shoulder pain. TECHNIQUE: MRI images of the right shoulder were obtained utilizing multiple sequences in multiple planes. Images were interpreted on high-resolution PACS system. COMPARISON: none . FINDINGS: Osseous acromion outlet: The acromion is type 2. Coronal images demonstrate moderate lateral downslo ping. The AC joint is unremarkable. Rotator Cuff: There is a strain of the critical zone and insertion of the supraspinatus tendon anter iorly seen on coronal images 9-11. There is minimal critical zone articular surface partial tearing . There is also bursitis and there is reactive edema within the adjacent greater tuberosity. The s ubscapularis tendon is intact. Labral and capsular structures: There is either capsulitis or capsular sprain seen anteriorly on cor onal image number 11. No detachment is seen. Biceps tendon and anchor: There is fraying of the biceps anchor. No evidence for biceps dislocatio n, subluxation or rupture. Osseous structures: There is bone marrow edema within the greater tuberosity both anteriorly and pos teriorly seen on axial image number 11. Findings are consistent with reactive edema secondary to ro tator cuff tendinopathy and capsulitis versus contusion. Other findings: The suprascapular and spinoglenoid notch appear normal. No mass identified. IMPRESSION: 1. Strain of the critical zone and insertion of the supraspinatus tendon with minimal articular antionette face partial tearing. 2. Capsulitis versus capsular sprain. 3. Bone marrow edema within the greater tuberosity is most likely reactive and secondary to rotator cuff tendinopathy and capsulitis versus contusion. No cortical fracture Is seen. 4. Fraying of the biceps anchor. RPTAT: XX .Emmanuel Cleaning MD, MD Date Time Electronically viewed and signed by .Emmanuel Cleaning MD, MD on 03/04/2017 17:59 .T/
[2017-03-04] MEDS: QUETIAPINE 100 MG TAB PO SCH (21:33)
[2017-03-04] MEDS: morphine 2 MG INJ IV PRN (22:24)
[2017-03-05] VITALS (8 sets, daily range): BP systolic 96–116; BP diastolic 52–66; PULSE 71–79; RESP 16–20
[2017-03-05] MEDS: DIPHENHYDRAMINE 50 MG INJ IV PRN ×4 (02:34→20:50)
[2017-03-05] MEDS: morphine 2 MG INJ IV PRN ×5 (02:34→20:51)
[2017-03-05] MEDS: PANTOPRAZOLE (EC) 40 MG TAB PO SCH (06:00)
[2017-03-05] MEDS: LEVETIRACETAM 500 MG TAB PO SCH ×2 (08:48→20:51)
[2017-03-05] MEDS: HEPARIN 5,000 UNIT/0.5 ML VIAL SC SCH ×2 (09:55→20:47)
[2017-03-05 10:00] LABS: ADD SCAN DIFF NO
[2017-03-05 10:04] LABS: BASOPHILS % 0.8 % (0.0-2.0); EOSINOPHILS # 0.1 10^3/ul (0.0-0.5); EOSINOPHILS % 2.9 % (0.0-7.0); HEMATOCRIT 32.8 % (37.0-47.0); HEMOGLOBIN 10.8 g/dl (12.0-16.0); LYMPHOCYTES # 2.1 10^3/ul (0.8-2.9); LYMPHOCYTES % 43.4 % (15.0-51.0); MEAN CORPUSCULAR HEMOGLOBIN 28.1 pg (29.0-33.0); MEAN CORPUSCULAR HGB CONC 32.9 g/dl (32.0-37.0); MEAN CORPUSCULAR VOLUME 85.4 fl (82.0-101.0); MEAN PLATELET VOLUME 10.2 fl (7.4-10.4); MONOCYTE # 0.3 10^3/ul (0.3-0.9); MONOCYTES % 6.4 % (0.0-11.0); NEUTROPHIL # 2.2 10^3/ul (1.6-7.5); NEUTROPHILS % 46.3 % (39.0-77.0); PLATELET COUNT 226 10^3/UL (140-415); RED BLOOD COUNT 3.84 10^6/ul (4.20-5.40); RED CELL DISTRIBUTION WIDTH 14.2 % (11.5-14.5); WHITE BLOOD COUNT 4.8 10^3/ul (4.8-10.8)
[2017-03-05 10:20] LABS: POTASSIUM 3.8 mmol/L (3.5-5.1)
[2017-03-05 10:22] LABS: CREATININE 0.61 mg/dl (0.44-1.00)
[2017-03-05 10:23] LABS: CALCIUM 8.9 mg/dl (8.4-10.2)
--- NOTE | 2017-03-05 16:31 | CONS ---
DATE OF ADMISSION: 02/25/2017 DATE OF CONSULTATION: 03/05/2017 TYPE OF CONSULTATION: Orthopedic. HISTORY OF PRESENT ILLNESS: The patient is a 46-year-old female who was admitted on 02/25/2017 when she was sent to the emergency room from her pain clinic because of the possible syncopal episode wi th dizziness and generalized weakness. She obviously had an unwitnessed slip and fall about 2 days prior to my examination, landing on her right side. According to the patient, she has been having pain around the right shoulder and right arm following the incidents. She is known to have multiple medical problems including history of spinal tumor, seizure disorder, anxiety, dermatitis and pulmonary aspergillosis. At the time of admission, she was complaining of g eneralized body pain, back pain and headaches. PHYSICAL EXAMINATION: My examination revealed a 46-year-old female who was alert and oriented. Her main complaints were involving her right and right shoulder. Palpation did not revealed any locali zed tenderness over the acromioclavicular joint or subacromial space. There was tenderness over the lateral aspect of the upper portion of the impingement test while her attention was not directed to the shoulder. It did not show any positive impingement signs. There was no evidence of acute neur ovascular compromise involving the right lower extremity. There was no obvious swelling. There wer e no obvious signs of ecchymosis. During the discussion, she was moving her right upper extremity w ithout any major difficulties. X-rays of the right shoulder was essentially within normal limits. MRI scan of the right shoulder d id not show any evidence of acute trauma. There were no signs of acute fracture or dislocations. DIAGNOSTIC IMPRESSION: Pain around the right shoulder and right upper arm, possibly from soft tissu e contusion, rule out possible development of the shoulder impingement syndrome. RECOMMENDATIONS FOR MANAGEMENT: 1. Temporary protection in a sling. 2. Consider possible subacromial space injection with steroid. 3. Avoid any position or activities that cause pain in order to prevent further worsening of the sy mptoms and reduce the pain medications so she can ____ the pain. During the discussion seems to be very unhappy that we did not discover any major problems on the di agnostic studies, etc. and she requested a second opinion consultation. My further ortho followup will be on p.r.n. basis. Dictated By: SILVIA BARBER/MONIKA Conf#: [id number] DID#: [id number]
--- NOTE | 2017-03-05 17:53 | PN ---
Date/Time of Note Date/Time of Note DATE: 03/05/17 TIME: 17:51 Assessment/Plan VTE Prophylaxis VTE Prophylaxis Intervention: heparin Lines/Catheters IV Catheter Type (from Nrsg): PICC Line Central line still needed: Yes (difficult peripheral access ) Urinary Cath still in place: No Assessment/Plan Assessment/Plan 1. Sinus bradycardia, likely secondary to a combination of clonidine use and pain medicine use as an outpatient. Now heart rate improved, in normal sinus rhythm. 2. Hypotension, resolved. 3. History of spinal tumor in the past with multiple surgeries in the past, leading to chronic pain syndrome, now on pain management. 4. Seizure disorder. stable, Continue Keppra. 5. Anxiety and depression, stable, on seroqual 6. History of pulmonary aspergillosis in the past. 7. Neurocysticercosis, stable. 8. Mechanical fall with right shoulder pain, d ray showed partial dislocation, MRI Right shoulder negative for Acute findings, S/p Orthopedic saw pt- no acute indication at this time 9. DVT prophylaxis: heparin Subjective 24 Hr Interval Summary Free Text/Dictation c/oright shoulder pain, MRI negative for acute findings, S/p Orthopedic follow up Exam/Review of Systems Vital Signs Vitals Vital Signs Date Time Temp Pulse Resp B/P Pulse Ox O2 Delivery O2 Flow Rate FiO2 03/05/17 12:14 97.6 79 16 104/66 99 Room Air Intake and Output 03/04/17 03/04/17 03/05/17 15:00 23:00 07:00 Intake Total 500 ml 800 ml Balance 500 ml 800 ml Exam GENERAL: The patient lying in bed, more alert HEENT: Pupils equal, round, react to light. Extraocular muscles intact. NECK: Supple, no thyromegaly. LUNGS: Clear to auscultation bilaterally. CARDIOVASCULAR: S1,S2, No rubs or gallops. ABDOMEN: Soft, nontender, nondistended. Normal bowel sounds. No rebound or guarding. MUSCULOSKELETAL: No lower extremity bilaterally. NEUROLOGIC: No focal deficits. Right shoulder Tender to palpation Results Result Diagram: 03/05/17 0940 03/05/17 0940 Results 24 hrs Laboratory Tests Test 03/05/17 09:40 White Blood Count 4.8 Red Blood Count 3.84 L Hemoglobin 10.8 L Hematocrit 32.8 L Mean Corpuscular Volume 85.4 Mean Corpuscular Hemoglobin 28.1 L Mean Corpuscular Hemoglobin Concent 32.9 Red Cell Distribution Width 14.2 Platelet Count 226 Mean Platelet Volume 10.2 Neutrophils % 46.3 Lymphocytes % 43.4 Monocytes % 6.4 Eosinophils % 2.9 Basophils % 0.8 Nucleated Red Blood Cells % 0.0 Neutrophils # 2.2 Lymphocytes # 2.1 Monocytes # 0.3 Eosinophils # 0.1 Basophils # 0.0 Nucleated Red Blood Cells # 0.0 Sodium Level 142 Potassium Level 3.8 Chloride Level 113 H Carbon Dioxide Level 27 Anion Gap 6 L Blood Urea Nitrogen 8 Creatinine 0.61 Glucose Level 84 Calcium Level 8.9 Medications Medications Current Medications Acetaminophen (Tylenol Tab) 650 mg Q6H PRN PO PAIN LEVEL 1-3 OR FEVER Last administered on 03/04/17 21:33; Admin Dose 650 MG; Start 02/25/17 at 18:00 Docusate Sodium (Colace) 100 mg Q12H PRN PO CONSTIPATION Last administered on 10:10; Admin Dose 100 MG; Start 02/25/17 at 18:00 Magnesium Hydroxide (Milk Of Mag) 30 ml DAILY PRN PO CONSTIPATION Last administered on 02/27/17 10:10; Admin Dose 30 ML; Start 02/25/17 at 18:00 Sodium Biphosphate/ Sodium Phosphate (Fleet Enema) 133 ml DAILY PRN [place] CONSTIPATION; Start 02/25/17 at 18:00 Pantoprazole (Protonix Tab) 40 mg DAILY@06 PO Last administered on 03/05/17 06 :00; Admin Dose 40 MG; Start 02/26/17 at 06:00 Heparin Sodium (Porcine) (Heparin (5000 Units/0.5 ml)) 5,000 unit Q12 SC Last administered on 03/05/17 09:55; Admin Dose 5,000 UNIT; Start 02/25/17 at 21:00 Nitroglycerin (Nitroglycerin (Sl Tab) 0.4 Mg) 1 tab Q5M PRN SL ANGINA; Start at 18:00 Levetiracetam (Keppra) 500 mg BID PO Last administered on 03/05/17 08:48; Admin Dose 500 MG; Start 02/25/17 at 21:00 IV Flush (NS 10 ml) 10 ml PRN PRN IV IV PROTOCOL Last administered on 16:42; Admin Dose 10 ML; Start 02/26/17 at 10:30 Diphenhydramine HCl (Benadryl) 25 mg Q6 PRN IV NAUSEA Last administered on 03/05 14:47; Admin Dose 25 MG; Start 02/26/17 at 20:00 Quetiapine Fumarate (Seroquel) 100 mg HS PO Last administered on 03/04/17 21: 33; Admin Dose 100 MG; Start 02/26/17 at 21:30 Fentanyl (Duragesic 50 Mcg/Hr Patch) 1 patch Q72H TRANSDERM Last administered on 03/02/17 20:14; Admin Dose 1 PATCH; Start 02/27/17 at 19:00 Promethazine HCl (Phenergan) 25 mg Q6H PRN PO NAUSEA AND/OR VOMITING Last administered on 03/02/17 11:36; Admin Dose 25 MG; Start 02/27/17 at 19:30 Morphine Sulfate (morphine) 2 mg Q4H PRN IV PAIN Last administered on 16:42; Admin Dose 2 MG; Start 03/04/17 at 22:30 SHARI MONGE MD March 05, 2017 17:53
[2017-03-05] MEDS: FENTAnyl PATCH 50 MCG/HR TRANSDERM SCH (19:06)
[2017-03-05] MEDS: QUETIAPINE 100 MG TAB PO SCH (20:51)
[2017-03-06] MEDS: morphine 2 MG INJ IV PRN ×5 (04:25→20:46)
[2017-03-06] MEDS: DIPHENHYDRAMINE 50 MG INJ IV PRN ×3 (04:26→16:45)
[2017-03-06] MEDS: PANTOPRAZOLE (EC) 40 MG TAB PO SCH (06:24)
[2017-03-06 07:40] VITALS: BP 113/55; RESP 18
[2017-03-06] MEDS: LEVETIRACETAM 500 MG TAB PO SCH ×2 (08:09→20:37)
[2017-03-06] MEDS: NACL 0.9% 3 ML SYG IV SCH (08:10)
[2017-03-06] MEDS: HEPARIN 5,000 UNIT/0.5 ML VIAL SC SCH ×2 (08:11→20:38)
--- NOTE | 2017-03-06 11:42 | PN ---
Date/Time of Note Date/Time of Note DATE: 03/06/17 TIME: 11:38 Assessment/Plan VTE Prophylaxis VTE Prophylaxis Intervention: heparin Lines/Catheters IV Catheter Type (from Nrsg): PICC Line Central line still needed: Yes (IV access ) Urinary Cath still in place: No Assessment/Plan Assessment/Plan 1. Sinus bradycardia, likely secondary to a combination of clonidine use and pain medicine use as an outpatient. Now heart rate improved, in normal sinus rhythm. 2. Hypotension, resolved. 3. History of spinal tumor in the past with multiple surgeries in the past, leading to chronic pain syndrome, now on pain management. 4. Seizure disorder. stable, Continue Keppra. 5. Anxiety and depression, stable, on seroqual 6. History of pulmonary aspergillosis in the past. 7. Neurocysticercosis, stable. 8. Mechanical fall with right shoulder pain,MRI right shoulder neg for disolocation/fracture s/p ortho consult- no surgical intervention 9. DVT prophylaxis: heparin Subjective 24 Hr Interval Summary Free Text/Dictation c/o right shoulder pain Exam/Review of Systems Vital Signs Vitals Vital Signs Date Time Temp Pulse Resp B/P Pulse Ox O2 Delivery O2 Flow Rate FiO2 03/06/17 07:40 98.6 76 18 113/55 96 03/05/17 12:14 Room Air Intake and Output 03/05/17 03/05/17 03/06/17 15:00 23:00 07:00 Intake Total 470 ml 400 ml Balance 470 ml 400 ml Exam GENERAL: The patient lying in bed, more alert HEENT: Pupils equal, round, react to light. Extraocular muscles intact. NECK: Supple, no thyromegaly. LUNGS: Clear to auscultation bilaterally. CARDIOVASCULAR: S1,S2, No rubs or gallops. ABDOMEN: Soft, nontender, nondistended. Normal bowel sounds. No rebound or guarding. MUSCULOSKELETAL: No lower extremity bilaterally. NEUROLOGIC: No focal deficits. Right shoulder Tender to palpation Results Result Diagram: 03/05/1740 03/05/17 0940 Medications Medications Current Medications Acetaminophen (Tylenol Tab) 650 mg Q6H PRN PO PAIN LEVEL 1-3 OR FEVER Last administered on 03/04/17t 21:33; Admin Dose 650 MG; Start 02/25/17 at 18:00 Docusate Sodium (Colace) 100 mg Q12H PRN PO CONSTIPATION Last administered on 10:10; Admin Dose 100 MG; Start 02/25/17 at 18:00 Magnesium Hydroxide (Milk Of Mag) 30 ml DAILY PRN PO CONSTIPATION Last administered on 02/27/17 10:10; Admin Dose 30 ML; Start 02/25/17 at 18:00 Sodium Biphosphate/ Sodium Phosphate (Fleet Enema) 133 ml DAILY PRN [place] CONSTIPATION; Start 02/25/17 at 18:00 Pantoprazole (Protonix Tab) 40 mg DAILY@06 PO Last administered on 03/06/17 06: 24; Admin Dose 40 MG; Start 02/26/17 at 06:00 Heparin Sodium (Porcine) (Heparin (5000 Units/0.5 ml)) 5,000 unit Q12 SC Last administered on 03/06/17 08:11; Admin Dose 5,000 UNIT; Start 02/25/17 at 21:00 Nitroglycerin (Nitroglycerin (Sl Tab) 0.4 Mg) 1 tab Q5M PRN [place] ANGINA; Start at 18:00 Levetiracetam (Keppra) 500 mg BID PO Last administered on 03/06/17 08:09; Admin Dose 500 MG; Start 02/25/17 at 21:00 IV Flush (NS 10 ml) 10 ml PRN PRN IV IV PROTOCOL Last administered on 03/06/17 10:29; Admin Dose 10 ML; Start 02/26/17 at 10:30 Diphenhydramine HCl (Benadryl) 25 mg Q6 PRN IV NAUSEA Last administered on 10:29; Admin Dose 25 MG; Start 02/26/17 at 20:00 Quetiapine Fumarate (Seroquel) 100 mg HS PO Last administered on 03/05/17 20: 51; Admin Dose 100 MG; Start 02/26/17 at 21:30 Fentanyl (Duragesic 50 Mcg/Hr Patch) 1 patch Q72H TRANSDERM Last administered on 03/05/17 19:06; Admin Dose 1 PATCH; Start 02/27/17 at 19:00 Promethazine HCl (Phenergan) 25 mg Q6H PRN PO NAUSEA AND/OR VOMITING Last administered on 03/02/17 11:36; Admin Dose 25 MG; Start 02/27/17 at 19:30 Morphine Sulfate (morphine) 2 mg Q4H PRN IV PAIN Last administered on 03/06/17 08:10; Admin Dose 2 MG; Start 03/04/17 at 22:30 SHARI MONGE MD Mar 06, 2017 11:42
[2017-03-06] MEDS ORDERED: METH500T PO (11:45)
--- NOTE | 2017-03-06 13:03 | PN ---
Date/Time of Note Date/Time of Note DATE: 03/06/17 TIME: 13:03 Assessment/Plan VTE Prophylaxis VTE Prophylaxis Intervention: SCD's Lines/Catheters IV Catheter Type (from Nrsg): PICC Line Central line still needed: No Urinary Cath still in place: No Reason Cath still needed: urinary retention Assessment/Plan Assessment/Plan Sinus bradycardia-improved Intermittent hypotension Preserved ejection fraction Chronic pain on narcotics Spinal pathology -Heart rate trend remained stable. Continue to hold antihypertensives at the current time. Subjective 24 Hr Interval Summary Free Text/Dictation the aptient with no cahge Exam/Review of Systems Vital Signs Vitals Vital Signs Date Time Temp Pulse Resp B/P Pulse Ox O2 Delivery O2 Flow Rate FiO2 03/06/17 07:40 98.6 76 18 113/55 96 03/05/17 12:14 Room Air Intake and Output 03/05/17 03/05/17 03/06/17 15:00 23:00 07:00 Intake Total 470 ml 400 ml Balance 470 ml 400 ml Results Result Diagram: 03/05/17 0940 03/05/17 0940 Medications Medications Current Medications Acetaminophen (Tylenol Tab) 650 mg Q6H PRN PO PAIN LEVEL 1-3 OR FEVER Last administered on 03/04/17 21:33; Admin Dose 650 MG; Start 02/25/17 at 18:00 Docusate Sodium (Colace) 100 mg Q12H PRN PO CONSTIPATION Last administered on 10:10; Admin Dose 100 MG; Start 02/25/17 at 18:00 Magnesium Hydroxide (Milk Of Mag) 30 ml DAILY PRN PO CONSTIPATION Last administered on 02/27/17 10:10; Admin Dose 30 ML; Start 02/25/17 at 18:00 Sodium Biphosphate/ Sodium Phosphate (Fleet Enema) 133 ml DAILY PRN [place] CONSTIPATION; Start 02/25/17 at 18:00 Pantoprazole (Protonix Tab) 40 mg DAILY@06 PO Last administered on 03/06/17 06: 24; Admin Dose 40 MG; Start 02/26/17 at 06:00 Heparin Sodium (Porcine) (Heparin (5000 Units/0.5 ml)) 5,000 unit Q12 SC Last administered on 03/06/17 08:11; Admin Dose 5,000 UNIT; Start 02/25/17 at 21:00 Nitroglycerin (Nitroglycerin (Sl Tab) 0.4 Mg) 1 tab Q5M PRN SL ANGINA; Start at 18:00 Levetiracetam (Keppra) 500 mg BID PO Last administered on 03/06/17 08:09; Admin Dose 500 MG; Start 02/25/17 at 21:00 IV Flush (NS 10 ml) 10 ml PRN PRN IV IV PROTOCOL Last administered on 03/06/17 10:29; Admin Dose 10 ML; Start 02/26/17 at 10:30 Diphenhydramine HCl (Benadryl) 25 mg Q6 PRN IV NAUSEA Last administered on 10:29; Admin Dose 25 MG; Start 02/26/17 at 20:00 Quetiapine Fumarate (Seroquel) 100 mg HS PO Last administered on 03/05/17 20: 51; Admin Dose 100 MG; Start 02/26/17 at 21:30 Fentanyl (Duragesic 50 Mcg/Hr Patch) 1 patch Q72H TRANSDERM Last administered on 03/05/17 19:06; Admin Dose 1 PATCH; Start 02/27/17 at 19:00 Promethazine HCl (Phenergan) 25 mg Q6H PRN PO NAUSEA AND/OR VOMITING Last administered on 03/02/17 11:36; Admin Dose 25 MG; Start 02/27/17 at 19:30 Morphine Sulfate (morphine) 2 mg Q4H PRN IV PAIN Last administered on 03/06/17 12:26; Admin Dose 2 MG; Start 03/04/17 at 22:30 KEISHA BOONE MD Mar 06, 2017 13:03
[2017-03-06] MEDS: QUETIAPINE 100 MG TAB PO SCH (20:37)
[2017-03-06 20:55] VITALS: BP 101/56; RESP 19
[2017-03-07] MEDS: DIPHENHYDRAMINE 50 MG INJ IV PRN ×4 (00:38→21:16)
[2017-03-07] MEDS: morphine 2 MG INJ IV PRN ×6 (00:46→21:17)
[2017-03-07] MEDS: PANTOPRAZOLE (EC) 40 MG TAB PO SCH (05:52)
[2017-03-07 07:40] VITALS: BP 105/64; RESP 18
[2017-03-07] MEDS: LEVETIRACETAM 500 MG TAB PO SCH ×2 (08:39→21:18)
[2017-03-07] MEDS: HEPARIN 5,000 UNIT/0.5 ML VIAL SC SCH ×2 (08:40→21:18)
--- NOTE | 2017-03-07 13:09 | CONS ---
Date/Time of Note Date/Time of Note DATE: 03/07/17 TIME: 13:07 Assessment/Plan Assessment/Plan Chief Complaint/Hosp Course Sinus bradycardia-improved Intermittent hypotension Preserved ejection fraction Chronic pain on narcotics Spinal pathology Chest pain Problems: Additional Assessment/Plan 1) Chest pain is noncardiac and likely musculosceletal 2) no change in therapy from cards Consultation Date/Type/Reason Admit Date/Time February 25, 2017 at 14:49 Initial Consult Date Type of Consultation: cv 24 HR Interval Summary Free Text/Dictation reports chest pain, localized, sharp, no radiation, worse with movement associated with green flem Detailed Summary Respiratory: cough Cardiovascular: chest pain Musculoskeletal: no complaints Skin: no complaints Neurologic: no complaints Exam/Review of Systems Vital Signs Vitals Vital Signs Date Time Temp Pulse Resp B/P Pulse Ox O2 Delivery O2 Flow Rate FiO2 03/07/17 07:40 98.4 76 18 105/64 94 03/05/17 12:14 Room Air Intake and Output 03/06/17 03/06/17 03/07/17 15:00 23:00 07:00 Intake Total 240 ml 250 ml Balance 240 ml 250 ml Exam Constitutional: alert, oriented Head: atraumatic, normocephalic Neck: supple Respiratory: clear to auscultation Cardiovascular: regular rate and rhythm Gastrointestinal: soft Musculoskeletal: nl extremities to inspection Extremities: normal pulses Results Result Diagram: 03/05/17 0940 03/05/17 0940 Medications Medications Current Medications Acetaminophen (Tylenol Tab) 650 mg Q6H PRN PO PAIN LEVEL 1-3 OR FEVER Last administered on 03/04/17 21:33; Admin Dose 650 MG; Start 02/25/17 at 18:00 Docusate Sodium (Colace) 100 mg Q12H PRN PO CONSTIPATION Last administered on 10:10; Admin Dose 100 MG; Start 02/25/17 at 18:00 Magnesium Hydroxide (Milk Of Mag) 30 ml DAILY PRN PO CONSTIPATION Last administered on 02/27/17 10:10; Admin Dose 30 ML; Start 02/25/17 at 18:00 Sodium Biphosphate/ Sodium Phosphate (Fleet Enema) 133 ml DAILY PRN [place] CONSTIPATION; Start 02/25/17 at 18:00 Pantoprazole (Protonix Tab) 40 mg DAILY@06 PO Last administered on 03/07/17 05: 52; Admin Dose 40 MG; Start 02/26/17 at 06:00 Heparin Sodium (Porcine) (Heparin (5000 Units/0.5 ml)) 5,000 unit Q12 SC Last administered on 03/07/17 08:40; Admin Dose 5,000 UNIT; Start 02/25/17 at 21:00 Nitroglycerin (Nitroglycerin (Sl Tab) 0.4 Mg) 1 tab Q5M PRN SL ANGINA; Start at 18:00 Levetiracetam (Keppra) 500 mg BID PO Last administered on 03/07/17 08:39; Admin Dose 500 MG; Start 02/25/17 at 21:00 IV Flush (NS 10 ml) 10 ml PRN PRN IV IV PROTOCOL Last administered on 03/06/17 10:29; Admin Dose 10 ML; Start 02/26/17 at 10:30 Diphenhydramine HCl (Benadryl) 25 mg Q6 PRN IV NAUSEA Last administered on 07:49; Admin Dose 25 MG; Start 02/26/17 at 20:00 Quetiapine Fumarate (Seroquel) 100 mg HS PO Last administered on 03/06/17 20:37 ; Admin Dose 100 MG; Start 02/26/17 at 21:30 Fentanyl (Duragesic 50 Mcg/Hr Patch) 1 patch Q72H TRANSDERM Last administered on 03/05/17 19:06; Admin Dose 1 PATCH; Start 02/27/17 at 19:00 Promethazine HCl (Phenergan) 25 mg Q6H PRN PO NAUSEA AND/OR VOMITING Last administered on 03/02/17 11:36; Admin Dose 25 MG; Start 02/27/17 at 19:30 Morphine Sulfate (morphine) 2 mg Q4H PRN IV PAIN Last administered on 03/07/17 12:57; Admin Dose 2 MG; Start 03/04/17 at 22:30 BLAKE CHURCH MD Mar 07, 2017 13:09
[2017-03-07] MEDS ORDERED: GABA300C16 PO (14:49)
--- NOTE | 2017-03-07 15:03 | DS ---
Date/Time of Note Date/Time of Note DATE: 03/07/17 TIME: 14:59 Discharge Summary Admission/Discharge Info Admit Date/Time February 25, 2017 at 14:49 Discharge Date/Time Final Diagnosis symptomatic bradycardia Patient Condition: Good Consults cardiology, orthopedic surgery Procedures 5.23 CXR no infiltrate 5.24 US guided PICC line placement 5.29 R shoulder XR IMPRESSION: Suspected anterior partial dislocation or subluxation of the right shoulder without visible fracture. This may be artifactual secondary to poor positioning during the exam. Repeat study can be performed with a full shoulder series to confirm. 5.30 MRI R shoulder IMPRESSION: 1. Strain of the critical zone and insertion of the supraspinatus tendon with minimal articular surface partial tearing. 2. Capsulitis versus capsular sprain. 3. Bone marrow edema within the greater tuberosity is most likely reactive and secondary to rotator cuff tendinopathy and capsulitis versus contusion. No cortical fracture Is seen. 4. Fraying of the biceps anchor. Hx of Present Illness The patient is a 46-year-old female with a history of spinal tumor, seizure, anxiety, dermatitis, pulmonary aspergillosis who was sent from the clinic after she had a syncopal episode. The patient was at the [facility] when she felt dizzy. Blood pressure reportedly at that time shows a systolic blood pressure in the low 70s. The patient continues to feel dizzy with generalized weakness, and reportedly had an episode of syncope or near syncope. She was then sent to the ER for further evaluation. The patient's main complaint at this time is generalized body pain, especially back pain as well as headache and nausea. When the patient presented to the ER, blood pressure was 95/71, heart rate 53, respiratory rate 14, temperature 98.5, oxygen saturation 98% on room air. She then became progressively bradycardic, and since presentation to the ER, her heart rate has remained in the 30s with the lowest documented being 34. Her systolic blood pressure for the most part has been in the low 100s as well as in the 90s. Laboratory value shows a normal CBC and BMP, and her troponins have been negative. Chest x-ray shows no acute cardiopulmonary disease. EKG shows sinus bradycardia, no heart block was noted. The patient was initially admitted to the telemetry unit, but has been transferred to ICU. Hospital Course Final Diagnosis FINAL DIAGNOSES: 1. Sinus bradycardia, likely secondary to a combination of clonidine use and pain medicine use as an outpatient. resolved 2. Hypotension, resolved. 3. History of spinal tumor in the past with multiple surgeries in the past, leading to chronic pain syndrome, now on pain management. 4. History of seizures. Continue Keppra. 5. History of anxiety and depression. 6. History of pulmonary aspergillosis in the past. 7. Neurocysticercosis, stable. 8. R shoulder pain 2/2 fall with residual soft tissue injury, no fracture HOSPITAL COURSE: A 46-year-old female originally admitted on 02/26/2017, being discharged home after being seen by physical therapy on 03/02/2017. The patient came in with altered level of consciousness. She was admitted initially to the intensive care unit because she had sinus bradycardia. Heart rate was in the 30 to 40 range. It was determined that patient had recently been started on clonidine as an outpatient, and also she was on multiple pain medicines for chronic pain syndrome as well. So, most of her pain medicines were held and her clonidine was held. She was seen by cardiology team who recommended medical management at this time. There was no need for pacemaker at this current time as after about 48 hours, her heart rate did come back to normal range. EKG did not show any signs of any significant heart blocks or other acute EKG changes. She also was found with hypotension on admission which improved after IV fluids were given. She also had an echocardiogram performed that showed ejection fraction of 65%, normal left ventricular systolic function, normal left ventricular cavity size, normal left ventricular wall thickness. The valves appeared normal. The patient became more alert. She was supposed to be seen by physical therapy on the day of discharge. She was also seen by pain management doctor who recommended cautiously giving her a fentanyl patch, but stopping her other pain medications and on discharge, she will only be on short-acting opioid medications and not long-acting medicines. The patient is ambulating with assistance from PT, tolerating p.o. diet and she will be discharged today to SNF with [facility] in improved condition. Of note, initial planned discharge date was 03.01 however she fell on 03.02 onto her R shoulder. Imaging as above, no evidence of fracture. Pt seen by Dr Hawkins from orthopedics service as well as Dr Michaels of orthopedic service, both advised nonoperative management. Pt's home gabapentin increased to aid with residual shoulder pain. Home Meds Active Scripts Gabapentin* (Gabapentin*) 300 Mg Capsule, 300 MG PO TID, #90 CAP Prov:REY BLACKMON MD 03/07/17 Methocarbamol* (Robaxin*) 500 Mg Tab, 500 MG PO BID, #14 TAB Prov:SHARI MONGE MD 03/06/17 Hydrocodone/Acetaminophen ([place] 10-325 Tablet) 1 Each Tablet, 1 EACH PO Q6 for PAIN LEVEL 7-10 for 30 Days, TAB Prov:BUNNY STORY 03/01/17 Reported Medications Levetiracetam* (Keppra*) 500 Mg Tablet, 500 MG PO BID, TAB 02/25/17 Diazepam* (Diazepam*) 10 Mg Tablet, 10 MG PO QHS, TAB 01/06/15 Quetiapine Fumarate* (Seroquel*) 400 Mg Tablet, 400 MG PO HS, TAB 01/06/15 Discontinued Reported Medications Clonidine Hcl* (Clonidine Hcl*) 0.1 Mg Tab, 0.1 MG PO DAILY, TAB 02/25/17 Fentanyl Patch* (Duragesic Patch*) 75 Mcg/Hr Transdermal Patch, 50 PATCH TD Q72H , PATCH 02/25/17 Follow-up Plan Follow up with PCP within 1 week for HR check Follow up with orthopedic surgery as advised by ortho service Primary Care Provider Brayden Simms MD Time spent on discharge: > 30 minutes REY BLACKMON MD Mar 07, 2017 15:03
--- NOTE | 2017-03-07 17:27 | PN ---
Date/Time of Note Date/Time of Note DATE: 03/07/17 TIME: 17:23 Assessment/Plan VTE Prophylaxis VTE Prophylaxis Intervention: SCD's Lines/Catheters IV Catheter Type (from Nrsg): PICC Line Central line still needed: No Urinary Cath still in place: No Assessment/Plan Assessment/Plan 46 yo F with pmhx seizure d/o, chronic pain 2/2 multiple spinal surgeries for spinal tumor, anxiety/depression admtited for bradycardia, thought to be iatrogenic. Resolved with alternation of pain/BP meds. sp fall onto R shoulder 5.28 without evidence of fracture. Plan was discharge home with HH today but per PT pt not yet sufficiently stable on her feet. PLAN cont current BP and pain regimen pt to be walked by nursing or PT TID cont AED and seizure precautions SCDs general diet dispo pending PT clearance Subjective 24 Hr Interval Summary Free Text/Dictation Initial plan this afternoon was for patient to go home with HH however per PT is not yet steady enough on her feet Exam/Review of Systems Vital Signs Vitals Vital Signs Date Time Temp Pulse Resp B/P Pulse Ox O2 Delivery O2 Flow Rate FiO2 03/07/17 07:40 98.4 76 18 105/64 94 03/05/17 12:14 Room Air Intake and Output 03/06/17 03/06/17 03/07/17 14:59 22:59 06:59 Intake Total 240 ml 250 ml Balance 240 ml 250 ml Exam nad, sitting in bed, wearing sling on R arm resp nonlabored no gross abd distension no le edema no rashes Results Result Diagram: 03/05/17 0940 03/05/17 0940 Medications Medications Current Medications Acetaminophen (Tylenol Tab) 650 mg Q6H PRN PO PAIN LEVEL 1-3 OR FEVER Last administered on 03/04/17 21:33; Admin Dose 650 MG; Start 02/25/17 at 18:00 Docusate Sodium (Colace) 100 mg Q12H PRN PO CONSTIPATION Last administered on 10:10; Admin Dose 100 MG; Start 02/25/17 at 18:00 Magnesium Hydroxide (Milk Of Mag) 30 ml DAILY PRN PO CONSTIPATION Last administered on 02/27/17 10:10; Admin Dose 30 ML; Start 02/25/17 at 18:00 Sodium Biphosphate/ Sodium Phosphate (Fleet Enema) 133 ml DAILY PRN [place] CONSTIPATION; Start 02/25/17 at 18:00 Pantoprazole (Protonix Tab) 40 mg DAILY@06 PO Last administered on 03/07/17 05: 52; Admin Dose 40 MG; Start 02/26/17 at 06:00 Heparin Sodium (Porcine) (Heparin (5000 Units/0.5 ml)) 5,000 unit Q12 SC Last administered on 03/07/17 08:40; Admin Dose 5,000 UNIT; Start 02/25/17 at 21:00 Nitroglycerin (Nitroglycerin (Sl Tab) 0.4 Mg) 1 tab Q5M PRN SL ANGINA; Start at 18:00 Levetiracetam (Keppra) 500 mg BID PO Last administered on 03/07/17 08:39; Admin Dose 500 MG; Start 02/25/17 at 21:00 IV Flush (NS 10 ml) 10 ml PRN PRN IV IV PROTOCOL Last administered on 03/06/17 10:29; Admin Dose 10 ML; Start 02/26/17 at 10:30 Diphenhydramine HCl (Benadryl) 25 mg Q6 PRN IV NAUSEA Last administered on 07:49; Admin Dose 25 MG; Start 02/26/17 at 20:00 Quetiapine Fumarate (Seroquel) 100 mg HS PO Last administered on 03/06/17 20:37 ; Admin Dose 100 MG; Start 02/26/17 at 21:30 Fentanyl (Duragesic 50 Mcg/Hr Patch) 1 patch Q72H TRANSDERM Last administered on 03/05/17 19:06; Admin Dose 1 PATCH; Start 02/27/17 at 19:00 Promethazine HCl (Phenergan) 25 mg Q6H PRN PO NAUSEA AND/OR VOMITING Last administered on 03/02/17 11:36; Admin Dose 25 MG; Start 02/27/17 at 19:30 Morphine Sulfate (morphine) 2 mg Q4H PRN IV PAIN Last administered on 03/07/17 17:04; Admin Dose 2 MG; Start 03/04/17 at 22:30 RYE BLACKMON MD Mar 07, 2017 17:27
[2017-03-07] MEDS: QUETIAPINE 100 MG TAB PO SCH (21:19)
[2017-03-07 22:06] VITALS: BP 90/56; RESP 16
[2017-03-08] MEDS: morphine 2 MG INJ IV PRN ×6 (01:18→22:01)
[2017-03-08] MEDS: PANTOPRAZOLE (EC) 40 MG TAB PO SCH (05:41)
[2017-03-08] MEDS: DIPHENHYDRAMINE 50 MG INJ IV PRN ×3 (05:58→22:01)
[2017-03-08 07:50] VITALS: BP 110/75; RESP 18; RESP 20
[2017-03-08] MEDS: LEVETIRACETAM 500 MG TAB PO SCH ×2 (08:16→21:06)
[2017-03-08] MEDS: HEPARIN 5,000 UNIT/0.5 ML VIAL SC SCH ×2 (08:17→21:07)
--- NOTE | 2017-03-08 10:23 | PN ---
Date/Time of Note Date/Time of Note DATE: 03/08/17 TIME: 10:21 Assessment/Plan VTE Prophylaxis VTE Prophylaxis Intervention: SCD's (per RN needs access) Lines/Catheters IV Catheter Type (from Nrsg): PICC Line Central line still needed: Yes Urinary Cath still in place: No Assessment/Plan Assessment/Plan 46 yo F with pmhx seizure d/o, chronic pain 2/2 multiple spinal surgeries for spinal tumor, anxiety/depression admtited for bradycardia, thought to be iatrogenic. Resolved with alternation of pain/BP meds. sp fall onto R shoulder 5.28 without evidence of fracture. Plan was discharge home with HH today but per PT pt not yet sufficiently stable on her feet. PLAN cont current BP regimen augment IV pain meds with PO to facilitate discharge pt to be walked by nursing or PT TID cont AED and seizure precautions SCDs general diet dispo pending PT clearance Subjective 24 Hr Interval Summary Free Text/Dictation Pt's R shoulder still sore HH still pending Exam/Review of Systems Vital Signs Vitals Vital Signs Date Time Temp Pulse Resp B/P Pulse Ox O2 Delivery O2 Flow Rate FiO2 03/07/17 22:06 97.5 75 16 90/56 96 03/07/17 21:13 21 03/05/17 12:14 Room Air Intake and Output 03/07/17 03/07/17 03/08/17 15:00 23:00 07:00 Intake Total 900 ml 480 ml Balance 900 ml 480 ml Exam sitting in bed, wearing cooling blanket on R shoulder no mrg lungs clear abd soft no le edema Results Result Diagram: 03/05/17 0940 03/05/17 0940 Medications Medications Current Medications Acetaminophen (Tylenol Tab) 650 mg Q6H PRN PO PAIN LEVEL 1-3 OR FEVER Last administered on 03/04/17 21:33; Admin Dose 650 MG; Start 02/25/17 at 18:00 Docusate Sodium (Colace) 100 mg Q12H PRN PO CONSTIPATION Last administered on 10:10; Admin Dose 100 MG; Start 02/25/17 at 18:00 Magnesium Hydroxide (Milk Of Mag) 30 ml DAILY PRN PO CONSTIPATION Last administered on 02/27/17 10:10; Admin Dose 30 ML; Start 02/25/17 at 18:00 Sodium Biphosphate/ Sodium Phosphate (Fleet Enema) 133 ml DAILY PRN [place] CONSTIPATION; Start 02/25/17 at 18:00 Pantoprazole (Protonix Tab) 40 mg DAILY@06 PO Last administered on 03/08/17 05: 41; Admin Dose 40 MG; Start 02/26/17 at 06:00 Heparin Sodium (Porcine) (Heparin (5000 Units/0.5 ml)) 5,000 unit Q12 SC Last administered on 03/08/17 08:17; Admin Dose 5,000 UNIT; Start 02/25/17 at 21:00 Nitroglycerin (Nitroglycerin (Sl Tab) 0.4 Mg) 1 tab Q5M PRN SL ANGINA; Start at 18:00 Levetiracetam (Keppra) 500 mg BID PO Last administered on 03/08/17 08:16; Admin Dose 500 MG; Start 02/25/17 at 21:00 IV Flush (NS 10 ml) 10 ml PRN PRN IV IV PROTOCOL Last administered on 03/06/17 10:29; Admin Dose 10 ML; Start 02/26/17 at 10:30 Quetiapine Fumarate (Seroquel) 100 mg HS PO Last administered on 03/07/17 21:19 ; Admin Dose 100 MG; Start 02/26/17 at 21:30 Fentanyl (Duragesic 50 Mcg/Hr Patch) 1 patch Q72H TRANSDERM Last administered on 03/05/17 19:06; Admin Dose 1 PATCH; Start 02/27/17 at 19:00 Promethazine HCl (Phenergan) 25 mg Q6H PRN PO NAUSEA AND/OR VOMITING Last administered on 03/02/17 11:36; Admin Dose 25 MG; Start 02/27/17 at 19:30 Morphine Sulfate (morphine) 2 mg Q4H PRN IV PAIN Last administered on 03/08/17 10:09; Admin Dose 2 MG; Start 03/04/17 at 22:30 Diphenhydramine HCl (Benadryl) 25 mg Q6H PRN PO ITCHING; Start 03/08/17 at 10:30 ; Status REY MCGUIRE MD Mar 08, 2017 10:23
[2017-03-08] MEDS: DIPHENHYDRAMINE 25 MG CAP PO PRN (13:21)
[2017-03-08] MEDS: QUETIAPINE 100 MG TAB PO SCH (21:06)
[2017-03-08 21:22] VITALS: BP 95/57; RESP 19
[2017-03-08] MEDS: FENTAnyl PATCH 50 MCG/HR TRANSDERM SCH (22:35)
[2017-03-09] MEDS: HYDROCODONE/APAP (5/325) TAB PO PRN ×2 (01:08→20:33)
[2017-03-09] MEDS: morphine 2 MG INJ IV PRN ×6 (02:31→22:32)
[2017-03-09] MEDS: PANTOPRAZOLE (EC) 40 MG TAB PO SCH (05:46)
[2017-03-09] MEDS: DIPHENHYDRAMINE 50 MG INJ IV PRN ×3 (06:45→20:34)
[2017-03-09 07:52] VITALS: BP 92/52; RESP 18
[2017-03-09] MEDS: HEPARIN 5,000 UNIT/0.5 ML VIAL SC SCH ×2 (08:57→20:35)
[2017-03-09] MEDS: LEVETIRACETAM 500 MG TAB PO SCH ×2 (08:58→20:33)
--- NOTE | 2017-03-09 17:25 | PN ---
Date/Time of Note Date/Time of Note DATE: 03/09/17 TIME: 17:23 Assessment/Plan VTE Prophylaxis VTE Prophylaxis Intervention: SCD's Lines/Catheters IV Catheter Type (from Nrsg): PICC Line Central line still needed: No Urinary Cath still in place: No Assessment/Plan Assessment/Plan 46 yo F with pmhx seizure d/o, chronic pain 2/2 multiple spinal surgeries for spinal tumor, anxiety/depression admtited for bradycardia, thought to be iatrogenic. Resolved with alternation of pain/BP meds. sp fall onto R shoulder 5.28 without evidence of fracture. PLAN cont current BP regimen augment IV pain meds with PO to facilitate discharge pt to be walked by nursing or PT TID cont AED and seizure precautions SCDs general diet dispo pending PT clearance, arrangement for HH services near pt's sister's home Subjective 24 Hr Interval Summary Free Text/Dictation Shoulder pain unchanged though ROM improving, states pain meds are making her nauseated but doesn't want to decrease pain meds at this time. states AROM in R shoulder improving Exam/Review of Systems Vital Signs Vitals Vital Signs Date Time Temp Pulse Resp B/P Pulse Ox O2 Delivery O2 Flow Rate FiO2 03/09/17 07:52 98.0 79 18 92/52 95 03/07/17 21:13 21 03/05/17 12:14 Room Air Intake and Output 03/08/17 03/08/17 03/09/17 15:00 23:00 07:00 Intake Total 950 ml 480 ml Balance 950 ml 480 ml Exam nad, sitting up in bed R shoulder: pt able to aDuct ~35 degrees no mrg lungs clear abd soft no rashes Results Result Diagram: 03/05/17 0940 03/05/17 0940 Medications Medications Current Medications Acetaminophen (Tylenol Tab) 650 mg Q6H PRN PO PAIN LEVEL 1-3 OR FEVER Last administered on 03/04/17 21:33; Admin Dose 650 MG; Start 02/25/17 at 18:00 Docusate Sodium (Colace) 100 mg Q12H PRN PO CONSTIPATION Last administered on 10:10; Admin Dose 100 MG; Start 02/25/17 at 18:00 Magnesium Hydroxide (Milk Of Mag) 30 ml DAILY PRN PO CONSTIPATION Last administered on 02/27/17 10:10; Admin Dose 30 ML; Start 02/25/17 at 18:00 Sodium Biphosphate/ Sodium Phosphate (Fleet Enema) 133 ml DAILY PRN [place] CONSTIPATION; Start 02/25/17 at 18:00 Pantoprazole (Protonix Tab) 40 mg DAILY@06 PO Last administered on 03/09/17 05: 46; Admin Dose 40 MG; Start 02/26/17 at 06:00 Heparin Sodium (Porcine) (Heparin (5000 Units/0.5 ml)) 5,000 unit Q12 SC Last administered on 03/09/17 08:57; Admin Dose 5,000 UNIT; Start 02/25/17 at 21:00 Nitroglycerin (Nitroglycerin (Sl Tab) 0.4 Mg) 1 tab Q5M PRN SL ANGINA; Start at 18:00 Levetiracetam (Keppra) 500 mg BID PO Last administered on 03/09/17 08:58; Admin Dose 500 MG; Start 02/25/17 at 21:00 IV Flush (NS 10 ml) 10 ml PRN PRN IV IV PROTOCOL Last administered on 03/06/17 10:29; Admin Dose 10 ML; Start 02/26/17 at 10:30 Quetiapine Fumarate (Seroquel) 100 mg HS PO Last administered on 03/08/17 21:06 ; Admin Dose 100 MG; Start 02/26/17 at 21:30 Fentanyl (Duragesic 50 Mcg/Hr Patch) 1 patch Q72H TRANSDERM Last administered on 03/08/17 22:35; Admin Dose 1 PATCH; Start 02/27/17 at 19:00 Promethazine HCl (Phenergan) 25 mg Q6H PRN PO NAUSEA AND/OR VOMITING Last administered on 03/02/17 11:36; Admin Dose 25 MG; Start 02/27/17 at 19:30 Morphine Sulfate (morphine) 2 mg Q4H PRN IV PAIN Last administered on 03/09/17 14:39; Admin Dose 2 MG; Start 03/04/17 at 22:30 Diphenhydramine HCl (Benadryl) 25 mg Q6H PRN PO ITCHING Last administered on 13:21; Admin Dose 25 MG; Start 03/08/17 at 10:30 Acetaminophen/ Hydrocodone Bitart ([place] (325)) 1 tab Q4H PRN PO PAIN Last administered on 03/09/17 01:08; Admin Dose 1 TAB; Start 03/08/17 at 10:30 Diphenhydramine HCl (Benadryl) 25 mg Q6H PRN IV itching Last administered on 14:39; Admin Dose 25 MG; Start 03/08/17 at 15:00 REY BLACKMON MD Mar 09, 2017 17:25
[2017-03-09] MEDS: QUETIAPINE 100 MG TAB PO SCH (20:33)
[2017-03-09 23:03] VITALS: BP 102/63; RESP 20
[2017-03-10] MEDS: DIPHENHYDRAMINE 50 MG INJ IV PRN ×4 (02:32→21:54)
[2017-03-10] MEDS: morphine 2 MG INJ IV PRN ×6 (02:32→22:15)
[2017-03-10] MEDS: PANTOPRAZOLE (EC) 40 MG TAB PO SCH (05:42)
[2017-03-10 08:05] VITALS: BP 94/54; RESP 18
[2017-03-10] MEDS: HEPARIN 5,000 UNIT/0.5 ML VIAL SC SCH ×2 (08:27→20:19)
[2017-03-10] MEDS: LEVETIRACETAM 500 MG TAB PO SCH ×2 (08:28→20:18)
--- NOTE | 2017-03-10 13:55 | PN ---
Date/Time of Note Date/Time of Note DATE: 03/10/17 TIME: 13:50 Assessment/Plan VTE Prophylaxis VTE Prophylaxis Intervention: heparin Lines/Catheters IV Catheter Type (from Nrsg): PICC Line Central line still needed: Yes Urinary Cath still in place: No Assessment/Plan Assessment/Plan 1. Dizzy on standing but not orthostatic on blood pressure check, continue physical therapy 2. Right shoulder sprain, fall on 03/02/2017, unremarkable MRI, pain management 3. S/o hypotension and bradycardia, drug-related, improved 4. History of spinal tumor. 5. History of seizure. 6 History of depression/anxiety. 7 Chronic pain. 8. History of pulmonary aspergillosis. 9. DVT prophylaxis: heparin Subjective 24 Hr Interval Summary Free Text/Dictation right shoulder pain. Dizzy on standing Exam/Review of Systems Vital Signs Vitals Vital Signs Date Time Temp Pulse Resp B/P Pulse Ox O2 Delivery O2 Flow Rate FiO2 03/10/17 08:05 98.6 87 18 94/54 97 03/07/17 21:13 21 Intake and Output 03/09/17 03/09/17 03/10/17 15:00 23:00 07:00 Intake Total 775 ml 460 ml Balance 775 ml 460 ml Exam Constitutional: alert, oriented, well developed Head: atraumatic, normocephalic Eyes: EOMI, PERRL, nl conjunctiva, nl lids ENMT: nl external ears & nose, nl lips & teeth, nl nasal mucosa & septum Neck: non-tender, supple Respiratory: clear to auscultation, No congested cough, No crackles/rales, No diminished breath sounds, No intercostal retraction, No labored breathing, No normal air movement, No other, No respirations, No tactile fremitus, No wheezing Cardiovascular: nl pulses, regular rate and rhythm, No S3, No S4, No bruits, No diastolic murmur, No edema, No gallop, No irregular rhythm, No jugular venous distention (JVD), No murmurs/extra sounds, No other, No rub, No systolic murmur Gastrointestinal: nl liver, spleen, non-tender, soft, No ascites, No bowel sounds, No distended, No firm, No hepatomegaly, No mass , No other, No rebound or guarding, No splenomegaly, No surgical scars, No tender Musculoskeletal: nl extremities to inspection, other (right shoulder painon movement) Extremities: normal pulses, No calf tenderness, No clubbing, No cyanosis, No edema, No other, No palpable cord, No pitting pedal edema, No tenderness Neurological: SQL DATABASE PROGRAMMER II-XII intact, nl mental status, nl speech, nl strength Skin: nl turgor Lymph: nl lymph nodes Medications Medications Current Medications Acetaminophen (Tylenol Tab) 650 mg Q6H PRN PO PAIN LEVEL 1-3 OR FEVER Last administered on 03/04/17 21:33; Admin Dose 650 MG; Start 02/25/17 at 18:00 Docusate Sodium (Colace) 100 mg Q12H PRN PO CONSTIPATION Last administered on 10:10; Admin Dose 100 MG; Start 02/25/17 at 18:00 Magnesium Hydroxide (Milk Of Mag) 30 ml DAILY PRN PO CONSTIPATION Last administered on 02/27/17 10:10; Admin Dose 30 ML; Start 02/25/17 at 18:00 Sodium Biphosphate/ Sodium Phosphate (Fleet Enema) 133 ml DAILY PRN [place]STIPATION; Start 02/25/17 at 18:00 Pantoprazole (Protonix Tab) 40 mg DAILY@06 PO Last administered on 03/10/17 05: 42; Admin Dose 40 MG; Start 02/26/17 at 06:00 Heparin Sodium (Porcine) (Heparin (5000 Units/0.5 ml)) 5,000 unit Q12 SC Last administered on 03/10/17 08:27; Admin Dose 5,000 UNIT; Start 02/25/17 at 21:00 Nitroglycerin (Nitroglycerin (Sl Tab) 0.4 Mg) 1 tab Q5M PRN SL ANGINA; Start at 18:00 Levetiracetam (Keppra) 500 mg BID PO Last administered on 03/10/17 08:28; Admin Dose 500 MG; Start 02/25/17 at 21:00 IV Flush (NS 10 ml) 10 ml PRN PRN IV IV PROTOCOL Last administered on 03/06/17 10:29; Admin Dose 10 ML; Start 02/26/17 at 10:30 Quetiapine Fumarate (Seroquel) 100 mg HS PO Last administered on 03/09/17 20:33 ; Admin Dose 100 MG; Start 02/26/17 at 21:30 Fentanyl (Duragesic 50 Mcg/Hr Patch) 1 patch Q72H TRANSDERM Last administered on 03/08/17 22:35; Admin Dose 1 PATCH; Start 02/27/17 at 19:00 Promethazine HCl (Phenergan) 25 mg Q6H PRN PO NAUSEA AND/OR VOMITING Last administered on 03/02/17 11:36; Admin Dose 25 MG; Start 02/27/17 at 19:30 Morphine Sulfate (morphine) 2 mg Q4H PRN IV PAIN Last administered on 03/10/17 10:10; Admin Dose 2 MG; Start 03/04/17 at 22:30 Diphenhydramine HCl (Benadryl) 25 mg Q6H PRN PO ITCHING Last administered on 13:21; Admin Dose 25 MG; Start 03/08/17 at 10:30 Acetaminophen/ Hydrocodone Bitart ([place] (5/325)) 1 tab Q4H PRN PO PAIN Last administered on 03/09/17 20:33; Admin Dose 1 TAB; Start 03/08/17 at 10:30 Diphenhydramine HCl (Benadryl) 25 mg Q6H PRN IV itching Last administered on 08:28; Admin Dose 25 MG; Start 03/08/17 at 15:00 SLY WRIGHT MD Mar 10, 2017 13:55
[2017-03-10 14:00] VITALS: BP 97/56
[2017-03-10 19:46] VITALS: BP 101/57; RESP 18
[2017-03-10] MEDS: QUETIAPINE 100 MG TAB PO SCH (20:18)
[2017-03-11] MEDS: morphine 2 MG INJ IV PRN ×6 (02:41→23:57)
[2017-03-11] MEDS: DIPHENHYDRAMINE 50 MG INJ IV PRN ×4 (03:58→20:40)
[2017-03-11] MEDS: PANTOPRAZOLE (EC) 40 MG TAB PO SCH (05:06)
[2017-03-11 06:08] LABS: ADD SCAN DIFF NO
[2017-03-11 06:13] LABS: BASOPHILS % 0.7 % (0.0-2.0); EOSINOPHILS # 0.2 10^3/ul (0.0-0.5); EOSINOPHILS % 3.3 % (0.0-7.0); HEMATOCRIT 35.8 % (37.0-47.0); HEMOGLOBIN 11.4 g/dl (12.0-16.0); LYMPHOCYTES # 2.6 10^3/ul (0.8-2.9); LYMPHOCYTES % 44.7 % (15.0-51.0); MEAN CORPUSCULAR HEMOGLOBIN 27.8 pg (29.0-33.0); MEAN CORPUSCULAR HGB CONC 31.8 g/dl (32.0-37.0); MEAN CORPUSCULAR VOLUME 87.3 fl (82.0-101.0); MEAN PLATELET VOLUME 10.3 fl (7.4-10.4); MONOCYTE # 0.5 10^3/ul (0.3-0.9); MONOCYTES % 9.5 % (0.0-11.0); NEUTROPHIL # 2.4 10^3/ul (1.6-7.5); NEUTROPHILS % 41.6 % (39.0-77.0); PLATELET COUNT 213 10^3/UL (140-415); RED CELL DISTRIBUTION WIDTH 13.8 % (11.5-14.5); WHITE BLOOD COUNT 5.7 10^3/ul (4.8-10.8)
[2017-03-11 06:49] LABS: CALCIUM 8.8 mg/dl (8.4-10.2); CREATININE 0.59 mg/dl (0.44-1.00); POTASSIUM 4.1 mmol/L (3.5-5.1)
[2017-03-11] MEDS: LEVETIRACETAM 500 MG TAB PO SCH ×2 (08:00→20:03)
[2017-03-11 08:02] VITALS: BP 95/55; RESP 16
[2017-03-11] MEDS: HEPARIN 5,000 UNIT/0.5 ML VIAL SC SCH ×2 (08:08→20:05)
--- NOTE | 2017-03-11 13:03 | PN ---
Date/Time of Note Date/Time of Note DATE: 03/11/17 TIME: 12:58 Assessment/Plan VTE Prophylaxis VTE Prophylaxis Intervention: heparin Lines/Catheters IV Catheter Type (from Nrsg): PICC Line Central line still needed: Yes Urinary Cath still in place: No Assessment/Plan Assessment/Plan 1. Dizzy on standing but not orthostatic on blood pressure check, follow up with physical therapist recommendation 2. Right shoulder sprain, fall on 03/02/2017, unremarkable MRI, pain management 3. S/o hypotension and bradycardia, drug-related, improved 4. History of spinal tumor. 5. History of seizure. 6 History of depression/anxiety. 7 Chronic pain. 8. History of pulmonary aspergillosis. 9. DVT prophylaxis: heparin Subjective 24 Hr Interval Summary Free Text/Dictation not out of bed yet. states awaiting for PT to walk her. Checked orthostatic yesterday, she was not orthostatic. Exam/Review of Systems Vital Signs Vitals Vital Signs Date Time Temp Pulse Resp B/P Pulse Ox O2 Delivery O2 Flow Rate FiO2 03/11/17 08:02 97.7 96 16 95/55 96 03/07/17 21:13 21 Intake and Output 03/10/17 03/10/17 03/11/17 15:00 23:00 07:00 Intake Total 650 ml Balance 650 ml Exam Constitutional: alert, oriented, well developed Head: atraumatic, normocephalic Eyes: EOMI, nl conjunctiva, nl lids ENMT: nl external ears & nose, nl lips & teeth, nl nasal mucosa & septum Neck: non-tender, supple Respiratory: clear to auscultation, normal air movement, No congested cough, No crackles/rales, No diminished breath sounds, No intercostal retraction, No labored breathing, No other, No respirations, No tactile fremitus, No wheezing Cardiovascular: nl pulses, regular rate and rhythm, No S3, No S4, No bruits, No diastolic murmur, No edema, No gallop, No irregular rhythm, No jugular venous distention (JVD), No murmurs/extra sounds, No other, No rub, No systolic murmur Gastrointestinal: nl liver, spleen, non-tender, soft, No ascites, No bowel sounds, No distended, No firm, No hepatomegaly, No mass , No other, No rebound or guarding, No splenomegaly, No surgical scars, No tender Extremities: normal pulses, other (right shoulder pain), No calf tenderness, No clubbing, No cyanosis, No edema, No palpable cord, No pitting pedal edema, No tenderness Neurological: AUTO DETAILER II-XII intact, nl mental status, nl speech, nl strength Skin: nl turgor Lymph: nl lymph nodes Results Result Diagram: 03/11/17 0545 03/11/17 0545 Results 24 hrs Laboratory Tests Test 03/11/17 05:45 White Blood Count 5.7 Red Blood Count 4.10 L Hemoglobin 11.4 L Hematocrit 35.8 L Mean Corpuscular Volume 87.3 Mean Corpuscular Hemoglobin 27.8 L Mean Corpuscular Hemoglobin Concent 31.8 L Red Cell Distribution Width 13.8 Platelet Count 213 Mean Platelet Volume 10.3 Neutrophils % 41.6 Lymphocytes % 44.7 Monocytes % 9.5 Eosinophils % 3.3 Basophils % 0.7 Nucleated Red Blood Cells % 0.0 Neutrophils # 2.4 Lymphocytes # 2.6 Monocytes # 0.5 Eosinophils # 0.2 Basophils # 0.0 Nucleated Red Blood Cells # 0.0 Sodium Level 142 Potassium Level 4.1 Chloride Level 108 Carbon Dioxide Level 25 Anion Gap 13 Blood Urea Nitrogen 20 Creatinine 0.59 Glucose Level 90 Calcium Level 8.8 Medications Medications Current Medications Acetaminophen (Tylenol Tab) 650 mg Q6H PRN PO PAIN LEVEL 1-3 OR FEVER Last administered on 03/04/17 21:33; Admin Dose 650 MG; Start 02/25/17 at 18:00 Docusate Sodium (Colace) 100 mg Q12H PRN PO CONSTIPATION Last administered on 10:10; Admin Dose 100 MG; Start 02/25/17 at 18:00 Magnesium Hydroxide (Milk Of Mag) 30 ml DAILY PRN PO CONSTIPATION Last administered on 02/27/17 10:10; Admin Dose 30 ML; Start 02/25/17 at 18:00 Sodium Biphosphate/ Sodium Phosphate (Fleet Enema) 133 ml DAILY PRN [place] CONSTIPATION; Start 02/25/17 at 18:00 Pantoprazole (Protonix Tab) 40 mg DAILY@06 PO Last administered on 03/11/17 05: 06; Admin Dose 40 MG; Start 02/26/17 at 06:00 Heparin Sodium (Porcine) (Heparin (5000 Units/0.5 ml)) 5,000 unit Q12 SC Last administered on 03/11/17 08:08; Admin Dose 5,000 UNIT; Start 02/25/17 at 21:00 Nitroglycerin (Nitroglycerin (Sl Tab) 0.4 Mg) 1 tab Q5M PRN SL ANGINA; Start at 18:00 Levetiracetam (Keppra) 500 mg BID PO Last administered on 03/11/17 08:00; Admin Dose 500 MG; Start 02/25/17 at 21:00 IV Flush (NS 10 ml) 10 ml PRN PRN IV IV PROTOCOL Last administered on 03/06/17 10:29; Admin Dose 10 ML; Start 02/26/17 at 10:30 Quetiapine Fumarate (Seroquel) 100 mg HS PO Last administered on 03/10/17 20:18 ; Admin Dose 100 MG; Start 02/26/17 at 21:30 Fentanyl (Duragesic 50 Mcg/Hr Patch) 1 patch Q72H TRANSDERM Last administered on 03/08/17 22:35; Admin Dose 1 PATCH; Start 02/27/17 at 19:00 Promethazine HCl (Phenergan) 25 mg Q6H PRN PO NAUSEA AND/OR VOMITING Last administered on 03/02/17 11:36; Admin Dose 25 MG; Start 02/27/17 at 19:30 Morphine Sulfate (morphine) 2 mg Q4H PRN IV PAIN Last administered on 03/11/17 12:11; Admin Dose 2 MG; Start 03/04/17 at 22:30 Diphenhydramine HCl (Benadryl) 25 mg Q6H PRN PO ITCHING Last administered on 13:21; Admin Dose 25 MG; Start 03/08/17 at 10:30 Acetaminophen/ Hydrocodone Bitart ([place] (5/325)) 1 tab Q4H PRN PO PAIN Last administered on 03/09/17 20:33; Admin Dose 1 TAB; Start 03/08/17 at 10:30 Diphenhydramine HCl (Benadryl) 25 mg Q6H PRN IV itching Last administered on 08:01; Admin Dose 25 MG; Start 03/08/17 at 15:00 SLY WRIGHT MD Mar 11, 2017 13:03
[2017-03-11] MEDS: FENTAnyl PATCH 50 MCG/HR TRANSDERM SCH (18:46)
[2017-03-11 19:38] VITALS: BP 98/57; RESP 18
[2017-03-11] MEDS: QUETIAPINE 100 MG TAB PO SCH (20:03)
[2017-03-12] MEDS: DIPHENHYDRAMINE 50 MG INJ IV PRN ×4 (02:39→20:47)
[2017-03-12] MEDS: morphine 2 MG INJ IV PRN ×5 (03:57→20:46)
[2017-03-12] MEDS: PANTOPRAZOLE (EC) 40 MG TAB PO SCH (05:44)
[2017-03-12 07:30] VITALS: BP 90/60; RESP 20
[2017-03-12] MEDS: LEVETIRACETAM 500 MG TAB PO SCH ×2 (08:42→20:45)
[2017-03-12] MEDS: HEPARIN 5,000 UNIT/0.5 ML VIAL SC SCH ×2 (08:45→20:45)
[2017-03-12] MEDS ORDERED: HYDR-906 PO (14:46)
--- NOTE | 2017-03-12 14:58 | DS ---
Date/Time of Note Date/Time of Note DATE: 03/12/17 TIME: 14:46 Discharge Summary Admission/Discharge Info Admit Date/Time February 25, 2017 at 14:49 Discharge Date/Time Final Diagnosis 1. S/o hypotension and bradycardia, drug-related, improved, resolved 2. Right shoulder sprain, fall on 03/02/2017, unremarkable MRI, pain management, follow up with Dr. Hawkins 3. History of spinal tumor. 4. History of seizure, on keppra 5 History of depression/anxiety, follow up with PCP 6 Chronic pain. 7. History of pulmonary aspergillosis. Patient Condition: Stable Procedures [place] [address] Radiology Main Line: [phone] DIAGNOSTIC IMAGING REPORT Patient: SHASHI LOWERY : 1970 Age: 46 Sex: F MR #: [id number] DOS: 03/04/17 0000 Ordering MD: SHARI MONGE MD Location: [facility] [place] Room/Bed: [facility] PROCEDURE: MRI OF THE RIGHT SHOULDER CLINICAL INDICATION: The patient fell. Right shoulder pain. TECHNIQUE: MRI images of the right shoulder were obtained utilizing multiple sequences in multiple planes. Images were interpreted on high-resolution PACS system. COMPARISON: none . FINDINGS: Osseous acromion outlet: The acromion is type 2. Coronal images demonstrate moderate lateral downsloping. The AC joint is unremarkable. Rotator Cuff: There is a strain of the critical zone and insertion of the supraspinatus tendon anteriorly seen on coronal images 9-11. There is minimal critical zone articular surface partial tearing. There is also bursitis and there is reactive edema within the adjacent greater tuberosity. The subscapularis tendon is intact. Labral and capsular structures: There is either capsulitis or capsular sprain seen anteriorly on coronal image number 11. No detachment is seen. Biceps tendon and anchor: There is fraying of the biceps anchor. No evidence for biceps dislocation, subluxation or rupture. Osseous structures: There is bone marrow edema within the greater tuberosity both anteriorly and posteriorly seen on axial image number 11. Findings are consistent with reactive edema secondary to rotator cuff tendinopathy and capsulitis versus contusion. Other findings: The suprascapular and spinoglenoid notch appear normal. No mass identified. IMPRESSION: 1. Strain of the critical zone and insertion of the supraspinatus tendon with minimal articular surface partial tearing. 2. Capsulitis versus capsular sprain. 3. Bone marrow edema within the greater tuberosity is most likely reactive and secondary to rotator cuff tendinopathy and capsulitis versus contusion. No cortical fracture Is seen. 4. Fraying of the biceps anchor. Hx of Present Illness The patient is a 46-year-old female with a history of spinal tumor, seizure, anxiety, dermatitis, pulmonary aspergillosis who was sent from the clinic after she had a syncopal episode. The patient was at the Pain Clinic when she felt dizzy. Blood pressure reportedly at that time shows a systolic blood pressure in the low 70s. The patient continues to feel dizzy with generalized weakness, and reportedly had an episode of syncope or near syncope. She was then sent to the ER for further evaluation. The patient's main complaint at this time is generalized body pain, especially back pain as well as headache and nausea. When the patient presented to the ER, blood pressure was 95/71, heart rate 53, respiratory rate 14, temperature 98.5, oxygen saturation 98% on room air. She then became progressively bradycardic, and since presentation to the ER, her heart rate has remained in the 30s with the lowest documented being 34. Her systolic blood pressure for the most part has been in the low 100s as well as in the 90s. Laboratory value shows a normal CBC and BMP, and her troponins have been negative. Chest x-ray shows no acute cardiopulmonary disease. EKG shows sinus bradycardia, no heart block was noted. Hospital Course The sinus bradycardia is considered narcotics and clonidine related. Patient's hypotension and bradycardia resolved after adjustment of pain medications and discontinuation of clonidine. She is not orthostatic on orthostatic check. Patient fell and hurt her right shoulder on 03/02/2017 that she had a MRI showed strain of the critical zone and insertion of the supraspinatus tendon with minimal articular surface partial tearing; capsulitis versus capsular sprain; bone marrow edema within the greater tuberosity is most likely reactive and secondary to rotator cuff tendinopathy and capsulitis versus contusion. No cortical fracture Is seen; and fraying of the biceps anchor. Consultation with orthopedics Dr. Hawkins who recommends medical management with 1. Temporary protection in a sling. 2. Consider possible subacromial space injection with steroid. 3. Avoid any position or activities that cause pain in order to prevent further worsening of the symptoms. Patient will follow up with Dr. Hawkins outpatient in one week. Home Meds Active Scripts Hydrocodone/Acetaminophen ([place] 5-325 Tablet) 1 Each Tablet, 1 EACH PO Q4H, # 20 TAB Prov:SLY WRIGHT MD 03/12/17 Reported Medications Levetiracetam* (Keppra*) 500 Mg Tablet, 500 MG PO BID, TAB 02/25/17 Diazepam* (Diazepam*) 10 Mg Tablet, 10 MG PO QHS, TAB 01/06/15 Quetiapine Fumarate* (Seroquel*) 400 Mg Tablet, 400 MG PO HS, TAB 01/06/15 Follow-up Plan follow up with PCP in one week Dr. Hawkins in one week home with home PT Primary Care Provider MD ADRIANA Da Silva MAOGANG MD Mar 12, 2017 14:56
[2017-03-12] MEDS: QUETIAPINE 100 MG TAB PO SCH (20:45)
[2017-03-12 20:50] VITALS: BP 100/61; RESP 18; RESP 90
[2017-03-13] MEDS: morphine 2 MG INJ IV PRN ×6 (00:44→21:23)
[2017-03-13] MEDS: DIPHENHYDRAMINE 50 MG INJ IV PRN ×4 (02:56→22:01)
[2017-03-13] MEDS: PANTOPRAZOLE (EC) 40 MG TAB PO SCH (05:08)
[2017-03-13 07:45] VITALS: BP 102/64; RESP 18
[2017-03-13] MEDS: LEVETIRACETAM 500 MG TAB PO SCH ×2 (08:19→20:44)
[2017-03-13] MEDS: HEPARIN 5,000 UNIT/0.5 ML VIAL SC SCH ×2 (08:20→20:52)
--- NOTE | 2017-03-13 17:17 | PN ---
Date/Time of Note Date/Time of Note DATE: 03/13/17 TIME: 17:14 Assessment/Plan VTE Prophylaxis VTE Prophylaxis Intervention: SCD's Lines/Catheters IV Catheter Type (from Nrsg): PICC Line Central line still needed: Yes Urinary Cath still in place: No Assessment/Plan Chief Complaint/Hosp Course 1. Blood in stool per patient, GI consultation with Dr. Wade 2. Right shoulder sprain, fall on 03/02/2017, unremarkable MRI, pain management 3. S/o hypotension and bradycardia, drug-related, improved 4. History of spinal tumor. 5. History of seizure. 6 History of depression/anxiety. 7 Chronic pain. 8. History of pulmonary aspergillosis. Problems: Subjective 24 Hr Interval Summary Free Text/Dictation state had blood in stool twice since last night. some lower abdominal discomfort Exam/Review of Systems Vital Signs Vitals Vital Signs Date Time Temp Pulse Resp B/P Pulse Ox O2 Delivery O2 Flow Rate FiO2 03/13/17 07:45 98.2 96 18 102/64 96 Intake and Output 03/12/17 03/12/17 03/13/17 15:00 23:00 07:00 Intake Total 720 ml 800 ml Balance 720 ml 800 ml Exam Constitutional: alert, oriented, well developed Psych: nl mood/affect, no complaints Head: atraumatic, normocephalic Eyes: EOMI, PERRL, nl conjunctiva, nl lids ENMT: nl external ears & nose, nl lips & teeth, nl nasal mucosa & septum Neck: non-tender, supple Respiratory: clear to auscultation, normal air movement, No congested cough, No crackles/rales, No diminished breath sounds, No intercostal retraction, No labored breathing, No other, No respirations, No tactile fremitus, No wheezing Cardiovascular: nl pulses, regular rate and rhythm, No S3, No S4, No bruits, No diastolic murmur, No edema, No gallop, No irregular rhythm, No jugular venous distention (JVD), No murmurs/extra sounds, No other, No rub, No systolic murmur Gastrointestinal: nl liver, spleen, soft, No ascites, No bowel sounds, No distended, No firm, No hepatomegaly, No mass , No other, No rebound or guarding, No splenomegaly, No surgical scars Musculoskeletal: other (right shoulder pain) Extremities: normal pulses, No calf tenderness, No clubbing, No cyanosis, No edema, No other, No palpable cord, No pitting pedal edema, No tenderness Neurological: SENIOR PIPING DESIGNER II-XII intact, nl mental status, nl speech, nl strength Skin: nl turgor Lymph: nl lymph nodes Results Result Diagram: 03/11/1754403/11/1745 Medications Medications Current Medications Acetaminophen (Tylenol Tab) 650 mg Q6H PRN PO PAIN LEVEL 1-3 OR FEVER Last administered on 03/04/17 21:33; Admin Dose 650 MG; Start 02/25/17 at 18:00 Docusate Sodium (Colace) 100 mg Q12H PRN PO CONSTIPATION Last administered on 10:10; Admin Dose 100 MG; Start 02/25/17 at 18:00 Magnesium Hydroxide (Milk Of Mag) 30 ml DAILY PRN PO CONSTIPATION Last administered on 02/27/17 10:10; Admin Dose 30 ML; Start 02/25/17 at 18:00 Sodium Biphosphate/ Sodium Phosphate (Fleet Enema) 133 ml DAILY PRN [place] CONSTIPATION; Start 02/25/17 at 18:00 Pantoprazole (Protonix Tab) 40 mg DAILY@06 PO Last administered on 03/13/17 05: 08; Admin Dose 40 MG; Start 02/26/17 at 06:00 Heparin Sodium (Porcine) (Heparin (5000 Units/0.5 ml)) 5,000 unit Q12 SC Last administered on 03/12/17 20:45; Admin Dose 5,000 UNIT; Start 02/25/17 at 21:00 Nitroglycerin (Nitroglycerin (Sl Tab) 0.4 Mg) 1 tab Q5M PRN SL ANGINA; Start at 18:00 Levetiracetam (Keppra) 500 mg BID PO Last administered on 03/13/17 08:19; Admin Dose 500 MG; Start 02/25/17 at 21:00 IV Flush (NS 10 ml) 10 ml PRN PRN IV IV PROTOCOL Last administered on 03/13/17 09:00; Admin Dose 10 ML; Start 02/26/17 at 10:30 Quetiapine Fumarate (Seroquel) 100 mg HS PO Last administered on 03/12/17 20:45 ; Admin Dose 100 MG; Start 02/26/17 at 21:30 Fentanyl (Duragesic 50 Mcg/Hr Patch) 1 patch Q72H TRANSDERM Last administered on 03/11/17 18:46; Admin Dose 1 PATCH; Start 02/27/17 at 19:00 Promethazine HCl (Phenergan) 25 mg Q6H PRN PO NAUSEA AND/OR VOMITING Last administered on 03/02/17 11:36; Admin Dose 25 MG; Start 02/27/17 at 19:30 Morphine Sulfate (morphine) 2 mg Q4H PRN IV PAIN Last administered on 03/13/17 17:05; Admin Dose 2 MG; Start 03/04/17 at 22:30 Diphenhydramine HCl (Benadryl) 25 mg Q6H PRN PO ITCHING Last administered on 13:21; Admin Dose 25 MG; Start 03/08/17 at 10:30 Acetaminophen/ Hydrocodone Bitart ([place] (5/325)) 1 tab Q4H PRN PO PAIN Last administered on 03/09/17 20:33; Admin Dose 1 TAB; Start 03/08/17 at 10:30 Diphenhydramine HCl (Benadryl) 25 mg Q6H PRN IV itching Last administered on 15:02; Admin Dose 25 MG; Start 03/08/17 at 15:00 SLY WRIGHT MD Mar 13, 2017 17:17
[2017-03-13 20:23] VITALS: BP 108/58; RESP 83
[2017-03-13] MEDS: QUETIAPINE 100 MG TAB PO SCH (20:44)
[2017-03-14] MEDS: morphine 2 MG INJ IV PRN ×6 (01:23→21:36)
[2017-03-14] MEDS: DIPHENHYDRAMINE 50 MG INJ IV PRN ×4 (04:02→21:36)
[2017-03-14] MEDS: PANTOPRAZOLE (EC) 40 MG TAB PO SCH (05:28)
[2017-03-14 05:59] LABS: ADD SCAN DIFF NO
[2017-03-14 06:08] LABS: BASOPHIL # 0.1 10^3/ul (0.0-0.1); BASOPHILS % 0.9 % (0.0-2.0); EOSINOPHILS # 0.2 10^3/ul (0.0-0.5); EOSINOPHILS % 3.1 % (0.0-7.0); HEMATOCRIT 33.1 % (37.0-47.0); HEMOGLOBIN 10.6 g/dl (12.0-16.0); LYMPHOCYTES # 2.1 10^3/ul (0.8-2.9); LYMPHOCYTES % 38.6 % (15.0-51.0); MEAN CORPUSCULAR HEMOGLOBIN 27.5 pg (29.0-33.0); MEAN PLATELET VOLUME 10.6 fl (7.4-10.4); MONOCYTE # 0.5 10^3/ul (0.3-0.9); MONOCYTES % 8.6 % (0.0-11.0); NEUTROPHIL # 2.7 10^3/ul (1.6-7.5); NEUTROPHILS % 48.8 % (39.0-77.0); PLATELET COUNT 205 10^3/UL (140-415); RED BLOOD COUNT 3.85 10^6/ul (4.20-5.40); RED CELL DISTRIBUTION WIDTH 13.7 % (11.5-14.5); WHITE BLOOD COUNT 5.6 10^3/ul (4.8-10.8)
[2017-03-14 06:29] LABS: CREATININE 0.61 mg/dl (0.44-1.00)
[2017-03-14 07:50] VITALS: BP 94/62; RESP 20
[2017-03-14] MEDS: LEVETIRACETAM 500 MG TAB PO SCH ×2 (08:03→21:02)
[2017-03-14] MEDS: HEPARIN 5,000 UNIT/0.5 ML VIAL SC SCH ×2 (08:03→20:28)
--- NOTE | 2017-03-14 11:46 | CONS ---
Date/Time of Note Date/Time of Note DATE: 03/14/17 TIME: 11:28 Assessment/Plan Assessment/Plan Additional Assessment/Plan Assessment * Anemia/Hematochezia Lower GI bleed vs upper gi bleed vs others * Right shoulder sprain * History of seizures * S?P Hypotension/bradycardia improved Plan * Stool for occult blood determination x3 * EGD and colonoscopy risks and benefit explained to patient and agreed with the planned procedure Consultation Date/Type/Reason Admit Date/Time February 25, 2017 at 14:49 Date of Consultation: Mar 14, 2017 Type of Consultation: Gastroenterology Reason for Consultation hematochezia Hx of Present Illness 46 year old female referred because of hematochezia.Present condition started yesterday as fresh blood per rectum about 2 tablespoons per episode,denies any abdominal; pain,vomiting,chest pain ,shortness of breath,hematemesis nor syncopal episodes.Latest hemoglobin 10.6. Past medical history includes seizure disorder,pulmonary aspergillosis,spinal tumor,depression anxiety,chronic pain. I have discussed with the patient the possible causes of hematochezia and the plan to do EGD and colonoscopy to determine the cause.she agreed with the planned procedure Respiratory: cough Cardiovascular: chest pain Musculoskeletal: no complaints Skin: no complaints Neurologic: no complaints Psychological: nl mood/affect, no complaints Past Medical History Medical History: other (spinal tumor,seizure) Past Surgical History Past Surgical Hx: no surgical history Family History Significant Family History: no pertinent family hx Social History Alcohol Use: none Smoking Status: Former smoker Exam/Review of Systems Vital Signs Vitals Vital Signs Date Time Temp Pulse Resp B/P Pulse Ox O2 Delivery O2 Flow Rate FiO2 03/14/17 07:50 98.6 94 20 94/62 96 Intake and Output 03/13/17 03/13/17 03/14/17 15:00 23:00 07:00 Intake Total 720 ml 680 ml Balance 720 ml 680 ml Exam Constitutional: alert, oriented, well developed Psych: nl mood/affect, no complaints Head: atraumatic, normocephalic Eyes: PERRL, nl conjunctiva, nl sclera Neck: non-tender, supple Respiratory: clear to auscultation, normal air movement Cardiovascular: nl pulses, regular rate and rhythm Gastrointestinal: nl liver, spleen, non-tender, soft Musculoskeletal: nl extremities to inspection, nl gait and stance, range of motion (limited motion right shoulder) Extremities: normal pulses Neurological: SWEAT BAND SEPARATOR II-XII intact, nl mental status, nl speech, nl strength Skin: nl turgor, No rash or lesions Lymph: nl lymph nodes Results Result Diagram: 03/14/172 03/14/17 0432 Results 24 hrs Laboratory Tests Test 03/14/17 04:32 White Blood Count 5.6 Red Blood Count 3.85 L Hemoglobin 10.6 L Hematocrit 33.1 L Mean Corpuscular Volume 86.0 Mean Corpuscular Hemoglobin 27.5 L Mean Corpuscular Hemoglobin Concent 32.0 Red Cell Distribution Width 13.7 Platelet Count 205 Mean Platelet Volume 10.6 H Neutrophils % 48.8 Lymphocytes % 38.6 Monocytes % 8.6 Eosinophils % 3.1 Basophils % 0.9 Nucleated Red Blood Cells % 0.0 Neutrophils # 2.7 Lymphocytes # 2.1 Monocytes # 0.5 Eosinophils # 0.2 Basophils # 0.1 Nucleated Red Blood Cells # 0.0 Sodium Level 143 Potassium Level 4.0 Chloride Level 111 H Carbon Dioxide Level 26 Anion Gap 10 Blood Urea Nitrogen 15 Creatinine 0.61 Glucose Level 84 Calcium Level 9.0 Medications Medications Current Medications Acetaminophen (Tylenol Tab) 650 mg Q6H PRN PO PAIN LEVEL 1-3 OR FEVER Last administered on 03/04/17 21:33; Admin Dose 650 MG; Start 02/25/17 at 18:00 Docusate Sodium (Colace) 100 mg Q12H PRN PO CONSTIPATION Last administered on 10:10; Admin Dose 100 MG; Start 02/25/17 at 18:00 Magnesium Hydroxide (Milk Of Mag) 30 ml DAILY PRN PO CONSTIPATION Last administered on 02/27/17 10:10; Admin Dose 30 ML; Start 02/25/17 at 18:00 Sodium Biphosphate/ Sodium Phosphate (Fleet Enema) 133 ml DAILY PRN [place] CONSTIPATION; Start 02/25/17 at 18:00 Pantoprazole (Protonix Tab) 40 mg DAILY@06 PO Last administered on 03/14/17 05: 28; Admin Dose 40 MG; Start 02/26/17 at 06:00 Heparin Sodium (Porcine) (Heparin (5000 Units/0.5 ml)) 5,000 unit Q12 SC Last administered on 03/12/17 20:45; Admin Dose 5,000 UNIT; Start 02/25/17 at 21:00 Nitroglycerin (Nitroglycerin (Sl Tab) 0.4 Mg) 1 tab Q5M PRN SL ANGINA; Start at 18:00 Levetiracetam (Keppra) 500 mg BID PO Last administered on 03/14/17 08:03; Admin Dose 500 MG; Start 02/25/17 at 21:00 IV Flush (NS 10 ml) 10 ml PRN PRN IV IV PROTOCOL Last administered on 03/13/17 09:00; Admin Dose 10 ML; Start 02/26/17 at 10:30 Quetiapine Fumarate (Seroquel) 100 mg HS PO Last administered on 03/13/17 20:44 ; Admin Dose 100 MG; Start 02/26/17 at 21:30 Fentanyl (Duragesic 50 Mcg/Hr Patch) 1 patch Q72H TRANSDERM Last administered on 03/11/17 18:46; Admin Dose 1 PATCH; Start 02/27/17 at 19:00 Promethazine HCl (Phenergan) 25 mg Q6H PRN PO NAUSEA AND/OR VOMITING Last administered on 03/02/17 11:36; Admin Dose 25 MG; Start 02/27/17 at 19:30 Morphine Sulfate (morphine) 2 mg Q4H PRN IV PAIN Last administered on 03/14/17 10:00; Admin Dose 2 MG; Start 03/04/17 at 22:30 Diphenhydramine HCl (Benadryl) 25 mg Q6H PRN PO ITCHING Last administered on 13:21; Admin Dose 25 MG; Start 03/08/17 at 10:30 Acetaminophen/ Hydrocodone Bitart ([place] (5/325)) 1 tab Q4H PRN PO PAIN Last administered on 03/09/17 20:33; Admin Dose 1 TAB; Start 03/08/17 at 10:30 Diphenhydramine HCl (Benadryl) 25 mg Q6H PRN IV itching Last administered on 09:52; Admin Dose 25 MG; Start 03/08/17 at 15:00 RENALDO SHELTON MD Mar 14, 2017 11:39
--- NOTE | 2017-03-14 12:54 | CONS ---
Date/Time of Note Date/Time of Note DATE: 03/14/17 TIME: 12:50 Assessment/Plan Assessment/Plan Additional Assessment/Plan Sinus bradycardia-resolved Rectal bleeding Preserved ejection fraction Chronic pain on narcotics Spinal pathology -Heart rate trend on vital signs appear stable. Would continue to hold any antihypertensives. No new cardiac orders at the current time. Consultation Date/Type/Reason Admit Date/Time February 25, 2017 at 14:49 Type of Consultation: cv 24 HR Interval Summary Free Text/Dictation Patient complains of occasional lightheadedness with standing up. Denies shortness of breath or dizziness or lightheadedness at rest. Patient complaining of rectal bleeding and awaiting GI procedure Exam/Review of Systems Vital Signs Vitals Vital Signs Date Time Temp Pulse Resp B/P Pulse Ox O2 Delivery O2 Flow Rate FiO2 03/14/17 07:50 98.6 94 20 94/62 96 Intake and Output 03/13/17 03/13/17 03/14/17 15:00 23:00 07:00 Intake Total 720 ml 680 ml Balance 720 ml 680 ml Exam No apparent distress Constitutional: alert, oriented Head: normocephalic Respiratory: other (Coarse breath sounds bilaterally, no wheezing) Cardiovascular: other (S1-S2 heard), regular rate and rhythm Gastrointestinal: bowel sounds, non-tender, soft Extremities: other (No edema) Results Result Diagram: 03/14/17 0432 03/14/17 0432 Results 24 hrs Laboratory Tests Test 03/14/17 04:32 White Blood Count 5.6 Red Blood Count 3.85 L Hemoglobin 10.6 L Hematocrit 33.1 L Mean Corpuscular Volume 86.0 Mean Corpuscular Hemoglobin 27.5 L Mean Corpuscular Hemoglobin Concent 32.0 Red Cell Distribution Width 13.7 Platelet Count 205 Mean Platelet Volume 10.6 H Neutrophils % 48.8 Lymphocytes % 38.6 Monocytes % 8.6 Eosinophils % 3.1 Basophils % 0.9 Nucleated Red Blood Cells % 0.0 Neutrophils # 2.7 Lymphocytes # 2.1 Monocytes # 0.5 Eosinophils # 0.2 Basophils # 0.1 Nucleated Red Blood Cells # 0.0 Sodium Level 143 Potassium Level 4.0 Chloride Level 111 H Carbon Dioxide Level 26 Anion Gap 10 Blood Urea Nitrogen 15 Creatinine 0.61 Glucose Level 84 Calcium Level 9.0 Medications Medications Current Medications Acetaminophen (Tylenol Tab) 650 mg Q6H PRN PO PAIN LEVEL 1-3 OR FEVER Last administered on 03/04/17 21:33; Admin Dose 650 MG; Start 02/25/17 at 18:00 Docusate Sodium (Colace) 100 mg Q12H PRN PO CONSTIPATION Last administered on 10:10; Admin Dose 100 MG; Start 02/25/17 at 18:00 Magnesium Hydroxide (Milk Of Mag) 30 ml DAILY PRN PO CONSTIPATION Last administered on 02/27/17 10:10; Admin Dose 30 ML; Start 02/25/17 at 18:00 Sodium Biphosphate/ Sodium Phosphate (Fleet Enema) 133 ml DAILY PRN [place] CONSTIPATION; Start 02/25/17 at 18:00 Pantoprazole (Protonix Tab) 40 mg DAILY@06 PO Last administered on 03/14/17 05: 28; Admin Dose 40 MG; Start 02/26/17 at 06:00 Heparin Sodium (Porcine) (Heparin (5000 Units/0.5 ml)) 5,000 unit Q12 SC Last administered on 03/12/17 20:45; Admin Dose 5,000 UNIT; Start 02/25/17 at 21:00 Nitroglycerin (Nitroglycerin (Sl Tab) 0.4 Mg) 1 tab Q5M PRN SL ANGINA; Start at 18:00 Levetiracetam (Keppra) 500 mg BID PO Last administered on 03/14/17 08:03; Admin Dose 500 MG; Start 02/25/17 at 21:00 IV Flush (NS 10 ml) 10 ml PRN PRN IV IV PROTOCOL Last administered on 03/13/17 09:00; Admin Dose 10 ML; Start 02/26/17 at 10:30 Quetiapine Fumarate (Seroquel) 100 mg HS PO Last administered on 03/13/17 20:44 ; Admin Dose 100 MG; Start 02/26/17 at 21:30 Fentanyl (Duragesic 50 Mcg/Hr Patch) 1 patch Q72H TRANSDERM Last administered on 03/11/17 18:46; Admin Dose 1 PATCH; Start 02/27/17 at 19:00 Promethazine HCl (Phenergan) 25 mg Q6H PRN PO NAUSEA AND/OR VOMITING Last administered on 03/02/17 11:36; Admin Dose 25 MG; Start 02/27/17 at 19:30 Morphine Sulfate (morphine) 2 mg Q4H PRN IV PAIN Last administered on 03/14/17 10:00; Admin Dose 2 MG; Start 03/04/17 at 22:30 Diphenhydramine HCl (Benadryl) 25 mg Q6H PRN PO ITCHING Last administered on 13:21; Admin Dose 25 MG; Start 03/08/17 at 10:30 Acetaminophen/ Hydrocodone Bitart ([place] (5/325)) 1 tab Q4H PRN PO PAIN Last administered on 03/09/17 20:33; Admin Dose 1 TAB; Start 03/08/17 at 10:30 Diphenhydramine HCl (Benadryl) 25 mg Q6H PRN IV itching Last administered on 09:52; Admin Dose 25 MG; Start 03/08/17 at 15:00 Brayden Ramirez DO Mar 14, 2017 12:53
[2017-03-14] MEDS: NACL 0.9% 3 ML SYG IV SCH (13:43)
[2017-03-14] MEDS ORDERED: BISACODYL (EC) 5 MG TAB PO ONE (15:00)
[2017-03-14] MEDS: BISACODYL (EC) 5 MG TAB PO ONE ×2 (15:45→23:50)
--- NOTE | 2017-03-14 16:10 | PN ---
Date/Time of Note Date/Time of Note DATE: 03/14/17 TIME: 16:09 Assessment/Plan VTE Prophylaxis VTE Prophylaxis Intervention: SCD's Lines/Catheters IV Catheter Type (from Nrsg): PICC Line Central line still needed: Yes Urinary Cath still in place: No Assessment/Plan Chief Complaint/Hosp Course 1. Blood in stool per patient, GI consultation with Dr. Wade 2. Right shoulder sprain, fall on 03/02/2017, unremarkable MRI, pain management 3. S/o hypotension and bradycardia, drug-related, improved 4. History of spinal tumor. 5. History of seizure. 6 History of depression/anxiety. 7 Chronic pain. 8. History of pulmonary aspergillosis. Problems: Subjective 24 Hr Interval Summary Free Text/Dictation no more bloody stool. no abdominal pain. Exam/Review of Systems Vital Signs Vitals Vital Signs Date Time Temp Pulse Resp B/P Pulse Ox O2 Delivery O2 Flow Rate FiO2 03/14/17 07:50 98.6 94 20 94/62 96 Intake and Output 03/13/17 03/13/17 03/14/17 15:00 23:00 07:00 Intake Total 720 ml 680 ml Balance 720 ml 680 ml Exam Constitutional: alert, oriented, well developed Psych: nl mood/affect, no complaints Head: atraumatic, normocephalic Eyes: EOMI, PERRL, nl conjunctiva, nl lids ENMT: nl external ears & nose, nl lips & teeth, nl nasal mucosa & septum Neck: non-tender, supple Respiratory: clear to auscultation, normal air movement, No congested cough, No crackles/rales, No diminished breath sounds, No intercostal retraction, No labored breathing, No other, No respirations, No tactile fremitus, No wheezing Cardiovascular: nl pulses, regular rate and rhythm, No S3, No S4, No bruits, No diastolic murmur, No edema, No gallop, No irregular rhythm, No jugular venous distention (JVD), No murmurs/extra sounds, No other, No rub, No systolic murmur Gastrointestinal: nl liver, spleen, non-tender, soft, No ascites, No bowel sounds, No distended, No firm, No hepatomegaly, No mass , No other, No rebound or guarding, No splenomegaly, No surgical scars, No tender Musculoskeletal: nl extremities to inspection Extremities: normal pulses, No calf tenderness, No clubbing, No cyanosis, No edema, No other, No palpable cord, No pitting pedal edema, No tenderness Neurological: ATHLETIC TRAINER II-XII intact, nl mental status, nl speech, nl strength Skin: nl turgor Lymph: nl lymph nodes Results Result Diagram: 03/14/17 0432 03/14/17 0432 Results 24 hrs Laboratory Tests Test 03/14/17 04:32 White Blood Count 5.6 Red Blood Count 3.85 L Hemoglobin 10.6 L Hematocrit 33.1 L Mean Corpuscular Volume 86.0 Mean Corpuscular Hemoglobin 27.5 L Mean Corpuscular Hemoglobin Concent 32.0 Red Cell Distribution Width 13.7 Platelet Count 205 Mean Platelet Volume 10.6 H Neutrophils % 48.8 Lymphocytes % 38.6 Monocytes % 8.6 Eosinophils % 3.1 Basophils % 0.9 Nucleated Red Blood Cells % 0.0 Neutrophils # 2.7 Lymphocytes # 2.1 Monocytes # 0.5 Eosinophils # 0.2 Basophils # 0.1 Nucleated Red Blood Cells # 0.0 Sodium Level 143 Potassium Level 4.0 Chloride Level 111 H Carbon Dioxide Level 26 Anion Gap 10 Blood Urea Nitrogen 15 Creatinine 0.61 Glucose Level 84 Calcium Level 9.0 Medications Medications Current Medications Acetaminophen (Tylenol Tab) 650 mg Q6H PRN PO PAIN LEVEL 1-3 OR FEVER Last administered on 03/04/17 21:33; Admin Dose 650 MG; Start 02/25/17 at 18:00 Docusate Sodium (Colace) 100 mg Q12H PRN PO CONSTIPATION Last administered on 10:10; Admin Dose 100 MG; Start 02/25/17 at 18:00 Magnesium Hydroxide (Milk Of Mag) 30 ml DAILY PRN PO CONSTIPATION Last administered on 02/27/17 10:10; Admin Dose 30 ML; Start 02/25/17 at 18:00 Sodium Biphosphate/ Sodium Phosphate (Fleet Enema) 133 ml DAILY PRN [place] CONSTIPATION; Start 02/25/17 at 18:00 Pantoprazole (Protonix Tab) 40 mg DAILY@06 PO Last administered on 03/14/17 05: 28; Admin Dose 40 MG; Start 02/26/17 at 06:00 Heparin Sodium (Porcine) (Heparin (5000 Units/0.5 ml)) 5,000 unit Q12 SC Last administered on 03/12/17 20:45; Admin Dose 5,000 UNIT; Start 02/25/17 at 21:00 Nitroglycerin (Nitroglycerin (Sl Tab) 0.4 Mg) 1 tab Q5M PRN SL ANGINA; Start at 18:00 Levetiracetam (Keppra) 500 mg BID PO Last administered on 03/14/17 08:03; Admin Dose 500 MG; Start 02/25/17 at 21:00 IV Flush (NS 10 ml) 10 ml PRN PRN IV IV PROTOCOL Last administered on 03/13/17 09:00; Admin Dose 10 ML; Start 02/26/17 at 10:30 Quetiapine Fumarate (Seroquel) 100 mg HS PO Last administered on 03/13/17 20:44 ; Admin Dose 100 MG; Start 02/26/17 at 21:30 Fentanyl (Duragesic 50 Mcg/Hr Patch) 1 patch Q72H TRANSDERM Last administered on 03/11/17 18:46; Admin Dose 1 PATCH; Start 02/27/17 at 19:00 Promethazine HCl (Phenergan) 25 mg Q6H PRN PO NAUSEA AND/OR VOMITING Last administered on 03/02/17 11:36; Admin Dose 25 MG; Start 02/27/17 at 19:30 Morphine Sulfate (morphine) 2 mg Q4H PRN IV PAIN Last administered on 03/14/17 13:43; Admin Dose 2 MG; Start 03/04/17 at 22:30 Diphenhydramine HCl (Benadryl) 25 mg Q6H PRN PO ITCHING Last administered on 13:21; Admin Dose 25 MG; Start 03/08/17 at 10:30 Acetaminophen/ Hydrocodone Bitart ([place] (5/325)) 1 tab Q4H PRN PO PAIN Last administered on 03/09/17 20:33; Admin Dose 1 TAB; Start 03/08/17 at 10:30 Diphenhydramine HCl (Benadryl) 25 mg Q6H PRN IV itching Last administered on 15:45; Admin Dose 25 MG; Start 03/08/17 at 15:00 Magnesium Citrate (Citroma) 300 ml ONCE ONCE PO ; Start 03/14/17 at 17:30; Stop 03/14/17 at 17:31 Polyethylene Glycol (Miralax) 119 gm ONCE ONCE PO ; Start 03/14/17 at 18:30; Stop 03/14/17 at 18:31 SLY WRIGHT MD Mar 14, 2017 16:10
[2017-03-14] MEDS ORDERED: MAGNESIUM CITRATE 300 ML BTL PO ONE (17:30)
[2017-03-14] MEDS ORDERED: POLYETHYLENE GLYCOL 3350 119 GM POWDER PO ONE (18:30)
[2017-03-14] MEDS: FENTAnyl PATCH 50 MCG/HR TRANSDERM SCH (18:37)
[2017-03-14] MEDS: QUETIAPINE 100 MG TAB PO SCH (21:02)
[2017-03-14 21:42] VITALS: BP 98/63; RESP 18
[2017-03-15] VITALS (13 sets, daily range): BP systolic 86–118; BP diastolic 51–67; PULSE 77–114; RESP 18–22
[2017-03-15] MEDS: morphine 2 MG INJ IV PRN ×2 (01:42→04:39)
[2017-03-15] MEDS ORDERED: POLYETHYLENE GLYCOL 3350 119 GM POWDER PO ONE (02:00)
[2017-03-15] MEDS: DIPHENHYDRAMINE 50 MG INJ IV PRN ×4 (04:38→22:31)
[2017-03-15] MEDS: PANTOPRAZOLE (EC) 40 MG TAB PO SCH (05:35)
[2017-03-15 06:11] LABS: ADD SCAN DIFF NO
[2017-03-15 07:26] LABS: CALCIUM 9.6 mg/dl (8.4-10.2); CREATININE 0.61 mg/dl (0.44-1.00); POTASSIUM 4.1 mmol/L (3.5-5.1)
[2017-03-15] MEDS: HEPARIN 5,000 UNIT/0.5 ML VIAL SC SCH ×3 (08:24→21:40)
[2017-03-15] MEDS: LEVETIRACETAM 500 MG TAB PO SCH ×2 (08:24→21:33)
[2017-03-15 08:36] LABS: BASOPHILS % 0.7 % (0.0-2.0); EOSINOPHILS # 0.1 10^3/ul (0.0-0.5); EOSINOPHILS % 2.1 % (0.0-7.0); HEMATOCRIT 35.3 % (37.0-47.0); HEMOGLOBIN 11.3 g/dl (12.0-16.0); LYMPHOCYTES # 2.1 10^3/ul (0.8-2.9); LYMPHOCYTES % 35.5 % (15.0-51.0); MEAN CORPUSCULAR HEMOGLOBIN 27.7 pg (29.0-33.0); MEAN CORPUSCULAR VOLUME 86.5 fl (82.0-101.0); MEAN PLATELET VOLUME 10.4 fl (7.4-10.4); MONOCYTE # 0.4 10^3/ul (0.3-0.9); MONOCYTES % 6.6 % (0.0-11.0); NEUTROPHIL # 3.2 10^3/ul (1.6-7.5); NEUTROPHILS % 54.8 % (39.0-77.0); PLATELET COUNT 212 10^3/UL (140-415); RED BLOOD COUNT 4.08 10^6/ul (4.20-5.40); RED CELL DISTRIBUTION WIDTH 13.6 % (11.5-14.5); WHITE BLOOD COUNT 5.8 10^3/ul (4.8-10.8)
[2017-03-15] MEDS ORDERED: METOCLOPRAMIDE 10 MG INJ IV ONE (09:00)
[2017-03-15] MEDS ORDERED: TRIMETHOBENZAMIDE 100 MG/ML VIAL IM ONE (09:00)
[2017-03-15] MEDS ORDERED: LIDOCAINE 2% (SDV) 5 ML INJ ONE (09:06)
[2017-03-15] MEDS ORDERED: MIDAZOLAM 1 MG/ML 2 ML INJ ONE (09:06)
[2017-03-15] MEDS ORDERED: PROPOFOL 20 ML ONE ×2 (09:06→09:07)
[2017-03-15] MEDS ORDERED: EPHEDrine SULFATE 50 MG/5 ML SYG ONE (09:48)
[2017-03-15] MEDS ORDERED: HYDROmorphONE (0.2 MG/ML) 10ML SYG IV PRN (10:00)
[2017-03-15] MEDS ORDERED: DIPHENHYDRAMINE 50 MG INJ IV PRN (10:00)
--- NOTE | 2017-03-15 10:10 | GILP ---
DATE OF PROCEDURE: 03/15/2017 PROCEDURE: Esophagogastroduodenoscopy with biopsies. BRIEF HISTORY AND INDICATIONS: The patient is being evaluated for unexplained anemia. PREMEDICATION: Monitored anesthesia care by anesthesiologist. SURGEON: Renaldo Wade MD. INSTRUMENT USED: Olympus panendoscope. TECHNIQUE: After informed consent, with the patient/relatives understanding the procedure, its indic ations, potential risks and complications, including but not limited to: allergic reaction, bleeding , perforation or infection, and after all pertinent questions were answered to the patient's satisfa ction, the patient/relatives signed witnessed informed consent. Following this, premedication was administered slowly IV push under careful cardiovascular and respi ratory monitoring with pulse oximetry, automatic blood pressure and pvc monitor. Once the sedative effect was achieved the patient was place in the left lateral decubitus, the panen doscope was introduced and advanced under visual control. Careful examination of the upper gastrointestinal tract, both on insertion as well as withdrawal of the instrument disclosed the following findings: ESOPHAGUS: The distal esophagus shows erythema and edema of the mucosa of a moderate degree. STOMACH: Upon entrance to the stomach air was insufflated. The gastric crandall distended normally. The mucosa of the gastric body and antrum show erythema and edema of a moderate degree. Biopsies we re obtained to rule out H. pylori infection. PYLORUS: The pylorus appears patent and within normal limits, with no evidence of gastric outlet obs truction. DUODENUM: The duodenal mucosa was carefully examined in the duodenal bulb as well as the second port ion of the duodenum and appears unremarkable with no evidence of duodenitis, ulcer or neoplasm. The instrument was then withdrawn, the patient tolerated the procedure well and was transfer out of the endoscopy suite awake, and in good condition to continue recovery under observation IMPRESSION: 1. Distal esophagitis, moderate. 2. Gastritis, moderate. Rule out H. pylori infection. Biopsies were obtained. PLAN: The patient will be continued on a PPI. Further recommendation will depend on the patient's clinical course, as well as review of biopsies. Dictated By: RENALDO GIFFORD Conf#: [id number] DID#: [id number]
--- NOTE | 2017-03-15 10:14 | GILP ---
DATE OF PROCEDURE: 03/15/2017 PROCEDURE: Colonoscopy with biopsies. BRIEF HISTORY AND INDICATIONS: The patient is being evaluated for hematochezia and anemia. PREMEDICATION: Monitored anesthesia care by anesthesiologist. SURGEON: Renaldo Wade MD. INSTRUMENT USED: Olympus colonoscope. PREPARATION: Adequate. TECHNIQUE: After informed consent, with the patient/relatives understanding the procedure, its indic ations potential risks and complications, including but not limited to: allergic reaction, bleeding, perforation, infection, missed lesions and after all pertinent questions were answered to the patie nt's satisfaction, the patient/relatives signed the witnessed informed consent. Following this, premedication was administered slowly IV push by under careful cardiovascular and re spiratory monitoring with pulse oximetry, automatic blood pressure and environmental monitoring specialist. Once the sedativ e effect was achieved, the patient was placed in the left lateral decubitus position, digital rectal examination was performed. The colonoscope was then introduced and advanced under visual control th roughout all segments of the colon including: the rectum, sigmoid, descending colon, splenic flexure , transverse colon, hepatic flexure, ascending colon and finally reaching the cecum which was clearl y identified by transillumination, finger indentation and the ileocecal valve. Careful examination o f the mucosa of the lower gastrointestinal tract both on insertion as well as withdrawal of the inst rument disclosed the following findings: Rectal Examination: No evidence of perirectal disease, no masses. Colonic Mucosa: The colonic mucosa is essentially unremarkable throughout. The ileocecal valve was clearly identified and appears unremarkable. Biopsies were obtained randomly to rule out microscop ic, lymphocytic or collagenous colitis. Moderate size internal hemorrhoids are present. The instrument was then withdrawn, the patient tolerated the procedure well and was transferred out of the Endoscopy Suite awake and in good condition to continue recovery under observation. IMPRESSION: 1. Normal colonic mucosa. Rule out microscopic lymphocytic or collagenous colitis. Biopsies were obtained. 2. Moderate size internal hemorrhoids, the probable source of hematochezia. PLAN: Pathology will be reviewed as soon as available. Diet will be advanced as tolerated, and con servative management of hemorrhoidal disease is recommended. Dictated By: RENALDO WADE MS/MONIKA Conf#: [id number] DID#: [id number]
--- NOTE | 2017-03-15 10:42 | PN ---
Date/Time of Note Date/Time of Note DATE: 03/15/17 TIME: 10:37 Assessment/Plan VTE Prophylaxis VTE Prophylaxis Intervention: other Lines/Catheters [facility] Type (from [facility] PICC Line Central line still needed: No Urinary Cath still in place: No Assessment/Plan Problems: (1) Syncope Status: Acute Comment: This may have been an etiology of a combination of pain medications and the addition of Catapres as an outpatient by the pain management. This would have been most likely done to augment the narcotics. Regardless she developed bradycardia with this. She has had no further bradycardia off of that and has no issues from a cardiac standpoint and is prepared and ready for discharge Qualifiers: Syncope type: unspecified Qualified Code: R55 - Syncope, unspecified syncope type (2) Symptomatic bradycardia Status: Resolved Comment: Resolved (3) Chronic pain syndrome Status: Chronic Comment: Please see the notes from our paint brush maker. Continued intravenous analgesia is unnecessary at this time. Patient stable for discharge. (4) Seizure disorder Status: Chronic Comment: As reported history and we do not have any of the data on that. However since she has been in the hospital and receiving antiepileptic medications there is been no activity. As such she is ready for discharge (5) Multiple complaints Status: Acute Comment: Patient had many complaints which included the bradycardia which is resolved the arm pain which has been seen by 2 orthopedists and can be followed up as an outpatient with physical therapy and is improving regardless GI tract complaints which is now fully resolved etc. Some of my colleagues have written that if we keep her that we can repeat doing her evaluations which would include neuroimaging of the brain and of the spine. However that does not need to be done as an inpatient would only be done if we are forced to retain her as an inpatient for other reasons which we do not have. She is ready for discharge Subjective 24 Hr Interval Summary Free Text/Dictation Patient is back from having had EGD and colonoscopy. No seizure activity arm is better Constitutional: no complaints (No fever chills or sweats) Eyes: no complaints ENT: no complaints Respiratory: no complaints Cardiovascular: no complaints Gastrointestinal: other (Patient reports after the colonoscopy she feels like she needs to forward or have loose bowel movements. Please note colonoscopy she would not have liquid left) Genitourinary: no complaints Musculoskeletal: back pain, other (Some shoulder pain which she rates at 3 out of 10) Neurologic: no complaints, other (Reports no seizure activity since admission.) Exam/Review of Systems Vital Signs Vitals Vital Signs Date Time Temp Pulse Resp B/P Pulse Ox O2 Delivery O2 Flow Rate FiO2 03/15/17 10:24 98.1 106 18 118/56 03/15/17 09:57 99 Room Air 03/15/17 09:32 5.0 Intake and Output 03/14/17 03/14/17 03/15/17 15:00 23:00 07:00 Intake Total 1196 ml Balance 1196 ml Exam Constitutional: alert, oriented Neck: non-tender, supple Respiratory: clear to auscultation, normal air movement Cardiovascular: nl pulses, regular rate and rhythm Gastrointestinal: nl liver, spleen, non-tender, soft Extremities: other (She is moving her right arm freely at the shoulder girdle) Results Result Diagram: 03/15/17 0558 03/15/17 0558 Results 24 hrs Laboratory Tests Test 03/15/17 05:58 White Blood Count 5.8 Red Blood Count 4.08 L Hemoglobin 11.3 L Hematocrit 35.3 L Mean Corpuscular Volume 86.5 Mean Corpuscular Hemoglobin 27.7 L Mean Corpuscular Hemoglobin Concent 32.0 Red Cell Distribution Width 13.6 Platelet Count 212 Mean Platelet Volume 10.4 Neutrophils % 54.8 Lymphocytes % 35.5 Monocytes % 6.6 Eosinophils % 2.1 Basophils % 0.7 Nucleated Red Blood Cells % 0.0 Neutrophils # 3.2 Lymphocytes # 2.1 Monocytes # 0.4 Eosinophils # 0.1 Basophils # 0.0 Nucleated Red Blood Cells # 0.0 Sodium Level 143 Potassium Level 4.1 Chloride Level 108 Carbon Dioxide Level 24 Anion Gap 15 Blood Urea Nitrogen 14 Creatinine 0.61 Glucose Level 92 Calcium Level 9.6 Medications Medications Current Medications Acetaminophen (Tylenol Tab) 650 mg Q6H PRN PO PAIN LEVEL 1-3 OR FEVER Last administered on 03/04/17 21:33; Admin Dose 650 MG; Start 02/25/17 at 18:00 Docusate Sodium (Colace) 100 mg Q12H PRN PO CONSTIPATION Last administered on 10:10; Admin Dose 100 MG; Start 02/25/17 at 18:00 Magnesium Hydroxide (Milk Of Mag) 30 ml DAILY PRN PO CONSTIPATION Last administered on 02/27/17 10:10; Admin Dose 30 ML; Start 02/25/17 at 18:00 Sodium Biphosphate/ Sodium Phosphate (Fleet Enema) 133 ml DAILY PRN [place] CONSTIPATION; Start 02/25/17 at 18:00 Pantoprazole (Protonix Tab) 40 mg DAILY@06 PO Last administered on 03/14/17 05: 28; Admin Dose 40 MG; Start 02/26/17 at 06:00 Heparin Sodium (Porcine) (Heparin (5000 Units/0.5 ml)) 5,000 unit Q12 SC Last administered on 03/12/17 20:45; Admin Dose 5,000 UNIT; Start 02/25/17 at 21:00 Nitroglycerin (Nitroglycerin (Sl Tab) 0.4 Mg) 1 tab Q5M PRN SL ANGINA; Start at 18:00 Levetiracetam (Keppra) 500 mg BID PO Last administered on 03/14/17 21:02; Admin Dose 500 MG; Start 02/25/17 at 21:00 IV Flush (NS 10 ml) 10 ml PRN PRN IV IV PROTOCOL Last administered on 03/13/17 09:00; Admin Dose 10 ML; Start 02/26/17 at 10:30 Quetiapine Fumarate (Seroquel) 100 mg HS PO Last administered on 03/14/17 21:02 ; Admin Dose 100 MG; Start 02/26/17 at 21:30 Fentanyl (Duragesic 50 Mcg/Hr Patch) 1 patch Q72H TRANSDERM Last administered on 03/14/17 18:37; Admin Dose 1 PATCH; Start 02/27/17 at 19:00 Promethazine HCl (Phenergan) 25 mg Q6H PRN PO NAUSEA AND/OR VOMITING Last administered on 03/02/17 11:36; Admin Dose 25 MG; Start 02/27/17 at 19:30 Morphine Sulfate (morphine) 2 mg Q4H PRN IV PAIN Last administered on 04:39; Admin Dose 2 MG; Start 03/04/17 at 22:30 Diphenhydramine HCl (Benadryl) 25 mg Q6H PRN PO ITCHING Last administered on 13:21; Admin Dose 25 MG; Start 03/08/17 at 10:30 Acetaminophen/ Hydrocodone Bitart ([place] (5/325)) 1 tab Q4H PRN PO PAIN Last administered on 03/09/17 20:33; Admin Dose 1 TAB; Start 03/08/17 at 10:30 Diphenhydramine HCl (Benadryl) 25 mg Q6H PRN IV itching Last administered on 04:38; Admin Dose 25 MG; Start 03/08/17 at 15:00 JORGE SANDHU MD Mar 15, 2017 10:42
[2017-03-15] MEDS: HYDROCODONE/APAP (5/325) TAB PO PRN ×3 (10:52→19:43)
[2017-03-15] MEDS: NITROGLYCERIN (SL) 0.4 MG TAB SL PRN ×3 (18:18→18:36)
[2017-03-15] MEDS ORDERED: DIPHENHYDRAMINE 50 MG INJ IV ONE (18:30)
[2017-03-15] MEDS: HYOSCYAMINE 0.125 MG TAB PO SCH (21:33)
[2017-03-15] MEDS: LORAZEPAM 2 MG INJ IV PRN (21:33)
[2017-03-15] MEDS: QUETIAPINE 100 MG TAB PO SCH (21:33)
[2017-03-15] MEDS: ACETAMINOPHEN 1000MG/100ML IV 100 ML IVPB PRN (22:31)
[2017-03-16] MEDS: HYOSCYAMINE 0.125 MG TAB PO SCH ×4 (01:51→18:54)
[2017-03-16] MEDS: HYDROCODONE/APAP (5/325) TAB PO PRN ×5 (01:52→20:04)
[2017-03-16] MEDS: LORAZEPAM 2 MG INJ IV PRN ×2 (03:26→09:39)
[2017-03-16] MEDS: DIPHENHYDRAMINE 50 MG INJ IV PRN ×3 (04:26→16:36)
[2017-03-16] MEDS: PANTOPRAZOLE (EC) 40 MG TAB PO SCH (05:41)
[2017-03-16 05:50] VITALS: BP 95/54; PULSE 85
[2017-03-16 07:54] VITALS: BP 96/54; RESP 18
[2017-03-16] MEDS: HEPARIN 5,000 UNIT/0.5 ML VIAL SC SCH ×2 (09:00→21:00)
[2017-03-16] MEDS: LEVETIRACETAM 500 MG TAB PO SCH ×2 (09:08→21:06)
[2017-03-16 09:37] LABS: ADD UMIC NO; UR BILIRUBIN (Dip) NEGATIVE (NEGATIVE); UR BLOOD (Dip) NEGATIVE (NEGATIVE); UR CLARITY CLEAR (CLEAR); UR COLOR LT. YELLOW (YELLOW); UR GLUCOSE (Dip) NEGATIVE (NEGATIVE); UR KETONES (Dip) NEGATIVE (NEGATIVE); UR LEUKOCYTE ESTERASE (Dip) NEGATIVE (NEGATIVE); UR NITRITE (Dip) NEGATIVE (NEGATIVE); UR TOTAL PROTEIN (Dip) NEGATIVE (NEGATIVE); UR UROBILINOGEN (Dip) 0.2 E.U./dL (0.1-1.0)
--- NOTE | 2017-03-16 10:41 | PN ---
Date/Time of Note Date/Time of Note DATE: 03/16/17 TIME: 10:32 Assessment/Plan VTE Prophylaxis VTE Prophylaxis Intervention: ambulation Lines/Catheters IV C[facility]ter Type (from [facility]): PICC Line Central line still needed: Yes Urinary Cath still in place: No Assessment/Plan Chief Complaint/Hosp Course Problems: Assessment/Plan Assessment * Hematochezia Internal hemorrhoids * EGD Distal esophagitis, moderate. Gastritis, moderate. Rule out H. pylori infection. . * Right shoulder sprain * History of seizures * S?P Hypotension/bradycardia improved Plan * Protonix 40 mg daily * Review biopsy result * Stable for outpatient management Subjective 24 Hr Interval Summary Free Text/Dictation * Course reviewed with RN * Patient seen and examined * EGD 03/15/2017 Distal esophagitis, moderate. Gastritis, moderate. Rule out H. pylori infection. Biopsies were obtained. * Colonoscopy 03/15/2017 . Normal colonic mucosa. Rule out microscopic lymphocytic or collagenous colitis. Biopsies were obtained. Moderate size internal hemorrhoids, the probable source of hematochezia. Exam/Review of Systems Vital Signs Vitals Vital Signs Date Time Temp Pulse Resp B/P Pulse Ox O2 Delivery O2 Flow Rate FiO2 03/16/17 07:54 98.6 96 18 96/54 95 03/15/17 18:23 Room Air 03/15/17 09:32 5.0 Intake and Output 03/15/17 03/15/17 03/16/17 15:00 23:00 07:00 Intake Total 140 ml Balance 140 ml Exam Constitutional: alert, well developed Neck: non-tender, supple Respiratory: clear to auscultation, normal air movement Cardiovascular: nl pulses, regular rate and rhythm Gastrointestinal: nl liver, spleen, non-tender, soft Musculoskeletal: nl extremities to inspection, nl gait and stance Extremities: normal pulses Neurological: nl speech, nl strength Skin: nl turgor, rash or lesions Lymph: nl lymph nodes Results Result Diagram: 03/15/17 0558 03/15/17 0558 Results 24 hrs Laboratory Tests Test 03/15/17 19:00 03/16/17 05:53 Troponin I < 0.012 Urine Color LT. YELLOW Urine Clarity CLEAR Urine pH 6.5 Urine Specific [place] 1.025 Urine Ketones NEGATIVE Urine Nitrite NEGATIVE Urine Bilirubin NEGATIVE Urine Urobilinogen 0.2 E.U./dL Urine Leukocyte Esterase NEGATIVE Urine Hemoglobin NEGATIVE Urine Glucose NEGATIVE Urine Total Protein NEGATIVE Medications Medications Current Medications Acetaminophen (Tylenol Tab) 650 mg Q6H PRN PO PAIN LEVEL 1-3 OR FEVER Last administered on 03/04/17 21:33; Admin Dose 650 MG; Start 02/25/17 at 18:00 Docusate Sodium (Colace) 100 mg Q12H PRN PO CONSTIPATION Last administered on 10:10; Admin Dose 100 MG; Start 02/25/17 at 18:00 Magnesium Hydroxide (Milk Of Mag) 30 ml DAILY PRN PO CONSTIPATION Last administered on 02/27/17 10:10; Admin Dose 30 ML; Start 02/25/17 at 18:00 Sodium Biphosphate/ Sodium Phosphate (Fleet Enema) 133 ml DAILY PRN [place] CONSTIPATION; Start 02/25/17 at 18:00 Pantoprazole (Protonix Tab) 40 mg DAILY@06 PO Last administered on 03/16/17 05 :41; Admin Dose 40 MG; Start 02/26/17 at 06:00 Heparin Sodium (Porcine) (Heparin (5000 Units/0.5 ml)) 5,000 unit Q12 SC Last administered on 03/12/17 20:45; Admin Dose 5,000 UNIT; Start 02/25/17 at 21:00 Nitroglycerin (Nitroglycerin (Sl Tab) 0.4 Mg) 1 tab Q5M PRN SL ANGINA Last administered on 03/15/17 18:36; Admin Dose 1 TAB; Start 02/25/17 at 18:00 Levetiracetam (Keppra) 500 mg BID PO Last administered on 03/16/17 09:08; Admin Dose 500 MG; Start 02/25/17 at 21:00 IV Flush (NS 10 ml) 10 ml PRN PRN IV IV PROTOCOL Last administered on 03/13/17 09:00; Admin Dose 10 ML; Start 02/26/17 at 10:30 Quetiapine Fumarate (Seroquel) 100 mg HS PO Last administered on 03/15/17 21: 33; Admin Dose 100 MG; Start 02/26/17 at 21:30 Fentanyl (Duragesic 50 Mcg/Hr Patch) 1 patch Q72H TRANSDERM Last administered on 03/14/17 18:37; Admin Dose 1 PATCH; Start 02/27/17 at 19:00 Promethazine HCl (Phenergan) 25 mg Q6H PRN PO NAUSEA AND/OR VOMITING Last administered on 03/02/17 11:36; Admin Dose 25 MG; Start 02/27/17 at 19:30 Diphenhydramine HCl (Benadryl) 25 mg Q6H PRN PO ITCHING Last administered on 13:21; Admin Dose 25 MG; Start 03/08/17 at 10:30 Diphenhydramine HCl (Benadryl) 25 mg Q6H PRN IV itching Last administered on 04:26; Admin Dose 25 MG; Start 03/08/17 at 15:00 Simethicone (Mylicon) 80 mg Q2H PRN PO DISTENSION/GAS/BLOATING Last administered on 03/15/17 12:03; Admin Dose 80 MG; Start 03/15/17 at 12:00 Hyoscyamine (Levsin) 0.125 mg Q6 PO Last administered on 03/16/17 05:41; Admin Dose 0.125 MG; Start 03/15/17 at 18:00 Acetaminophen/ Hydrocodone Bitart 2 tab 2 tab Q4H PRN PO PAIN Last administered on 03/16/17 10:07; Admin Dose 2 TAB; Start 03/15/17 at 18:30 Acetaminophen (Ofirmev 1000mg/ 100ml Iv) 100 ml @ 400 mls/hr Q8 PRN IVPB PAIN Last administered on 03/15/17 22:31; Admin Dose 400 MLS/HR; Start 03/15/17 at 21:00 Lorazepam (Ativan) 1 mg Q6H PRN IV ANXIETY Last administered on 03/16/17 09:39 ; Admin Dose 1 MG; Start 03/15/17 at 21:30 RENALDO SHELTON MD Mar 16, 2017 10:41
--- NOTE | 2017-03-16 12:10 | PN ---
Date/Time of Note Date/Time of Note DATE: 03/16/17 TIME: 12:05 Assessment/Plan VTE Prophylaxis VTE Prophylaxis Intervention: ambulation Lines/Catheters IV Catheter Type (from [facility]): PICC Line Central line still needed: No Urinary Cath still in place: No Assessment/Plan Problems: (1) Syncope Status: Acute Comment: No further episodes of syncope. She has done well from the standpoint and is stable for discharge. Qualifiers: Syncope type: unspecified Qualified Code: R55 - Syncope, unspecified syncope type (2) Multiple complaints Status: Acute Comment: Patient continues multiple complaints. There is a report from the patient of neurologic infection. However she had a copy of the CT scan report from another facility which she was shared with us which demonstrated a normal examination. There is a significant overlay here including secondary gain somatization, and fear of being out on her own (3) Symptomatic bradycardia Status: Resolved Comment: Resolved with cessation of the clonidine (4) Chronic pain syndrome Status: Chronic Comment: She has a chronic pain syndrome physician who is reportedly a . The patient reports that this physician called her yesterday and stated that the withdrawal of her intravenous narcotics was done too quickly and she was withdrawing. Please note the patient has a fentanyl patch on at all times. This patient is not in withdrawal. She is stable for discharge (5) Seizure disorder Status: Chronic Comment: Resume gabapentin which will also help with the shoulder pain. This was from a sprain Subjective 24 Hr Interval Summary Free Text/Dictation Young lady sitting in bed. She alternates between saying that she is very debilitated, with complaints of nausea urinary incontinence and headache. Constitutional: no complaints (Denies fevers chills or sweats) Eyes: no complaints ENT: no complaints Respiratory: no complaints (Denies cough or shortness of breath) Cardiovascular: no complaints (Specifically denies palpitations chest pain or chest wall pain) Gastrointestinal: nausea, pain Genitourinary: other (Urinary incontinence) Musculoskeletal: back pain Neurologic: headache Psychological: anxiety Exam/Review of Systems Vital Signs Vitals Vital Signs Date Time Temp Pulse Resp B/P Pulse Ox O2 Delivery O2 Flow Rate FiO2 03/16/17 07:54 98.6 96 18 96/54 95 03/15/17 18:23 Room Air 03/15/17 09:32 5.0 Intake and Output 03/15/17 03/15/17 03/16/17 15:00 23:00 07:00 Intake Total 140 ml Balance 140 ml Exam Initially curled up in the bed but once engaged in conversation with the nurse present for the entire time (Idania) she became quite active involved and animated. Constitutional: alert, oriented Psych: anxiety Neck: non-tender, supple Cardiovascular: nl pulses (Ludwig physical exam limited due to patient reluctance nurse present at all times), regular rate and rhythm Results Result Diagram: 03/15/1758 03/15/17 0558 Results 24 hrs Laboratory Tests Test 03/15/17 19:00 03/16/17 05:53 Troponin I < 0.012 Urine Color LT. YELLOW Urine Clarity CLEAR Urine pH 6.5 Urine Specific [place] 1.025 Urine Ketones NEGATIVE Urine Nitrite NEGATIVE Urine Bilirubin NEGATIVE Urine Urobilinogen 0.2 E.U./dL Urine Leukocyte Esterase NEGATIVE Urine Hemoglobin NEGATIVE Urine Glucose NEGATIVE Urine Total Protein NEGATIVE Medications Medications Current Medications Acetaminophen (Tylenol Tab) 650 mg Q6H PRN PO PAIN LEVEL 1-3 OR FEVER Last administered on 03/04/17 21:33; Admin Dose 650 MG; Start 02/25/17 at 18:00 Docusate Sodium (Colace) 100 mg Q12H PRN PO CONSTIPATION Last administered on 10:10; Admin Dose 100 MG; Start 02/25/17 at 18:00 Magnesium Hydroxide (Milk Of Mag) 30 ml DAILY PRN PO CONSTIPATION Last administered on 02/27/17 10:10; Admin Dose 30 ML; Start 02/25/17 at 18:00 Sodium Biphosphate/ Sodium Phosphate (Fleet Enema) 133 ml DAILY PRN [place] CONSTIPATION; Start 02/25/17 at 18:00 Pantoprazole (Protonix Tab) 40 mg DAILY@06 PO Last administered on 03/16/17 05 :41; Admin Dose 40 MG; Start 02/26/17 at 06:00 Heparin Sodium (Porcine) (Heparin (5000 Units/0.5 ml)) 5,000 unit Q12 SC Last administered on 03/12/17 20:45; Admin Dose 5,000 UNIT; Start 02/25/17 at 21:00 Nitroglycerin (Nitroglycerin (Sl Tab) 0.4 Mg) 1 tab Q5M PRN SL ANGINA Last administered on 03/15/17 18:36; Admin Dose 1 TAB; Start 02/25/17 at 18:00 Levetiracetam (Keppra) 500 mg BID PO Last administered on 03/16/17 09:08; Admin Dose 500 MG; Start 02/25/17 at 21:00 IV Flush (NS 10 ml) 10 ml PRN PRN IV IV PROTOCOL Last administered on 03/13/17 09:00; Admin Dose 10 ML; Start 02/26/17 at 10:30 Quetiapine Fumarate (Seroquel) 100 mg HS PO Last administered on 03/15/17 21: 33; Admin Dose 100 MG; Start 02/26/17 at 21:30 Fentanyl (Duragesic 50 Mcg/Hr Patch) 1 patch Q72H TRANSDERM Last administered on 03/14/17 18:37; Admin Dose 1 PATCH; Start 02/27/17 at 19:00 Promethazine HCl (Phenergan) 25 mg Q6H PRN PO NAUSEA AND/OR VOMITING Last administered on 03/02/17 11:36; Admin Dose 25 MG; Start 02/27/17 at 19:30 Diphenhydramine HCl (Benadryl) 25 mg Q6H PRN PO ITCHING Last administered on 13:21; Admin Dose 25 MG; Start 03/08/17 at 10:30 Diphenhydramine HCl (Benadryl) 25 mg Q6H PRN IV itching Last administered on 10:36; Admin Dose 25 MG; Start 03/08/17 at 15:00 Simethicone (Mylicon) 80 mg Q2H PRN PO DISTENSION/GAS/BLOATING Last administered on 03/15/17 12:03; Admin Dose 80 MG; Start 03/15/17 at 12:00 Hyoscyamine (Levsin) 0.125 mg Q6 PO Last administered on 03/16/17 05:41; Admin Dose 0.125 MG; Start 03/15/17 at 18:00 Acetaminophen/ Hydrocodone Bitart 2 tab 2 tab Q4H PRN PO PAIN Last administered on 03/16/17 10:07; Admin Dose 2 TAB; Start 03/15/17 at 18:30 Acetaminophen (Ofirmev 1000mg/ 100ml Iv) 100 ml @ 400 mls/hr Q8 PRN IVPB PAIN Last administered on 03/15/17 22:31; Admin Dose 400 MLS/HR; Start 03/15/17 at 21:00 Lorazepam (Ativan) 1 mg Q6H PRN IV ANXIETY Last administered on 03/16/17 09:39 ; Admin Dose 1 MG; Start 03/15/17 at 21:30 JORGE SANDHU MD Mar 16, 2017 12:10
[2017-03-16] MEDS ORDERED: LORAZEPAM 2 MG INJ IV PRN (13:00)
[2017-03-16] MEDS: GABAPENTIN 300 MG CAP PO SCH ×2 (13:09→21:06)
--- NOTE | 2017-03-16 14:42 | RADRPT ---
Vent Rate: 80 bpm RR Interval: 0 msec NH Interval: 164 msec QRS Duration: 90 msec QT Interval: 400 msec QTC Interval: 461 msec P-R-T [place]: 0 - 0 - 123 degrees Normal sinus rhythm Arm lead reversal Poor Data Poor R-wave progression Abnormal ECG No previous tracing available for comparison Electronically Signed By: Joshua Randolph [id number]
[2017-03-16 20:30] VITALS: BP 91/50; RESP 19
[2017-03-16] MEDS: DIAZEPAM 5 MG TAB PO SCH (21:06)
[2017-03-16] MEDS: QUETIAPINE 100 MG TAB PO SCH (21:06)
[2017-03-17] MEDS: HYOSCYAMINE 0.125 MG TAB PO SCH ×4 (00:55→18:16)
[2017-03-17] MEDS: DIPHENHYDRAMINE 50 MG INJ IV PRN ×4 (01:01→18:44)
[2017-03-17] MEDS: PANTOPRAZOLE (EC) 40 MG TAB PO SCH (05:23)
[2017-03-17] MEDS: HYDROCODONE/APAP (5/325) TAB PO PRN ×4 (06:59→20:56)
[2017-03-17 07:45] VITALS: BP 90/51; RESP 18
[2017-03-17] MEDS: HEPARIN 5,000 UNIT/0.5 ML VIAL SC SCH ×2 (09:00→21:00)
[2017-03-17] MEDS: LEVETIRACETAM 500 MG TAB PO SCH ×2 (09:23→20:56)
[2017-03-17] MEDS: GABAPENTIN 300 MG CAP PO SCH ×3 (09:23→20:56)
--- NOTE | 2017-03-17 16:46 | PN ---
Date/Time of Note Date/Time of Note DATE: 03/17/17 TIME: 16:45 Assessment/Plan VTE Prophylaxis VTE Prophylaxis Intervention: SCD's Lines/Catheters IV Catheter Type (from Nrsg): PICC Line Central line still needed: No Urinary Cath still in place: No Assessment/Plan Assessment/Plan 46 yo F with pmhx seizure d/o, chronic pain 2/2 multiple spinal surgeries for spinal tumor, anxiety/depression admtited for bradycardia, thought to be iatrogenic. Resolved with alternation of pain/BP meds. sp fall onto R shoulder 5.28 without evidence of fracture. PLAN cont current BP regimen pt to be walked by nursing or PT TID cont AED and seizure precautions SCDs general diet dispo pending PT clearance, arrangement for HH services near pt's sister's home of note, pt also seen by GI last week for hematochezia, per their eval likely 2/ 2 int hemorrhoids, gastritis, esophagitis. PPI started Subjective 24 Hr Interval Summary Free Text/Dictation Per discussion with nursing, pt not yet "cleared" by PT as pt reports feeling unsteady on her feet with ambulation. Nursing also reports pt has been able to ambulate independently to the bathroom without incident. Exam/Review of Systems Vital Signs Vitals Vital Signs Date Time Temp Pulse Resp B/P Pulse Ox O2 Delivery O2 Flow Rate FiO2 03/17/17 07:45 98.5 107 18 90/51 95 03/15/17 18:23 Room Air 03/15/17 09:32 5.0 Intake and Output 03/16/17 03/16/17 03/17/17 15:00 23:00 07:00 Intake Total 240 ml 760 ml 480 ml Balance 240 ml 760 ml 480 ml Exam nad, laying in bed no mrg lungs clear no abd distension no rashes Results Result Diagram: 03/15/17 0558 03/15/17 0558 Medications Medications Current Medications Acetaminophen (Tylenol Tab) 650 mg Q6H PRN PO PAIN LEVEL 1-3 OR FEVER Last administered on 03/04/17 21:33; Admin Dose 650 MG; Start 02/25/17 at 18:00 Docusate Sodium (Colace) 100 mg Q12H PRN PO CONSTIPATION Last administered on 10:10; Admin Dose 100 MG; Start 02/25/17 at 18:00 Magnesium Hydroxide (Milk Of Mag) 30 ml DAILY PRN PO CONSTIPATION Last administered on 02/27/17 10:10; Admin Dose 30 ML; Start 02/25/17 at 18:00 Sodium Biphosphate/ Sodium Phosphate (Fleet Enema) 133 ml DAILY PRN OR CONSTIPATION; Start 02/25/17 at 18:00 Pantoprazole (Protonix Tab) 40 mg DAILY@06 PO Last administered on 03/17/17 05 :23; Admin Dose 40 MG; Start 02/26/17 at 06:00 Heparin Sodium (Porcine) (Heparin (5000 Units/0.5 ml)) 5,000 unit Q12 SC Last administered on 03/12/17 20:45; Admin Dose 5,000 UNIT; Start 02/25/17 at 21:00 Nitroglycerin (Nitroglycerin (Sl Tab) 0.4 Mg) 1 tab Q5M PRN SL ANGINA Last administered on 03/15/17 18:36; Admin Dose 1 TAB; Start 02/25/17 at 18:00 Levetiracetam (Keppra) 500 mg BID PO Last administered on 03/17/17 09:23; Admin Dose 500 MG; Start 02/25/17 at 21:00 IV Flush (NS 10 ml) 10 ml PRN PRN IV IV PROTOCOL Last administered on 03/13/17 09:00; Admin Dose 10 ML; Start 02/26/17 at 10:30 Fentanyl (Duragesic 50 Mcg/Hr Patch) 1 patch Q72H TRANSDERM Last administered on 03/14/17 18:37; Admin Dose 1 PATCH; Start 02/27/17 at 19:00 Promethazine HCl (Phenergan) 25 mg Q6H PRN PO NAUSEA AND/OR VOMITING Last administered on 03/02/17 11:36; Admin Dose 25 MG; Start 02/27/17 at 19:30 Diphenhydramine HCl (Benadryl) 25 mg Q6H PRN PO ITCHING Last administered on 13:21; Admin Dose 25 MG; Start 03/08/17 at 10:30 Diphenhydramine HCl (Benadryl) 25 mg Q6H PRN IV itching Last administered on 13:05; Admin Dose 25 MG; Start 03/08/17 at 15:00 Simethicone (Mylicon) 80 mg Q2H PRN PO DISTENSION/GAS/BLOATING Last administered on 03/15/17 12:03; Admin Dose 80 MG; Start 03/15/17 at 12:00 Hyoscyamine (Levsin) 0.125 mg Q6 PO Last administered on 03/17/17 12:44; Admin Dose 0.125 MG; Start 03/15/17 at 18:00 Acetaminophen/ Hydrocodone Bitart 2 tab 2 tab Q4H PRN PO PAIN Last administered on 03/17/17 16:37; Admin Dose 2 TAB; Start 03/15/17 at 18:30 Acetaminophen (Ofirmev 1000mg/ 100ml Iv) 100 ml @ 400 mls/hr Q8 PRN IVPB PAIN Last administered on 03/15/17 22:31; Admin Dose 400 MLS/HR; Start 03/15/17 at 21:00 Quetiapine Fumarate (Seroquel) 400 mg HS PO Last administered on 03/16/17 21: 06; Admin Dose 400 MG; Start 03/16/17 at 21:00 Diazepam (Valium) 10 mg QHS PO Last administered on 03/16/17 21:06; Admin Dose 10 MG; Start 03/16/17 at 21:00 Gabapentin (Neurontin) 300 mg TID PO Last administered on 03/17/17 12:45; Admin Dose 300 MG; Start 03/16/17 at 13:00 REY BLACKMON MD Mar 17, 2017 16:46
[2017-03-17] MEDS: DIAZEPAM 5 MG TAB PO SCH (20:56)
[2017-03-17] MEDS: QUETIAPINE 100 MG TAB PO SCH (20:56)
[2017-03-17 21:02] VITALS: BP 86/49; RESP 16
[2017-03-17] MEDS: FENTAnyl PATCH 50 MCG/HR TRANSDERM SCH (22:49)
[2017-03-18] MEDS: HYOSCYAMINE 0.125 MG TAB PO SCH ×5 (01:01→23:45)
[2017-03-18] MEDS: DIPHENHYDRAMINE 50 MG INJ IV PRN ×4 (01:03→20:39)
[2017-03-18] MEDS: HYDROCODONE/APAP (5/325) TAB PO PRN ×5 (03:47→22:00)
[2017-03-18] MEDS: PANTOPRAZOLE (EC) 40 MG TAB PO SCH (05:13)
[2017-03-18 08:18] VITALS: BP 84/52; RESP 20
[2017-03-18] MEDS: LEVETIRACETAM 500 MG TAB PO SCH ×2 (08:26→20:39)
[2017-03-18] MEDS: GABAPENTIN 300 MG CAP PO SCH ×3 (08:26→20:39)
[2017-03-18] MEDS: HEPARIN 5,000 UNIT/0.5 ML VIAL SC SCH ×2 (08:27→20:38)
--- NOTE | 2017-03-18 16:24 | PN ---
Date/Time of Note Date/Time of Note DATE: 03/18/17 TIME: 16:22 Assessment/Plan VTE Prophylaxis VTE Prophylaxis Intervention: ambulation Lines/Catheters IV Catheter Type (from [facility]): PICC Line Central line still needed: Yes Urinary Cath still in place: No Assessment/Plan Assessment/Plan Assessment * Hematochezia resolved Internal hemorrhoids * EGD Distal esophagitis, moderate. Gastritis, moderate. Rule out H. pylori infection. . * Right shoulder sprain * History of seizures * S?P Hypotension/bradycardia improved Plan * Protonix 40 mg daily * Stable for outpatient management Subjective 24 Hr Interval Summary Free Text/Dictation * course reviewed with RN * Patient seen and examined * Denies hematochezia Exam/Review of Systems Vital Signs Vitals Vital Signs Date Time Temp Pulse Resp B/P Pulse Ox O2 Delivery O2 Flow Rate FiO2 03/18/17 08:18 98.4 92 20 84/52 95 03/15/17 18:23 Room Air 03/15/17 09:32 5.0 Intake and Output 03/17/17 03/17/17 03/18/17 15:00 23:00 07:00 Intake Total 355 ml 480 ml Balance 355 ml 480 ml Exam Constitutional: alert Head: normocephalic Neck: non-tender, supple Respiratory: clear to auscultation, normal air movement Cardiovascular: nl pulses, regular rate and rhythm Gastrointestinal: nl liver, spleen, non-tender, soft Musculoskeletal: nl extremities to inspection, nl gait and stance Extremities: normal pulses Results Result Diagram: 03/15/17 0558 03/15/17 0558 Medications Medications Current Medications Acetaminophen (Tylenol Tab) 650 mg Q6H PRN PO PAIN LEVEL 1-3 OR FEVER Last administered on 03/04/17 21:33; Admin Dose 650 MG; Start 02/25/17 at 18:00 Docusate Sodium (Colace) 100 mg Q12H PRN PO CONSTIPATION Last administered on 10:10; Admin Dose 100 MG; Start 02/25/17 at 18:00 Magnesium Hydroxide (Milk Of Mag) 30 ml DAILY PRN PO CONSTIPATION Last administered on 02/27/17 10:10; Admin Dose 30 ML; Start 02/25/17 at 18:00 Sodium Biphosphate/ Sodium Phosphate (Fleet Enema) 133 ml DAILY PRN [place] CONSTIPATION; Start 02/25/17 at 18:00 Pantoprazole (Protonix Tab) 40 mg DAILY@06 PO Last administered on 03/18/17 05 :13; Admin Dose 40 MG; Start 02/26/17 at 06:00 Heparin Sodium (Porcine) (Heparin (5000 Units/0.5 ml)) 5,000 unit Q12 SC Last administered on 03/18/17 08:27; Admin Dose 5,000 UNIT; Start 02/25/17 at 21:00 Nitroglycerin (Nitroglycerin (Sl Tab) 0.4 Mg) 1 tab Q5M PRN SL ANGINA Last administered on 03/15/17 18:36; Admin Dose 1 TAB; Start 02/25/17 at 18:00 Levetiracetam (Keppra) 500 mg BID PO Last administered on 03/18/17 08:26; Admin Dose 500 MG; Start 02/25/17 at 21:00 IV Flush (NS 10 ml) 10 ml PRN PRN IV IV PROTOCOL Last administered on 03/13/17 09:00; Admin Dose 10 ML; Start 02/26/17 at 10:30 Fentanyl (Duragesic 50 Mcg/Hr Patch) 1 patch Q72H TRANSDERM Last administered on 03/17/17 22:49; Admin Dose 1 PATCH; Start 02/27/17 at 19:00 Promethazine HCl (Phenergan) 25 mg Q6H PRN PO NAUSEA AND/OR VOMITING Last administered on 03/02/17 11:36; Admin Dose 25 MG; Start 02/27/17 at 19:30 Diphenhydramine HCl (Benadryl) 25 mg Q6H PRN PO ITCHING Last administered on 13:21; Admin Dose 25 MG; Start 03/08/17 at 10:30 Diphenhydramine HCl (Benadryl) 25 mg Q6H PRN IV itching Last administered on 14:41; Admin Dose 25 MG; Start 03/08/17 at 15:00 Simethicone (Mylicon) 80 mg Q2H PRN PO DISTENSION/GAS/BLOATING Last administered on 03/15/17 12:03; Admin Dose 80 MG; Start 03/15/17 at 12:00 Hyoscyamine (Levsin) 0.125 mg Q6 PO Last administered on 03/18/17 13:20; Admin Dose 0.125 MG; Start 03/15/17 at 18:00 Acetaminophen/ Hydrocodone Bitart 2 tab 2 tab Q4H PRN PO PAIN Last administered on 03/18/17 13:20; Admin Dose 2 TAB; Start 03/15/17 at 18:30 Acetaminophen (Ofirmev 1000mg/ 100ml Iv) 100 ml @ 400 mls/hr Q8 PRN IVPB PAIN Last administered on 03/15/17 22:31; Admin Dose 400 MLS/HR; Start 03/15/17 at 21:00 Quetiapine Fumarate (Seroquel) 400 mg HS PO Last administered on 03/17/17 20: 56; Admin Dose 400 MG; Start 03/16/17 at 21:00 Diazepam (Valium) 10 mg QHS PO Last administered on 03/17/17 20:56; Admin Dose 10 MG; Start 03/16/17 at 21:00 Gabapentin (Neurontin) 300 mg TID PO Last administered on 03/18/17 13:20; Admin Dose 300 MG; Start 03/16/17 at 13:00 ROSELIA MURDOCK NP Mar 18, 2017 16:24
--- NOTE | 2017-03-18 16:36 | PN ---
Date/Time of Note Date/Time of Note DATE: 03/18/17 TIME: 16:27 Assessment/Plan VTE Prophylaxis VTE Prophylaxis Intervention: SCD's Lines/Catheters IV Catheter Type (from Nrsg): PICC Line Central line still needed: No Urinary Cath still in place: No Assessment/Plan Assessment/Plan 46 yo F with pmhx seizure d/o, chronic pain 2/2 multiple spinal surgeries for spinal tumor, anxiety/depression admtited for bradycardia, thought to be iatrogenic. Resolved with alternation of pain/BP meds. sp fall onto R shoulder 5.28 without evidence of fracture. PLAN cont current BP regimen pt to be walked by nursing or PT TID cont AED and seizure precautions SCDs general diet dispo pending PT clearance, arrangement for HH services if hand swelling not improved by AM, consider US of note, pt also seen by GI last week for hematochezia, per their eval likely 2/ 2 int hemorrhoids, gastritis, esophagitis. PPI started Subjective 24 Hr Interval Summary Free Text/Dictation Per PT needs stair training prior to discharge Nurse and pt note some swelling to front of pt's R hand Exam/Review of Systems Vital Signs Vitals Vital Signs Date Time Temp Pulse Resp B/P Pulse Ox O2 Delivery O2 Flow Rate FiO2 03/18/17 08:18 98.4 92 20 84/52 95 03/15/17 18:23 Room Air 03/15/17 09:32 5.0 Intake and Output 03/17/17 03/17/17 03/18/17 14:59 22:59 06:59 Intake Total 355 ml 480 ml Balance 355 ml 480 ml Exam nad, laying in bed no mrg lungs clear abd soft no rashes +minimal swelling noted 2 cm proximal to the web between pt's first and second finger, multiple small apertures from previous IVs noted in this area. No fluctuation, tenderness, or erythema. No swelling proximal to this area. No wrist or forearm swelling Results Result Diagram: 03/15/17 0558 03/15/17 0558 Medications Medications Current Medications Acetaminophen (Tylenol Tab) 650 mg Q6H PRN PO PAIN LEVEL 1-3 OR FEVER Last administered on 03/04/17t 21:33; Admin Dose 650 MG; Start 02/25/17 at 18:00 Docusate Sodium (Colace) 100 mg Q12H PRN PO CONSTIPATION Last administered on 10:10; Admin Dose 100 MG; Start 02/25/17 at 18:00 Magnesium Hydroxide (Milk Of Mag) 30 ml DAILY PRN PO CONSTIPATION Last administered on 02/27/17 10:10; Admin Dose 30 ML; Start 02/25/17 at 18:00 Sodium Biphosphate/ Sodium Phosphate (Fleet Enema) 133 ml DAILY PRN [place] CONSTIPATION; Start 02/25/17 at 18:00 Pantoprazole (Protonix Tab) 40 mg DAILY@06 PO Last administered on 03/18/17 05 :13; Admin Dose 40 MG; Start 02/26/17 at 06:00 Heparin Sodium (Porcine) (Heparin (5000 Units/0.5 ml)) 5,000 unit Q12 SC Last administered on 03/18/17 08:27; Admin Dose 5,000 UNIT; Start 02/25/17 at 21:00 Nitroglycerin (Nitroglycerin (Sl Tab) 0.4 Mg) 1 tab Q5M PRN SL ANGINA Last administered on 03/15/17 18:36; Admin Dose 1 TAB; Start 02/25/17 at 18:00 Levetiracetam (Keppra) 500 mg BID PO Last administered on 03/18/17 08:26; Admin Dose 500 MG; Start 02/25/17 at 21:00 IV Flush (NS 10 ml) 10 ml PRN PRN IV IV PROTOCOL Last administered on 03/13/17 09:00; Admin Dose 10 ML; Start 02/26/17 at 10:30 Fentanyl (Duragesic 50 Mcg/Hr Patch) 1 patch Q72H TRANSDERM Last administered on 03/17/17 22:49; Admin Dose 1 PATCH; Start 02/27/17 at 19:00 Promethazine HCl (Phenergan) 25 mg Q6H PRN PO NAUSEA AND/OR VOMITING Last administered on 03/02/17 11:36; Admin Dose 25 MG; Start 02/27/17 at 19:30 Diphenhydramine HCl (Benadryl) 25 mg Q6H PRN PO ITCHING Last administered on 13:21; Admin Dose 25 MG; Start 03/08/17 at 10:30 Diphenhydramine HCl (Benadryl) 25 mg Q6H PRN IV itching Last administered on 14:41; Admin Dose 25 MG; Start 03/08/17 at 15:00 Simethicone (Mylicon) 80 mg Q2H PRN PO DISTENSION/GAS/BLOATING Last administered on 03/15/17 12:03; Admin Dose 80 MG; Start 03/15/17 at 12:00 Hyoscyamine (Levsin) 0.125 mg Q6 PO Last administered on 03/18/17 13:20; Admin Dose 0.125 MG; Start 03/15/17 at 18:00 Acetaminophen/ Hydrocodone Bitart 2 tab 2 tab Q4H PRN PO PAIN Last administered on 03/18/17 13:20; Admin Dose 2 TAB; Start 03/15/17 at 18:30 Acetaminophen (Ofirmev 1000mg/ 100ml Iv) 100 ml @ 400 mls/hr Q8 PRN IVPB PAIN Last administered on 03/15/17 22:31; Admin Dose 400 MLS/HR; Start 03/15/17 at 21:00 Quetiapine Fumarate (Seroquel) 400 mg HS PO Last administered on 03/17/17 20: 56; Admin Dose 400 MG; Start 03/16/17 at 21:00 Diazepam (Valium) 10 mg QHS PO Last administered on 03/17/17 20:56; Admin Dose 10 MG; Start 03/16/17 at 21:00 Gabapentin (Neurontin) 300 mg TID PO Last administered on 03/18/17 13:20; Admin Dose 300 MG; Start 03/16/17 at 13:00 REY BLACKMON MD Mar 18, 2017 16:36
[2017-03-18 20:06] VITALS: BP 90/55; RESP 19
[2017-03-18] MEDS: QUETIAPINE 100 MG TAB PO SCH (20:39)
[2017-03-18] MEDS: DIAZEPAM 5 MG TAB PO SCH (20:39)
[2017-03-19] MEDS: HYDROCODONE/APAP (5/325) TAB PO PRN ×4 (02:16→17:22)
[2017-03-19] MEDS: DOCUSATE SODIUM 100 MG CAP PO PRN (02:18)
[2017-03-19] MEDS: DIPHENHYDRAMINE 50 MG INJ IV PRN ×4 (03:09→20:55)
[2017-03-19] MEDS: PANTOPRAZOLE (EC) 40 MG TAB PO SCH (06:16)
[2017-03-19] MEDS: HYOSCYAMINE 0.125 MG TAB PO SCH ×4 (06:16→23:51)
[2017-03-19 07:50] VITALS: BP 96/50; RESP 18
[2017-03-19] MEDS: HEPARIN 5,000 UNIT/0.5 ML VIAL SC SCH ×2 (08:07→20:47)
[2017-03-19] MEDS: GABAPENTIN 300 MG CAP PO SCH ×3 (08:07→20:46)
[2017-03-19] MEDS: LEVETIRACETAM 500 MG TAB PO SCH ×2 (08:07→20:46)
--- NOTE | 2017-03-19 10:51 | PN ---
Date/Time of Note Date/Time of Note DATE: 03/19/17 TIME: 10:47 Assessment/Plan VTE Prophylaxis VTE Prophylaxis Intervention: heparin Lines/Catheters IV Catheter Type (from Nrsg): PICC Line Central line still needed: Yes Urinary Cath still in place: No Assessment/Plan Chief Complaint/Hosp Course Assessment and plan 1. History of multiple back surgeries with chronic back pain. Continue with analgesics. Physical therapy following. Continue recommendations. 2. Reported syncope. No further episodes noted at this time. Continue to monitor 3. Symptomatic bradycardia. Resolved at present. Patient off of clonidine at this time. Rate stable at present 4. Chronic pain syndrome. Continue with analgesics 5. Reported history of seizure. Continue with Keppra DISPO/PLAN: waitiing for stair training and physical therapy eval prior to d/c. continue with d/c planning. anticipate d/c within the next 24 hours Discussed plan of care with Dr Sorto. Problems: Subjective 24 Hr Interval Summary Free Text/Dictation No signs or symptoms of distress this time. Comfortable Exam/Review of Systems Vital Signs Vitals Vital Signs Date Time Temp Pulse Resp B/P Pulse Ox O2 Delivery O2 Flow Rate FiO2 03/19/17 07:50 98.4 80 18 96/50 96 03/15/17 18:23 Room Air 03/15/17 09:32 5.0 Intake and Output 03/18/17 03/18/17 03/19/17 15:00 23:00 07:00 Intake Total 1280 ml Balance 1280 ml Exam Constitutional: alert, oriented Head: normocephalic Neck: supple Respiratory: normal air movement Cardiovascular: other Gastrointestinal: non-tender, soft (Regular rate) Neurological: nl mental status, nl speech Results Result Diagram: 03/15/17 0558 03/15/17 0558 Medications Medications Current Medications Acetaminophen (Tylenol Tab) 650 mg Q6H PRN PO PAIN LEVEL 1-3 OR FEVER Last administered on 03/04/17 21:33; Admin Dose 650 MG; Start 02/25/17 at 18:00 Docusate Sodium (Colace) 100 mg Q12H PRN PO CONSTIPATION Last administered on 02:18; Admin Dose 100 MG; Start 02/25/17 at 18:00 Magnesium Hydroxide (Milk Of Mag) 30 ml DAILY PRN PO CONSTIPATION Last administered on 02/27/17 10:10; Admin Dose 30 ML; Start 02/25/17 at 18:00 Sodium Biphosphate/ Sodium Phosphate (Fleet Enema) 133 ml DAILY PRN [place] CONSTIPATION; Start 02/25/17 at 18:00 Pantoprazole (Protonix Tab) 40 mg DAILY@06 PO Last administered on 03/19/17 06 :16; Admin Dose 40 MG; Start 02/26/17 at 06:00 Heparin Sodium (Porcine) (Heparin (5000 Units/0.5 ml)) 5,000 unit Q12 SC Last administered on 03/19/17 08:07; Admin Dose 5,000 UNIT; Start 02/25/17 at 21:00 Nitroglycerin (Nitroglycerin (Sl Tab) 0.4 Mg) 1 tab Q5M PRN SL ANGINA Last administered on 03/15/17 18:36; Admin Dose 1 TAB; Start 02/25/17 at 18:00 Levetiracetam (Keppra) 500 mg BID PO Last administered on 03/19/17 08:07; Admin Dose 500 MG; Start 02/25/17 at 21:00 IV Flush (NS 10 ml) 10 ml PRN PRN IV IV PROTOCOL Last administered on 03/13/17 09:00; Admin Dose 10 ML; Start 02/26/17 at 10:30 Fentanyl (Duragesic 50 Mcg/Hr Patch) 1 patch Q72H TRANSDERM Last administered on 03/17/17 22:49; Admin Dose 1 PATCH; Start 02/27/17 at 19:00 Promethazine HCl (Phenergan) 25 mg Q6H PRN PO NAUSEA AND/OR VOMITING Last administered on 03/02/17 11:36; Admin Dose 25 MG; Start 02/27/17 at 19:30 Diphenhydramine HCl (Benadryl) 25 mg Q6H PRN PO ITCHING Last administered on 13:21; Admin Dose 25 MG; Start 03/08/17 at 10:30 Diphenhydramine HCl (Benadryl) 25 mg Q6H PRN IV itching Last administered on 09:13; Admin Dose 25 MG; Start 03/08/17 at 15:00 Simethicone (Mylicon) 80 mg Q2H PRN PO DISTENSION/GAS/BLOATING Last administered on 03/15/17 12:03; Admin Dose 80 MG; Start 03/15/17 at 12:00 Hyoscyamine (Levsin) 0.125 mg Q6 PO Last administered on 03/19/17 06:16; Admin Dose 0.125 MG; Start 03/15/17 at 18:00 Acetaminophen/ Hydrocodone Bitart 2 tab 2 tab Q4H PRN PO PAIN Last administered on 03/19/17 10:34; Admin Dose 2 TAB; Start 03/15/17 at 18:30 Acetaminophen (Ofirmev 1000mg/ 100ml Iv) 100 ml @ 400 mls/hr Q8 PRN IVPB PAIN Last administered on 03/15/17 22:31; Admin Dose 400 MLS/HR; Start 03/15/17 at 21:00 Quetiapine Fumarate (Seroquel) 400 mg HS PO Last administered on 03/18/17 20: 39; Admin Dose 400 MG; Start 03/16/17 at 21:00 Diazepam (Valium) 10 mg QHS PO Last administered on 03/18/17 20:39; Admin Dose 10 MG; Start 03/16/17 at 21:00 Gabapentin (Neurontin) 300 mg TID PO Last administered on 03/19/17 08:07; Admin Dose 300 MG; Start 03/16/17 at 13:00 KAREEM SOLIS Mar 19, 2017 10:51
[2017-03-19 20:08] VITALS: BP 90/55; RESP 18
[2017-03-19] MEDS: DIAZEPAM 5 MG TAB PO SCH (20:45)
[2017-03-19] MEDS: QUETIAPINE 100 MG TAB PO SCH (20:46)
[2017-03-20] MEDS: DIPHENHYDRAMINE 50 MG INJ IV PRN ×4 (03:45→21:51)
[2017-03-20] MEDS: HYOSCYAMINE 0.125 MG TAB PO SCH ×3 (05:48→17:16)
[2017-03-20] MEDS: PANTOPRAZOLE (EC) 40 MG TAB PO SCH (05:48)
[2017-03-20 07:55] VITALS: BP 113/66; RESP 18
[2017-03-20] MEDS: LEVETIRACETAM 500 MG TAB PO SCH ×2 (08:12→20:40)
[2017-03-20] MEDS: GABAPENTIN 300 MG CAP PO SCH ×3 (08:12→20:40)
[2017-03-20] MEDS: HEPARIN 5,000 UNIT/0.5 ML VIAL SC SCH ×2 (08:14→20:43)
[2017-03-20] MEDS: HYDROCODONE/APAP (5/325) TAB PO PRN ×3 (08:18→17:16)
--- NOTE | 2017-03-20 12:28 | PN ---
DATE: 03/20/2017 INTERNAL MEDICINE FOLLOWUP SUBJECTIVE: Chart reviewed. Events noted. The patient was scheduled for discharge yesterday, but is still having some issues related to it and now case management is working on discharge to a [facility] facility. PHYSICAL EXAMINATION: VITAL SIGNS: Blood pressure 113/66, pulse 76, respirations 18, temperature 98.6, saturating 96%. HEENT: Pupils are equal and reactive to light. Anicteric sclerae. NECK: Supple, no JVD noted, no cervical adenopathy noted, no carotid bruits heard. LUNGS: Fair breath sounds bilaterally. CARDIOVASCULAR: S1, S2 normal. ABDOMEN: Soft, nontender. No organomegaly or masses noted. EXTREMITIES: No clubbing or cyanosis noted. NEUROLOGICAL: Awake. LABORATORIES: No labs. IMPRESSION: 1. History of multiple back surgeries with chronic back pain. 2. Possible syncope on arrival. 3. Symptomatic bradycardia, now resolved. 4. Chronic pain syndrome. 5. History of seizure disorder. PLAN: Discharge planning for possible jail as per case management, all the discharge instru ctions and medication reconciliation have already been done. Dictated By: ADRIANNE MACHADO MD, MA/MONIKA Conf#: [id number] DID#: [id number]
[2017-03-20] MEDS: FENTAnyl PATCH 50 MCG/HR TRANSDERM SCH (18:45)
[2017-03-20 20:07] VITALS: BP 86/51; RESP 18
[2017-03-20] MEDS: QUETIAPINE 100 MG TAB PO SCH (20:40)
[2017-03-20] MEDS: DIAZEPAM 5 MG TAB PO SCH (20:40)
[2017-03-21] MEDS: HYOSCYAMINE 0.125 MG TAB PO SCH ×4 (00:39→20:19)
[2017-03-21] MEDS: PANTOPRAZOLE (EC) 40 MG TAB PO SCH (05:11)
[2017-03-21] MEDS: HYDROCODONE/APAP (5/325) TAB PO PRN ×2 (05:11→09:05)
[2017-03-21] MEDS: DIPHENHYDRAMINE 50 MG INJ IV PRN (05:11)
[2017-03-21 07:25] VITALS: BP 95/56; RESP 18
[2017-03-21] MEDS: HEPARIN 5,000 UNIT/0.5 ML VIAL SC SCH ×2 (09:00→20:23)
[2017-03-21] MEDS: GABAPENTIN 300 MG CAP PO SCH (09:05)
[2017-03-21] MEDS: LEVETIRACETAM 500 MG TAB PO SCH ×2 (09:05→20:18)
--- NOTE | 2017-03-21 09:51 | PN ---
Date/Time of Note Date/Time of Note DATE: 03/21/17 TIME: 09:39 Assessment/Plan VTE Prophylaxis VTE Prophylaxis Intervention: heparin Lines/Catheters IV Catheter Type (from Nrsg): PICC Line Central line still needed: Yes Urinary Cath still in place: No Assessment/Plan Chief Complaint/Hosp Course Assessment and plan: 46 F with: 1. History of multiple back surgeries with chronic back pain. - Continue with analgesics cautiously, will re-consult pain mngt team, and taper pain meds today. Per discussion with pain mngt team today, will need to be off fentanyl patch and PO opioids before d/c to home or facility whenever she finally goes (as there is a concern that if she is on opioids at d/c time to SNF, she may sign out AMA from that facility with the patch on and overdose eventually). - continue Physical therapy while in house. Continue recommendations. 2. Reported syncope. No further episodes noted at this time. Continue to monitor 3. Symptomatic bradycardia. Resolved at present. Patient off of clonidine at this time. Rate stable at present 4. Chronic pain syndrome. Continue with analgesics 5. Reported history of seizure. Continue with Keppra DISPO/PLAN: anticipate d/c within the next 24 hours to either home or SNF. Problems: Subjective 24 Hr Interval Summary Free Text/Dictation Pt refused d/c home yesterday (states she wants to follow PT rec's and go to SNF, although their most recent documentation does not say anything about SNF placement). No acute events overnight. Exam/Review of Systems Vital Signs Vitals Vital Signs Date Time Temp Pulse Resp B/P Pulse Ox O2 Delivery O2 Flow Rate FiO2 03/21/17 07:25 98.2 74 18 95/56 96 Intake and Output 03/20/17 03/20/17 03/21/17 15:00 23:00 07:00 Intake Total 480 ml 120 ml Balance 480 ml 120 ml Exam HEENT: Pupils are equal and reactive to light. Anicteric sclerae. NECK: Supple, no JVD noted, no cervical adenopathy noted, no carotid bruits heard. LUNGS: Fair breath sounds bilaterally. CARDIOVASCULAR: S1, S2 normal. ABDOMEN: Soft, nontender. No organomegaly or masses noted. EXTREMITIES: No clubbing or cyanosis noted. NEUROLOGICAL: Awake, no focal deficits noted. Medications Medications Current Medications Acetaminophen (Tylenol Tab) 650 mg Q6H PRN PO PAIN LEVEL 1-3 OR FEVER Last administered on 03/04/17 21:33; Admin Dose 650 MG; Start 02/25/17 at 18:00 Docusate Sodium (Colace) 100 mg Q12H PRN PO CONSTIPATION Last administered on 02:18; Admin Dose 100 MG; Start 02/25/17 at 18:00 Magnesium Hydroxide (Milk Of Mag) 30 ml DAILY PRN PO CONSTIPATION Last administered on 02/27/17 10:10; Admin Dose 30 ML; Start 02/25/17 at 18:00 Sodium Biphosphate/ Sodium Phosphate (Fleet Enema) 133 ml DAILY PRN [place] CONSTIPATION; Start 02/25/17 at 18:00 Pantoprazole (Protonix Tab) 40 mg DAILY@06 PO Last administered on 03/21/17 05 :11; Admin Dose 40 MG; Start 02/26/17 at 06:00 Heparin Sodium (Porcine) (Heparin (5000 Units/0.5 ml)) 5,000 unit Q12 SC Last administered on 03/20/17 20:43; Admin Dose 5,000 UNIT; Start 02/25/17 at 21:00 Nitroglycerin (Nitroglycerin (Sl Tab) 0.4 Mg) 1 tab Q5M PRN SL ANGINA Last administered on 03/15/17 18:36; Admin Dose 1 TAB; Start 02/25/17 at 18:00 Levetiracetam (Keppra) 500 mg BID PO Last administered on 03/21/17 09:05; Admin Dose 500 MG; Start 02/25/17 at 21:00 IV Flush (NS 10 ml) 10 ml PRN PRN IV IV PROTOCOL Last administered on 15:41; Admin Dose 10 ML; Start 02/26/17 at 10:30 Fentanyl (Duragesic 50 Mcg/Hr Patch) 1 patch Q72H TRANSDERM Last administered on 03/20/17 18:45; Admin Dose 1 PATCH; Start 02/27/17 at 19:00 Promethazine HCl (Phenergan) 25 mg Q6H PRN PO NAUSEA AND/OR VOMITING Last administered on 03/02/17 11:36; Admin Dose 25 MG; Start 02/27/17 at 19:30 Diphenhydramine HCl (Benadryl) 25 mg Q6H PRN PO ITCHING Last administered on 13:21; Admin Dose 25 MG; Start 03/08/17 at 10:30 Simethicone (Mylicon) 80 mg Q2H PRN PO DISTENSION/GAS/BLOATING Last administered on 03/15/17 12:03; Admin Dose 80 MG; Start 03/15/17 at 12:00 Hyoscyamine 0.125 mg 0.125 mg Q6 PO Last administered on 03/21/17 05:11; Admin Dose 0.125 MG; Start 03/15/17 at 18:00 Acetaminophen (Ofirmev 1000mg/ 100ml Iv) 100 ml @ 400 mls/hr Q8 PRN IVPB PAIN Last administered on 03/15/17 22:31; Admin Dose 400 MLS/HR; Start 03/15/17 at 21:00 Quetiapine Fumarate (Seroquel) 400 mg HS PO Last administered on 03/20/17 20: 40; Admin Dose 400 MG; Start 03/16/17 at 21:00 Diazepam (Valium) 10 mg QHS PO Last administered on 03/20/17 20:40; Admin Dose 10 MG; Start 03/16/17 at 21:00 Gabapentin (Neurontin) 300 mg TID PO Last administered on 03/21/17 09:05; Admin Dose 300 MG; Start 03/16/17 at 13:00 Acetaminophen/ Hydrocodone Bitart ([place] (5/325)) 1 tab Q4H PRN PO PAIN; Start 03/21/17 at 10:30 BUNNY STORY Mar 21, 2017 09:51
[2017-03-21] MEDS ORDERED: HYDROCODONE/APAP (5/325) TAB PO PRN ×2 (10:30)
--- NOTE | 2017-03-21 11:03 | CONS ---
Date/Time of Note Date/Time of Note DATE: 03/21/17 TIME: 10:57 Consultation Date/Type/Reason Admit Date/Time February 25, 2017 at 14:49 Initial Consult Date 03/14/17 Type of Consultation: PalliativeCare 24 HR Interval Summary Free Text/Dictation I have reviewed pts chart and hospital course. She is very high risk for opioid treatments and I suggest outpatient follow up with pain management team and a multi disciplinary approach to her pain control including non opioid methods. Further suggest no opioid to be prescribed at [place] including fentanyl except what she currently using. Exam/Review of Systems Vital Signs Vitals Vital Signs Date Time Temp Pulse Resp B/P Pulse Ox O2 Delivery O2 Flow Rate FiO2 03/21/17 07:25 98.2 74 18 95/56 96 Intake and Output 03/20/17 03/20/17 03/21/17 15:00 23:00 07:00 Intake Total 480 ml 120 ml Balance 480 ml 120 ml Medications Medications Current Medications Acetaminophen (Tylenol Tab) 650 mg Q6H PRN PO PAIN LEVEL 1-3 OR FEVER Last administered on 03/04/17 21:33; Admin Dose 650 MG; Start 02/25/17 at 18:00 Docusate Sodium (Colace) 100 mg Q12H PRN PO CONSTIPATION Last administered on 02:18; Admin Dose 100 MG; Start 02/25/17 at 18:00 Magnesium Hydroxide (Milk Of Mag) 30 ml DAILY PRN PO CONSTIPATION Last administered on 02/27/17 10:10; Admin Dose 30 ML; Start 02/25/17 at 18:00 Sodium Biphosphate/ Sodium Phosphate (Fleet Enema) 133 ml DAILY PRN [place] CONSTIPATION; Start 02/25/17 at 18:00 Pantoprazole (Protonix Tab) 40 mg DAILY@06 PO Last administered on 03/21/17 05 :11; Admin Dose 40 MG; Start 02/26/17 at 06:00 Heparin Sodium (Porcine) (Heparin (5000 Units/0.5 ml)) 5,000 unit Q12 SC Last administered on 03/20/17 20:43; Admin Dose 5,000 UNIT; Start 02/25/17 at 21:00 Nitroglycerin (Nitroglycerin (Sl Tab) 0.4 Mg) 1 tab Q5M PRN SL ANGINA Last administered on 03/15/17 18:36; Admin Dose 1 TAB; Start 02/25/17 at 18:00 Levetiracetam (Keppra) 500 mg BID PO Last administered on 03/21/17 09:05; Admin Dose 500 MG; Start 02/25/17 at 21:00 IV Flush (NS 10 ml) 10 ml PRN PRN IV IV PROTOCOL Last administered on 15:41; Admin Dose 10 ML; Start 02/26/17 at 10:30 Fentanyl (Duragesic 50 Mcg/Hr Patch) 1 patch Q72H TRANSDERM Last administered on 03/20/17 18:45; Admin Dose 1 PATCH; Start 02/27/17 at 19:00 Promethazine HCl (Phenergan) 25 mg Q6H PRN PO NAUSEA AND/OR VOMITING Last administered on 03/02/17 11:36; Admin Dose 25 MG; Start 02/27/17 at 19:30 Diphenhydramine HCl (Benadryl) 25 mg Q6H PRN PO ITCHING Last administered on 13:21; Admin Dose 25 MG; Start 03/08/17 at 10:30 Simethicone (Mylicon) 80 mg Q2H PRN PO DISTENSION/GAS/BLOATING Last administered on 03/15/17 12:03; Admin Dose 80 MG; Start 03/15/17 at 12:00 Hyoscyamine 0.125 mg 0.125 mg Q6 PO Last administered on 03/21/17 05:11; Admin Dose 0.125 MG; Start 03/15/17 at 18:00 Acetaminophen (Ofirmev 1000mg/ 100ml Iv) 100 ml @ 400 mls/hr Q8 PRN IVPB PAIN Last administered on 03/15/17 22:31; Admin Dose 400 MLS/HR; Start 03/15/17 at 21:00 Quetiapine Fumarate (Seroquel) 400 mg HS PO Last administered on 03/20/17 20: 40; Admin Dose 400 MG; Start 03/16/17 at 21:00 Acetaminophen/ Hydrocodone Bitart ([place] (5/325)) 1 tab Q6H PRN PO PAIN; Start 03/21/17 at 10:30 Gabapentin (Neurontin) 200 mg TID PO ; Start 03/21/17 at 13:00 Diazepam (Valium) 5 mg QHS PO ; Start 03/21/17 at 21:00 BEAU GARCIA Mar 21, 2017 11:03
[2017-03-21] MEDS: DIPHENHYDRAMINE 25 MG CAP PO PRN ×2 (11:24→16:28)
[2017-03-21] MEDS: GABAPENTIN 100 MG CAP PO SCH ×2 (12:46→20:18)
[2017-03-21] MEDS: ACETAMINOPHEN 1000MG/100ML IV 100 ML IVPB PRN (13:58)
[2017-03-21] MEDS ORDERED: DIPHENHYDRAMINE 25 MG CAP PO ONE (15:00)
[2017-03-21] MEDS: QUETIAPINE 100 MG TAB PO SCH (20:19)
[2017-03-21 20:45] VITALS: BP 98/55; RESP 18
[2017-03-21] MEDS ORDERED: DIAZEPAM 5 MG TAB PO SCH (21:00)
[2017-03-22] MEDS: HYOSCYAMINE 0.125 MG TAB PO SCH ×4 (00:33→18:11)
[2017-03-22] MEDS: PANTOPRAZOLE (EC) 40 MG TAB PO SCH (05:46)
[2017-03-22] MEDS: DIPHENHYDRAMINE 25 MG CAP PO PRN ×2 (05:47→14:10)
[2017-03-22 07:25] VITALS: BP 87/48; RESP 16
[2017-03-22] MEDS: HEPARIN 5,000 UNIT/0.5 ML VIAL SC SCH ×3 (09:00→21:00)
[2017-03-22] MEDS: GABAPENTIN 100 MG CAP PO SCH ×3 (09:31→21:33)
[2017-03-22] MEDS: LEVETIRACETAM 500 MG TAB PO SCH ×2 (09:31→21:34)
--- NOTE | 2017-03-22 11:27 | PN ---
Date/Time of Note Date/Time of Note DATE: 03/22/17 TIME: 11:23 Assessment/Plan VTE Prophylaxis VTE Prophylaxis Intervention: other Lines/Catheters IV Catheter Type (from Nrs): PICC Line Central line still needed: No Urinary Cath still in place: No Assessment/Plan Problems: (1) Multiple complaints Status: Acute Comment: She has been evaluated by physical therapy carefully please see the notes. In addition she has been seen by pain management. She has outpatient pain management already established. Unfortunately her social situation has created some degree of alteration in goals targets for discharge etc. In a directed format she is at this time stable for discharge if we can arrange for home health. Please note there is issues of secondary gain which are limited. She remains on her fentanyl patch. She has been changed from Benadryl IV to Benadryl p.o. organ decrease in frequency so she gets less anticholinergic effect of this. (2) Chronic pain syndrome Status: Chronic Comment: She remains on pain medication but a limited staging. A consideration to raise the gabapentin is made however I am not certain that this is appropriate at this moment in this 1 individual (3) Seizure disorder Status: Chronic Comment: Quiescent Subjective 24 Hr Interval Summary Free Text/Dictation Patient lying on her left hand side in bed. Patient complains of symptoms that she describes as withdrawal from changing IV Benadryl to oral Benadryl. When asked to specifically clarify her's symptoms she has some vaginal itching. Constitutional: no complaints (No fevers chills or sweats) Eyes: no complaints ENT: no complaints (No ENT symptoms) Respiratory: no complaints (No cough shortness of breath chest pain or wheezing ) Cardiovascular: no complaints Gastrointestinal: no complaints (She reports some nausea but no emesis.) Exam/Review of Systems Vital Signs Vitals Vital Signs Date Time Temp Pulse Resp B/P Pulse Ox O2 Delivery O2 Flow Rate FiO2 03/22/17 07:25 98.5 73 16 87/48 98 Intake and Output 03/21/17 03/21/17 03/22/17 15:00 23:00 07:00 Intake Total 570 ml 950 ml Balance 570 ml 950 ml Exam Exam and interview done with nursing staff present.(chiles) Constitutional: alert, oriented Psych: nl mood/affect Head: atraumatic, normocephalic Neck: non-tender, supple Respiratory: clear to auscultation, normal air movement Cardiovascular: nl pulses, regular rate and rhythm Genitourinary - Female: other (Declined) Medications Medications Current Medications Docusate Sodium (Colace) 100 mg Q12H PRN PO CONSTIPATION Last administered on 02:18; Admin Dose 100 MG; Start 02/25/17 at 18:00 Magnesium Hydroxide (Milk Of Mag) 30 ml DAILY PRN PO CONSTIPATION Last administered on 02/27/17 10:10; Admin Dose 30 ML; Start 02/25/17 at 18:00 Sodium Biphosphate/ Sodium Phosphate (Fleet Enema) 133 ml DAILY PRN [place] CONSTIPATION; Start 02/25/17 at 18:00 Pantoprazole (Protonix Tab) 40 mg DAILY@06 PO Last administered on 03/22/17 05 :46; Admin Dose 40 MG; Start 02/26/17 at 06:00 Heparin Sodium (Porcine) (Heparin (5000 Units/0.5 ml)) 5,000 unit Q12 SC Last administered on 03/20/17 20:43; Admin Dose 5,000 UNIT; Start 02/25/17 at 21:00 Nitroglycerin (Nitroglycerin (Sl Tab) 0.4 Mg) 1 tab Q5M PRN SL ANGINA Last administered on 03/15/17 18:36; Admin Dose 1 TAB; Start 02/25/17 at 18:00 Levetiracetam (Keppra) 500 mg BID PO Last administered on 03/22/17 09:31; Admin Dose 500 MG; Start 02/25/17 at 21:00 IV Flush (NS 10 ml) 10 ml PRN PRN IV IV PROTOCOL Last administered on 15:41; Admin Dose 10 ML; Start 02/26/17 at 10:30 Fentanyl (Duragesic 50 Mcg/Hr Patch) 1 patch Q72H TRANSDERM Last administered on 03/20/17 18:45; Admin Dose 1 PATCH; Start 02/27/17 at 19:00 Promethazine HCl (Phenergan) 25 mg Q6H PRN PO NAUSEA AND/OR VOMITING Last administered on 03/02/17 11:36; Admin Dose 25 MG; Start 02/27/17 at 19:30 Diphenhydramine HCl (Benadryl) 25 mg Q6H PRN PO ITCHING Last administered on 05:47; Admin Dose 25 MG; Start 03/08/17 at 10:30 Simethicone (Mylicon) 80 mg Q2H PRN PO DISTENSION/GAS/BLOATING Last administered on 03/15/17 12:03; Admin Dose 80 MG; Start 03/15/17 at 12:00 Hyoscyamine (Levsin) 0.125 mg Q6 PO Last administered on 03/22/17 05:46; Admin Dose 0.125 MG; Start 03/15/17 at 18:00 Quetiapine Fumarate (Seroquel) 400 mg HS PO Last administered on 03/21/17 20: 19; Admin Dose 400 MG; Start 03/16/17 at 21:00 Gabapentin (Neurontin) 200 mg TID PO Last administered on 03/22/17 09:31; Admin Dose 200 MG; Start 03/21/17 at 13:00 JORGE SANDHU MD Mar 22, 2017 11:27
[2017-03-22] MEDS ORDERED: SERTRALINE 50 MG TAB PO SCH (12:00)
[2017-03-22] MEDS: PROMETHAZINE 25 MG TAB PO PRN ×2 (12:34→21:34)
[2017-03-22 16:30] VITALS: BP 96/70
[2017-03-22 18:19] VITALS: BP 105/60
[2017-03-22 20:51] VITALS: BP 111/65; RESP 18
[2017-03-22] MEDS: QUETIAPINE 100 MG TAB PO SCH (21:31)
[2017-03-22] MEDS ORDERED: ZOLPIDEM 5 MG TAB ONE (22:02)
[2017-03-23] MEDS: HYOSCYAMINE 0.125 MG TAB PO SCH ×5 (01:05→23:41)
[2017-03-23 01:10] VITALS: BP 92/60; PULSE 59
[2017-03-23] MEDS: DIPHENHYDRAMINE 25 MG CAP PO PRN ×2 (04:30→18:46)
[2017-03-23] MEDS: PANTOPRAZOLE (EC) 40 MG TAB PO SCH (05:44)
[2017-03-23 07:20] VITALS: BP 107/69; RESP 16
[2017-03-23] MEDS: LEVETIRACETAM 500 MG TAB PO SCH ×2 (08:38→21:07)
[2017-03-23] MEDS: GABAPENTIN 100 MG CAP PO SCH (08:38)
[2017-03-23] MEDS: PROMETHAZINE 25 MG TAB PO PRN ×2 (08:39→18:46)
[2017-03-23] MEDS: HEPARIN 5,000 UNIT/0.5 ML VIAL SC SCH ×2 (09:00→21:00)
--- NOTE | 2017-03-23 11:11 | PN ---
Date/Time of Note Date/Time of Note DATE: 03/23/17 TIME: 11:06 Assessment/Plan VTE Prophylaxis VTE Prophylaxis Intervention: other Lines/Catheters IV Catheter Type (from Nrs): PICC Line Central line still needed: No Urinary Cath still in place: No Assessment/Plan Problems: (1) Seizure disorder Status: Chronic Comment: There have been no activity or seizures while on medications during the entire hospitalization. (2) Chronic pain syndrome Status: Chronic Comment: This continues to be an issue, and we are now in a tug-of-war with discharge planning. Please note that there are 2 orders for discharge on the chart the patient is able to ambulate according to physical therapy notes. Based on all available information it is my considered opinion this patient is ready for discharge. She understands she will not be given a prescription for fentanyl upon leaving. She does have an outpatient pain management team reportedly. (3) Multiple complaints Status: Acute Comment: Patient is bringing up complaints that have previously been investigated which includes bright red blood per rectum please see her colonoscopy and EGD report she is ready for discharge. In addition she should not be treated with benzodiazepines or Ambien as per our palliative care pain management inpatient consult from Dr. Singh (4) Internal hemorrhoids Status: Chronic Comment: Noted and stable Subjective 24 Hr Interval Summary Free Text/Dictation Patient continues with variety of complaints about getting sweaty. Constitutional: no complaints Respiratory: no complaints Cardiovascular: no complaints Gastrointestinal: other (Patient complains of nausea and vomiting but the staff has no knowledge of any of it and there is been no evidence of it. In addition as I was interviewing her she was eating) Exam/Review of Systems Vital Signs Vitals Vital Signs Date Time Temp Pulse Resp B/P Pulse Ox O2 Delivery O2 Flow Rate FiO2 03/23/17 07:20 98.6 73 16 107/69 97 Intake and Output 03/22/17 03/22/17 03/23/17 15:00 23:00 07:00 Intake Total 540 ml 220 ml Balance 540 ml 220 ml Exam Nurse Nasim present during the entire interview and exam Constitutional: alert, oriented Respiratory: clear to auscultation, normal air movement Cardiovascular: nl pulses, regular rate and rhythm Medications Medications Current Medications Docusate Sodium (Colace) 100 mg Q12H PRN PO CONSTIPATION Last administered on 02:18; Admin Dose 100 MG; Start 02/25/17 at 18:00 Magnesium Hydroxide (Milk Of Mag) 30 ml DAILY PRN PO CONSTIPATION Last administered on 02/27/17 10:10; Admin Dose 30 ML; Start 02/25/17 at 18:00 Sodium Biphosphate/ Sodium Phosphate (Fleet Enema) 133 ml DAILY PRN [place] CONSTIPATION; Start 02/25/17 at 18:00 Pantoprazole (Protonix Tab) 40 mg DAILY@06 PO Last administered on 03/23/17 05 :44; Admin Dose 40 MG; Start 02/26/17 at 06:00 Heparin Sodium (Porcine) (Heparin (5000 Units/0.5 ml)) 5,000 unit Q12 SC Last administered on 03/20/17 20:43; Admin Dose 5,000 UNIT; Start 02/25/17 at 21:00 Nitroglycerin (Nitroglycerin (Sl Tab) 0.4 Mg) 1 tab Q5M PRN SL ANGINA Last administered on 03/15/17 18:36; Admin Dose 1 TAB; Start 02/25/17 at 18:00 Levetiracetam (Keppra) 500 mg BID PO Last administered on 03/23/17 08:38; Admin Dose 500 MG; Start 02/25/17 at 21:00 IV Flush (NS 10 ml) 10 ml PRN PRN IV IV PROTOCOL Last administered on 15:41; Admin Dose 10 ML; Start 02/26/17 at 10:30 Fentanyl (Duragesic 50 Mcg/Hr Patch) 1 patch Q72H TRANSDERM Last administered on 03/20/17 18:45; Admin Dose 1 PATCH; Start 02/27/17 at 19:00 Promethazine HCl (Phenergan) 25 mg Q6H PRN PO NAUSEA AND/OR VOMITING Last administered on 03/23/17 08:39; Admin Dose 25 MG; Start 02/27/17 at 19:30 Simethicone (Mylicon) 80 mg Q2H PRN PO DISTENSION/GAS/BLOATING Last administered on 03/15/17 12:03; Admin Dose 80 MG; Start 03/15/17 at 12:00 Hyoscyamine (Levsin) 0.125 mg Q6 PO Last administered on 03/23/17 05:44; Admin Dose 0.125 MG; Start 03/15/17 at 18:00 Quetiapine Fumarate (Seroquel) 400 mg HS PO Last administered on 03/22/17 21: 31; Admin Dose 400 MG; Start 03/16/17 at 21:00 Gabapentin (Neurontin) 200 mg TID PO Last administered on 03/23/17 08:38; Admin Dose 200 MG; Start 03/21/17 at 13:00 Diphenhydramine HCl (Benadryl) 25 mg Q8 PRN PO ITCHING Last administered on 04:30; Admin Dose 25 MG; Start 03/22/17 at 14:00 Sertraline HCl (Zoloft) 50 mg DAILY PO Last administered on 03/22/17 12:34; Admin Dose 50 MG; Start 03/22/17 at 12:00 JORGE SANDHU MD Mar 23, 2017 11:11
[2017-03-23] MEDS: GABAPENTIN 300 MG CAP PO SCH ×2 (13:26→21:07)
[2017-03-23] MEDS: FENTAnyl PATCH 50 MCG/HR TRANSDERM SCH (19:37)
[2017-03-23 20:25] VITALS: BP 120/68; RESP 16
[2017-03-23] MEDS ORDERED: ZOLPIDEM 5 MG TAB PO ONE (21:00)
[2017-03-23] MEDS: QUETIAPINE 100 MG TAB PO SCH (21:07)
[2017-03-23 21:13] VITALS: PULSE 61
[2017-03-24] MEDS: DIPHENHYDRAMINE 25 MG CAP PO PRN ×2 (05:58→14:08)
[2017-03-24] MEDS: PROMETHAZINE 25 MG TAB PO PRN ×2 (05:58→12:26)
[2017-03-24] MEDS: HYOSCYAMINE 0.125 MG TAB PO SCH ×3 (05:59→17:26)
[2017-03-24] MEDS: PANTOPRAZOLE (EC) 40 MG TAB PO SCH (05:59)
[2017-03-24 08:05] VITALS: BP 93/58; RESP 18
[2017-03-24] MEDS: LEVETIRACETAM 500 MG TAB PO SCH (08:54)
[2017-03-24] MEDS: HEPARIN 5,000 UNIT/0.5 ML VIAL SC SCH (08:54)
[2017-03-24] MEDS: GABAPENTIN 300 MG CAP PO SCH ×2 (08:54→12:26)
[2017-03-24] MEDS ORDERED: SOD CHLORIDE 0.9% 500 ML IV ONE (16:00)
--- NOTE | 2017-03-24 16:43 | PN ---
Date/Time of Note Date/Time of Note DATE: 03/24/17 TIME: 16:38 Assessment/Plan VTE Prophylaxis VTE Prophylaxis Intervention: heparin Lines/Catheters IV Catheter Type (from Nrsg): PICC Line Urinary Cath still in place: No Assessment/Plan Chief Complaint/Hosp Course Assessment and plan 1. History of multiple back surgeries with chronic back pain. Analgesics per pain management physician. (Of note patient recommended for an opioid analgesic upon discharge). Physical therapy following. Continue recommendations. 2. Reported syncope. No further episodes. Will monitor for now. 3. Symptomatic bradycardia. Resolved at present. Continue to hold off clonidine at this time. Rate stable 4. Chronic pain syndrome. Patient has follow-up with outpatient pain management physician. On analgesics per pain management physician recommendations 5. History of seizure. Continue on Keppra Disposition and plan: Patient noted to be hypotensive today with standing. We will bolus fluids. Analgesics per pain management physician. Tentative plan for possible alf facility placement versus home with home health services. Will follow up Discussed plan of care with Problems: Subjective 24 Hr Interval Summary Free Text/Dictation No acute distress noted. Was reported to be hypotensive with standing Exam/Review of Systems Vital Signs Vitals Vital Signs Date Time Temp Pulse Resp B/P Pulse Ox O2 Delivery O2 Flow Rate FiO2 03/24/17 08:05 98.2 59 18 93/58 96 03/23/17 21:13 Room Air Intake and Output 03/23/17 03/23/17 03/24/17 15:00 23:00 07:00 Intake Total 760 ml 580 ml Balance 760 ml 580 ml Exam Constitutional: alert, oriented Psych: nl mood/affect Neck: No jvd Respiratory: clear to auscultation, normal air movement Cardiovascular: regular rate and rhythm Gastrointestinal: non-tender, soft Musculoskeletal: No nl gait and stance Neurological: JEWELRY ESTIMATOR II-XII intact, nl mental status, nl speech Medications Medications Current Medications Docusate Sodium (Colace) 100 mg Q12H PRN PO CONSTIPATION Last administered on 02:18; Admin Dose 100 MG; Start 02/25/17 at 18:00 Magnesium Hydroxide (Milk Of Mag) 30 ml DAILY PRN PO CONSTIPATION Last administered on 02/27/17 10:10; Admin Dose 30 ML; Start 02/25/17 at 18:00 Sodium Biphosphate/ Sodium Phosphate (Fleet Enema) 133 ml DAILY PRN [place] CONSTIPATION; Start 02/25/17 at 18:00 Pantoprazole (Protonix Tab) 40 mg DAILY@06 PO Last administered on 03/24/17 05 :59; Admin Dose 40 MG; Start 02/26/17 at 06:00 Heparin Sodium (Porcine) (Heparin (5000 Units/0.5 ml)) 5,000 unit Q12 SC Last administered on 03/20/17 20:43; Admin Dose 5,000 UNIT; Start 02/25/17 at 21:00 Levetiracetam (Keppra) 500 mg BID PO Last administered on 03/24/17 08:54; Admin Dose 500 MG; Start 02/25/17 at 21:00 IV Flush (NS 10 ml) 10 ml PRN PRN IV IV PROTOCOL Last administered on 15:41; Admin Dose 10 ML; Start 02/26/17 at 10:30 Fentanyl (Duragesic 50 Mcg/Hr Patch) 1 patch Q72H TRANSDERM Last administered on 03/23/17 19:37; Admin Dose 1 PATCH; Start 02/27/17 at 19:00 Promethazine HCl (Phenergan) 25 mg Q6H PRN PO NAUSEA AND/OR VOMITING Last administered on 03/24/17 12:26; Admin Dose 25 MG; Start 02/27/17 at 19:30 Simethicone (Mylicon) 80 mg Q2H PRN PO DISTENSION/GAS/BLOATING Last administered on 03/15/17 12:03; Admin Dose 80 MG; Start 03/15/17 at 12:00 Hyoscyamine (Levsin) 0.125 mg Q6 PO Last administered on 03/24/17 12:26; Admin Dose 0.125 MG; Start 03/15/17 at 18:00 Quetiapine Fumarate (Seroquel) 400 mg HS PO Last administered on 03/23/17 21: 07; Admin Dose 400 MG; Start 03/16/17 at 21:00 Diphenhydramine HCl (Benadryl) 25 mg Q8 PRN PO ITCHING Last administered on 14:08; Admin Dose 25 MG; Start 03/22/17 at 14:00 Gabapentin 300 mg 300 mg TID PO Last administered on 03/24/17 12:26; Admin Dose 300 MG; Start 03/23/17 at 13:00 Sodium Chloride (NS) 500 ml @ 500 mls/hr Q1H ONCE IV Last administered on 03/24 16:11; Admin Dose 500 MLS/HR; Start 03/24/17 at 16:00; Stop 03/24/17 at 16 :59 KAREEM SOLIS Mar 24, 2017 16:43
[2017-03-24 17:51] VITALS: BP_SYST 105; BP_SYST 116; BP_DIAS 67; BP_DIAS 71
--- NOTE | 2017-03-26 11:18 | QN ---
Documentation Comment I (primary care team) was informed, patient became hypotensive in the afternoon (03/24/17) when working with PT. Patient was given bolus of IVF for this issue. PT did not clear patient for mobility due to dizziness and orthostatic hypotension. Therefore, plan was to plan for a possible residential facility placement vs. home with home health services once patient was more stable. Patient however was d/c on 03/24/17 without primary care team notified. Patient was previously planned for d/c on 03/19/17 if cleared by PT. Of note, patient was not discharged until 03/24/17 and prior to the discharge, patient was managed by 3 different primary hospitalists with care plans changed. Patient discharged without new discharge order and without primary care team aware. Discussed case with KAREEM Lares Mar 26, 2017 11:18
== END 2017-03-24 19:15 | disposition home or self-care (01) | DRG 309 ==
LOC: E/R 11:19 → TEL 14:49 → ICU 21:16 → MS4 02-27 17:15 → PP2 03-05 10:55
PROVIDERS: ADMIT Hospitalist; ATTEND Hospitalist
PROC: 02H633Z Insertion of Infusion Device into Right Atrium, Percutaneous Approach (ICD-10-PCS; 2017-02-26)
PROC: 0DBE8ZX Excision of Large Intestine, Via Natural or Artificial Opening Endoscopic, Diagnostic (ICD-10-PCS; 2017-03-15)
PROC: 0DB68ZX Excision of Stomach, Via Natural or Artificial Opening Endoscopic, Diagnostic (ICD-10-PCS; principal; 2017-03-15 09:00)
DX: R00.1 Bradycardia, unspecified (principal); B69.0 Cysticercosis of central nervous system; R56.9 Unspecified convulsions; I95.9 Hypotension, unspecified; S49.81XA Other specified injuries of right shoulder and upper arm, initial encounter; D64.9 Anemia, unspecified; K92.1 Melena; R51 Headache; R11.0 Nausea; Z87.891 Personal history of nicotine dependence; F41.8 Other specified anxiety disorders; Z79.891 Long term (current) use of opiate analgesic; T46.5X5A Adverse effect of other antihypertensive drugs, initial encounter; G89.4 Chronic pain syndrome; W01.0XXA Fall on same level from slipping, tripping and stumbling without subsequent striking against object, initial encounter; Y92.239 Unspecified place in hospital as the place of occurrence of the external cause; R07.89 Other chest pain; K20.9 Esophagitis, unspecified; K29.70 Gastritis, unspecified, without bleeding; K64.8 Other hemorrhoids
CPT/HCPCS: 36415; 36569; 71010; 73221; 76937; 80048; 80061; 81003; 82550; 82553; 83036; 83735; 84100; 84439; 84443; 84481; 84484; 85025; 85610; 85730; 88305; 88312; 93005; 93306; 96374; 97003; 97110; 97116; 97162; 97163; 97166; 97530; 97535; J0131; J1170; J1200; J1644; J2060; J2250; J2270; J2310; J3250; J3480; J7030; J7040